=== PATIENT | male | born 1945 | race Caucasian/White ===

== ENCOUNTER 2017-09-30 07:25 | Day surgery (SDC) | payer MEDICARE, BC ==
[2017-09-29 08:18] VITALS: BMI 32.5
[~2017-09-30 07:25] MED LIST: LACTATED RINGERS 1,000 ML IV SCH
[2017-09-30] MEDS ORDERED: LIDOCAINE 1% 20 ML VIAL (10MG/ML) FOR IV START INTRADERMA ONE (07:55)
[2017-09-30 07:56] VITALS: RESP 16; TEMP 97
[2017-09-30 08:11] LABS: Glucose,Whole Blood 140 mg/dL (75-99)
[2017-09-30] MEDS ORDERED: fentaNYL (PF) 50 MCG/ML 2 ML AMP ONE (08:55)
[2017-09-30] MEDS ORDERED: GLYCOPYRROLATE 0.2 MG/ML 2 ML VIAL ONE (08:55)
[2017-09-30] MEDS ORDERED: PROPOFOL 10 MG/ML 20 ML VIAL IV ONE (08:55)
--- NOTE | 2017-09-30 09:14 | P.PCN ---
Date of Procedure: 09/30/17 Procedure(s) Performed: Procedure: Esophagogastroduodenoscopy and biopsy. Preoperative diagnosis: Gastroesophageal reflux disease. Postoperative diagnosis: 1. Small sliding hiatal hernia with no obvious esophagitis or complicated reflux disease. 2. Mild antral gastritis. 3. Multiple biopsies obtained from the duodenum, antrum and esophagus. Preparation and sedation: Was provided by anesthesia. Brief clinical history: The patient is a 72-year-old male who is scheduled for this evaluation for further evaluation of gastroesophageal reflux disease. He has been on treatment with omeprazole for several years and over the last year he has required to take it twice a day because of breakthrough symptoms and chest pains. The patient has been recently evaluated by cardiology and pulmonary for his chest pains and it is felt that his symptoms may be related to reflux. He has no other alarm symptoms such as dysphagia, weight loss or bleeding. Procedure: With the patient on his left lateral decubitus position and after informed consent and adequate sedation, I passed the Olympus-GIF 160 video upper endoscope through the cricopharyngeus down the esophagus. GE junction was around 40-41 cm from the incisors and there was a small sliding hiatal hernia. There was no evidence of esophagitis or complicated reflux disease. The endoscope was then passed into the stomach which was insufflated with air and inspected in detail including the retroflex view in the cardia. There was some mottling and erythema in the antrum but no ulcers or erosions. Pyloric channel, duodenal bulb, post bulbar area and descending duodenum appeared within normal limits. Because of his symptoms, I obtained biopsies from the duodenum, antrum and esophagus before the endoscope was withdrawn. The patient tolerated the procedure well. Plan: The patient was reassured. Will await pathology results. He will follow up in the office as planned and would keep you updated on his progress.
[2017-09-30 09:26] VITALS: BP 132/84; PULSE 61
== END 2017-09-30 09:58 | disposition home or self-care (01) ==
LOC: ORWHC2ENDO 07:25
DX: K21.0 Gastro-esophageal reflux disease with esophagitis (principal); K44.9 Diaphragmatic hernia without obstruction or gangrene; E11.9 Type 2 diabetes mellitus without complications; Z79.84 Long term (current) use of oral hypoglycemic drugs; I10 Essential (primary) hypertension; E78.5 Hyperlipidemia, unspecified; Z86.711 Personal history of pulmonary embolism; F41.9 Anxiety disorder, unspecified; F32.9 Major depressive disorder, single episode, unspecified; Z79.51 Long term (current) use of inhaled steroids; Z79.899 Other long term (current) drug therapy
CPT/HCPCS: 88305; 43239; J3010; J2704

== ENCOUNTER 2017-10-20 13:05 | Inpatient (IN) | payer MEDICARE, BC ==
[2017-10-20] MEDS ORDERED: ASPIRIN 81 MG PO STA (13:34)
[2017-10-20] MEDS ORDERED: NITROGLYCERIN SL TABS 0.4 MG TAB SUBLINGUAL STA (13:34)
--- NOTE | 2017-10-20 13:40 | ED ---
General Adult HPI - General Chief complaint: Chest Pain Stated complaint: Chest pain Time Seen by Provider: 10/20/17 13:26 Source: patient, RN notes reviewed, old records reviewed Mode of arrival: wheelchair Limitations: no limitations - History of Present Illness Initial comments: 72-year-old male presenting with chief complaint of chest pain. Patient has had intermittent chest pain over the past 3 weeks. Pain is worse with exertion , relieved by rest. Describes it as substernal and left-sided chest pressure, dull sensation, he does admit that there is some intermittent episodes of sharp pain. This is associated with dyspnea. Denies any shoulder or arm or jaw pain. States he has had nausea with these episodes. No diaphoresis. Patient has known history of CAD, he follows with cardiology as an outpatient. According to his he had a heart cath approximately 10 years ago, he did have some coronary artery disease but no intervention performed. Patient denies abdominal pain. Denies lower extremity pain or swelling. Denies cough or fever. Denies melena or rectal bleeding - Related Data Home Medications Medication Instructions Recorded Confirmed Atorvastatin [Lipitor] 10 mg PO DAILY 06/15/14 10/20/17 Ascorbic Acid [Vitamin C] 500 mg PO DAILY 06/25/16 10/20/17 DULoxetine HCL [Cymbalta] 60 mg PO DAILY 06/25/16 10/20/17 LORazepam [Lorazepam] 0.5 mg PO HS 06/25/16 10/20/17 Lisinopril [Zestril] 5 mg PO HS 06/25/16 10/20/17 Multivitamins, Thera [Multivitamin 1 tab PO DAILY 06/25/16 10/20/17 (formulary)] Omeprazole 40 mg PO BID 06/25/16 10/20/17 Zinc 50 mg PO DAILY 06/25/16 10/20/17 Fluticasone/Salmeterol [Advair Hfa 2 puff INHALATION RT-BID PRN 09/29/17 230-21 Mcg Inhaler] glipiZIDE [Glucotrol] 5 mg PO DAILY 09/29/17 10/20/17 Aspirin EC [Ecotrin] 325 mg PO DAILY 10/20/17 10/20/17 Allergies Allergy/AdvReac Type Severity Reaction Status Date / Time No Known Allergies Allergy Verified 10/20/17 13:46 Review of Systems ROS Statement: Those systems with pertinent positive or pertinent negative responses have been documented in the HPI. ROS Other: All systems not noted in ROS Statement are negative. Past Medical History Past Medical History: Asthma, Diabetes Mellitus, GERD/Reflux, Hyperlipidemia, Hypertension, Pulmonary Embolus (PE) Additional Past Medical History / Comment(s): PE 1972, diff and pain with swallowing, History of Any Multi-Drug Resistant Organisms: None Reported Past Surgical History: Appendectomy, Cholecystectomy, Heart Catheterization, Tonsillectomy Past Anesthesia/Blood Transfusion Reactions: Motion Sickness Past Psychological History: Anxiety, Depression Smoking Status: Former smoker - Past Family History Mother Family Medical History: No Reported History General Exam Limitations: no limitations General appearance: alert, in no apparent distress Head exam: Present: atraumatic, normocephalic Eye exam: Present: normal appearance, PERRL ENT exam: Present: normal exam Neck exam: Present: normal inspection. Absent: tenderness, meningismus Respiratory exam: Present: normal lung sounds bilaterally. Absent: respiratory distress, wheezes Cardiovascular Exam: Present: regular rate, normal rhythm GI/Abdominal exam: Present: soft, distended. Absent: tenderness, guarding, rebound Extremities exam: Present: normal inspection, normal capillary refill, other ( Bilateral radial pulses are symmetric.). Absent: pedal edema Neurological exam: Present: alert, oriented X3, CN II-XII intact. Absent: motor sensory deficit Psychiatric exam: Present: normal affect, normal mood Skin exam: Present: warm, dry, intact. Absent: cyanosis, diaphoretic Course Vital Signs 10/20/17 10/20/17 10/20/17 13:07 13:41 13:48 Temperature 97.2 F L Pulse Rate 62 57 L Pulse Rate [ 56 L Miniature Model Maker ] Respiratory 18 18 Rate Blood Pressure 173/80 160/90 O2 Sat by Pulse 97 100 Oximetry 10/20/17 10/20/17 13:54 14:52 Temperature 97.8 F Pulse Rate 64 56 L Pulse Rate [ Miniature Model Maker ] Respiratory 18 18 Rate Blood Pressure 111/54 148/74 O2 Sat by Pulse 97 97 Oximetry - Reevaluation(s) Reevaluation #1: 10/20/17 13:39 Patient is comfortable, describes only minimal pain at the time of my initial evaluation. EKG Findings - EKG Comments: EKG Findings:: EKG shows sinus bradycardia, ventricular rate of 56, left anterior fascicular block, T-wave abnormality in lead V3 and biphasic T wave in lead 3. No ST segment elevation. Medical Decision Making - Medical Decision Making 72-year-old male presenting with typical chest pain worse with exertion. Patient does have history of CAD. He has developed 1 on a 10 rest pain. This is relieved with nitroglycerin. Laboratory studies reveal normal white blood cell count, stable hemoglobin, normal kidney function and electrolytes. Troponin is negative. Chest x-ray shows no acute process, no focal pneumonia. Patient is given an aspirin, nitroglycerin and started on heparin the emergency partner. He will be admitted for cardiology evaluation and serial cardiac enzymes. - Lab Data Result diagrams: 10/20/17 13:14 10/20/17 13:14 Lab Results 10/20/17 10/20/17 10/20/17 Range/Units 13:14 13:14 13:14 WBC 5.8 (3.8-10.6) k/uL RBC 4.34 (4.30-5.90) m/uL Hgb 13.3 (13.0-17.5) gm/dL Hct 40.0 (39.0-53.0) % MCV 92.0 (80.0-100.0) fL MCH 30.6 (25.0-35.0) pg MCHC 33.2 (31.0-37.0) g/dL RDW 13.2 (11.5-15.5) % Plt Count 180 (150-450) k/uL Neutrophils % 55 % Lymphocytes % 31 % Monocytes % 8 % Eosinophils % 4 % Basophils % 1 % Neutrophils # 3.2 (1.3-7.7) k/uL Lymphocytes # 1.8 (1.0-4.8) k/uL Monocytes # 0.5 (0-1.0) k/uL Eosinophils # 0.2 (0-0.7) k/uL Basophils # 0.0 (0-0.2) k/uL PT (9.0-12.0) sec INR (<1.2) APTT (22.0-30.0) sec Sodium 141 (137-145) mmol/L Potassium 4.5 (3.5-5.1) mmol/L Chloride 104 (98-107) mmol/L Carbon Dioxide 27 (22-30) mmol/L Anion Gap 10 mmol/L BUN 25 H (9-20) mg/dL Creatinine 1.00 (0.66-1.25) mg/dL Est GFR (MDRD) Af Amer >60 (>60 ml/min/1.73 sqM) Est GFR (MDRD) Non-Af >60 (>60 ml/min/1.73 sqM) Glucose 107 H (74-99) mg/dL Calcium 9.6 (8.4-10.2) mg/dL Magnesium 2.0 (1.6-2.3) mg/dL Total Bilirubin 0.7 (0.2-1.3) mg/dL AST 29 (17-59) U/L ALT 30 (21-72) U/L Alkaline Phosphatase 44 (38-126) U/L Total Creatine Kinase 83 (55-170) U/L CK-MB (CK-2) 1.2 (0.0-2.4) ng/mL CK-MB (CK-2) Rel Index 1.4 Troponin I <0.012 (0.000-0.034) ng/mL NT-Pro-B Natriuret Pep pg/mL Total Protein 6.8 (6.3-8.2) g/dL Albumin 3.9 (3.5-5.0) g/dL 10/20/17 10/20/17 Range/Units 13:14 13:14 WBC (3.8-10.6) k/uL RBC (4.30-5.90) m/uL Hgb (13.0-17.5) gm/dL Hct (39.0-53.0) % MCV (80.0-100.0) fL MCH (25.0-35.0) pg MCHC (31.0-37.0) g/dL RDW (11.5-15.5) % Plt Count (150-450) k/uL Neutrophils % % Lymphocytes % % Monocytes % % Eosinophils % % Basophils % % Neutrophils # (1.3-7.7) k/uL Lymphocytes # (1.0-4.8) k/uL Monocytes # (0-1.0) k/uL Eosinophils # (0-0.7) k/uL Basophils # (0-0.2) k/uL PT 9.8 (9.0-12.0) sec INR 1.0 (<1.2) APTT 22.1 (22.0-30.0) sec Sodium (137-145) mmol/L Potassium (3.5-5.1) mmol/L Chloride (98-107) mmol/L Carbon Dioxide (22-30) mmol/L Anion Gap mmol/L BUN (9-20) mg/dL Creatinine (0.66-1.25) mg/dL Est GFR (MDRD) Af Amer (>60 ml/min/1.73 sqM) Est GFR (MDRD) Non-Af (>60 ml/min/1.73 sqM) Glucose (74-99) mg/dL Calcium (8.4-10.2) mg/dL Magnesium (1.6-2.3) mg/dL Total Bilirubin (0.2-1.3) mg/dL AST (17-59) U/L ALT (21-72) U/L Alkaline Phosphatase (38-126) U/L Total Creatine Kinase (55-170) U/L CK-MB (CK-2) (0.0-2.4) ng/mL CK-MB (CK-2) Rel Index Troponin I (0.000-0.034) ng/mL NT-Pro-B Natriuret Pep 87 pg/mL Total Protein (6.3-8.2) g/dL Albumin (3.5-5.0) g/dL Critical Care Time Critical Care Time: Yes Total Critical Care Time: 35 Disposition Clinical Impression: Unstable angina pectoris Disposition: ADMITTED IP TO THIS [facility] Condition: Stable Referrals: Misha Mayfield MD [Primary Care Provider] - 1-2 days Decision to Admit Reason: Admit from EC Decision Date: 10/20/17 Decision Time: 14:57
[2017-10-20 14:00] LABS: Basophils % (A) 1 %; Eosinophils # (A) 0.2 k/uL (0-0.7); Eosinophils % (A) 4 %; HGB 13.3 gm/dL (13.0-17.5); Lymphocytes # (A) 1.8 k/uL (1.0-4.8); Lymphocytes % (A) 31 %; MCH 30.6 pg (25.0-35.0); MCHC 33.2 g/dL (31.0-37.0); Mean Platelet Volume 7.9; Monocytes # (A) 0.5 k/uL (0-1.0); Monocytes % (A) 8 %; Neutrophils # (A) 3.2 k/uL (1.3-7.7); Neutrophils % (A) 55 %; Platelet Count 180 k/uL (150-450); RBC 4.34 m/uL (4.30-5.90); RDW 13.2 % (11.5-15.5); WBC 5.8 k/uL (3.8-10.6)
[2017-10-20 14:04] LABS: Prothrombin Time 9.8 sec (9.0-12.0)
[2017-10-20 14:05] LABS: Partial Thromboplastin Time 22.1 sec (22.0-30.0)
[2017-10-20 14:10] LABS: ALT 30 U/L (21-72); AST 29 U/L (17-59); Albumin 3.9 g/dL (3.5-5.0); Alkaline Phosphatase 44 U/L (38-126); Anion Gap 10 mmol/L; Blood Urea Nitrogen 25 mg/dL (9-20); Calcium 9.6 mg/dL (8.4-10.2); Carbon Dioxide 27 mmol/L (22-30); Chloride 104 mmol/L (98-107); Glucose 107 mg/dL (74-99); Potassium 4.5 mmol/L (3.5-5.1); Sodium 141 mmol/L (137-145); Total Bilirubin 0.7 mg/dL (0.2-1.3); Total Protein 6.8 g/dL (6.3-8.2)
--- NOTE | 2017-10-20 14:15 | XR ---
EXAMINATION TYPE: XR chest 2V DATE OF EXAM: 10/20/2017 COMPARISON: CT chest July 29, 2016. HISTORY: Chest pain today. TECHNIQUE: Frontal and lateral views of the chest are obtained. FINDINGS: There is chronic emphysematous change with scattered areas of scarring and/or atelectasis. There is no new suspicious focal airspace opacity, pleural effusion, or pneumothorax seen bilateral ly The cardiac silhouette size is upper limits of normal currently. The osseous structures are inta ct. Cholecystectomy clips are noted on lateral view IMPRESSION: Chronic changes without acute pulmonary process.
[2017-10-20 14:29] LABS: Creatine Kinase 83 U/L (55-170)
[2017-10-20 14:40] LABS: Creatine Kinase MB 1.2 ng/mL (0.0-2.4); Troponin I <0.012 ng/mL (0.000-0.034)
[2017-10-20] MEDS ORDERED: HEPARIN SODIUM,PORCINE 5,000 UNIT/ML 1 ML VIAL IV ONE (14:47)
[2017-10-20] MEDS ORDERED: HEPARIN SODIUM,PORCINE 5,000 UNIT/ML 1 ML VIAL IV PRN (14:47)
[2017-10-20] MEDS ORDERED: ONDANSETRON 4 MG/2 ML VIAL IVP PRN (14:48)
[2017-10-20] MEDS ORDERED: NALOXONE 0.4 MG/ML 1 ML VIAL IV PRN (14:48)
[2017-10-20] MEDS ORDERED: SYMBICORT 160-4.5 MCG INHALER INHALATION PRN (14:56)
[2017-10-20] MEDS ORDERED: HEPARIN SOD,PORK IN 0.45% NACL 25,000 UNIT in 0.45% NACL 1 500ML.BAG IV SCH (15:00)
[2017-10-20] MEDS: SODIUM CHLORIDE 0.9% 1,000 ML IV SCH (15:14)
--- NOTE | 2017-10-20 15:43 | P.HPIM ---
History of Present Illness H&P Date: 10/20/17 Chief Complaint: Chest pain The patient is a 72-year-old male with a past medical history of type 2 diabetes essential hypertension and dyslipidemia presented to the ER with chief complaint of chest pain. The patient complains of 3 weeks of exertional chest pain relieved by rest and increasing exercising intolerance. His most recent episode occurred while walking upstairs returning from the mailbox where he had midsternal tender to 10 nonradiating chest pain associated with shortness of breath and relieved by rest, the patient reports this episode lasted approximately 90 minutes, without any associated diaphoresis nausea or vomiting. The patient reports increasingly poor intolerance to exercise beginning 3 weeks ago. The patient reports not being able to go as long on his treadmill where he used to be able to go for 60 minutes and now only being able to go for an hour and has some fear associated with going back on the treadmill. The patient reports pretty good blood sugar control and his A1c is approximately 6. He denies any recent history of smoking and states that he has not smoked for over 40 years. In the ER he had a EKG CBC chest x-ray, cardiac enzymes that were negative for suggestion of acute ischemia, his EKG showed sinus bradycardia. He received aspirin and nitroglycerin and was started on a heparin drip in the ED Review of Systems Other 14 point review of systems are negative except for HPI Past Medical History Past Medical History: Asthma, Diabetes Mellitus, GERD/Reflux, Hyperlipidemia, Hypertension, Pulmonary Embolus (PE) Additional Past Medical History / Comment(s): PE 1972, diff and pain with swallowing, History of Any Multi-Drug Resistant Organisms: None Reported Past Surgical History: Appendectomy, Cholecystectomy, Heart Catheterization, Tonsillectomy Past Anesthesia/Blood Transfusion Reactions: Motion Sickness Past Psychological History: Anxiety, Depression Smoking Status: Former smoker - Past Family History Mother Family Medical History: No Reported History Medications and Allergies Home Medications Medication Instructions Recorded Confirmed Type Atorvastatin [Lipitor] 10 mg PO DAILY 06/15/14 10/20/17 History Ascorbic Acid [Vitamin C] 500 mg PO DAILY 06/25/16 10/20/17 History DULoxetine HCL [Cymbalta] 60 mg PO DAILY 06/25/16 10/20/17 History LORazepam [Lorazepam] 0.5 mg PO HS 06/25/16 10/20/17 History Lisinopril [Zestril] 5 mg PO HS 06/25/16 10/20/17 History Multivitamins, Thera [Multivitamin 1 tab PO DAILY 06/25/16 10/20/17 History (formulary)] Omeprazole 40 mg PO BID 06/25/16 10/20/17 History Zinc 50 mg PO DAILY 06/25/16 10/20/17 History Fluticasone/Salmeterol [Advair Hfa 2 puff INHALATION RT-BID PRN 09/29/17 History 230-21 Mcg Inhaler] glipiZIDE [Glucotrol] 5 mg PO DAILY 09/29/17 10/20/17 History Aspirin EC [Ecotrin] 325 mg PO DAILY 10/20/17 10/20/17 History Allergies Allergy/AdvReac Type Severity Reaction Status Date / Time No Known Allergies Allergy Verified 10/20/17 13:46 Physical Exam Vitals: Vital Signs Temp Pulse Pulse Resp BP Pulse Ox 10/20/17 15:18 55 L 18 154/88 97 10/20/17 14:52 97.8 F 56 L 18 148/74 97 10/20/17 13:54 64 18 111/54 97 10/20/17 13:48 57 L 18 160/90 100 10/20/17 13:41 56 L 10/20/17 13:07 97.2 F L 62 18 173/80 97 Intake and Output 10/20/17 10/20/17 10/20/17 06:59 14:59 22:59 Other: Weight 108.862 kg Patient Weight 10/21/17 06:59 Weight 108.862 kg Constitutional: No acute distress, conversant, pleasant Eyes: Anicteric sclerae, moist conjunctiva, no lid-lag, PERRLA ENMT: NC/AT,Oropharynx clear, no erythema, exudates Neck:Supple, FROM, no masses, or JVD, No carotid bruits; No thyromegaly Lungs: Clear to auscultation, Clear to percussion, Normal respiratory effort, no accessory muscle use Cardiovascular: Heart regular in rate and rhythm, No murmurs, gallops, or rubs no peripheral edema Abdominal: Soft Nontender, nom distended, no guarding, no rebound or rigidity, Normoactive bowel sounds No hepatomegaly, No splenomegaly, No palpable mass No abdominal wall hernia noted Skin: Normal temperature, tone, texture, turgor, No induration No subcutaneous nodules, No rash, lesions, No ulcers Extremities:No digital cyanosis No clubbing, Pedal pulses intact and symmetrical Radial pulses intact and symmetrical Normal gait and station, No calf tenderness Psychiatric: Alert and oriented to person, place and time, Appropriate affect Intact judgement Neuro: Muscles Strength 5/5 in all 4 extremities, Sensation to light touch grossly present throughout, Cranial nerves II-XII grossly intact. No focal sensory deficits Results CBC & Chem 7: 10/20/17 13:14 10/20/17 13:14 Labs: Abnormal Lab Results - Last 24 Hours (Table) 10/20/17 Range/Units 13:14 BUN 25 H (9-20) mg/dL Glucose 107 H (74-99) mg/dL Assessment and Plan (1) Unstable angina pectoris Current Visit: Yes Status: Acute Code(s): I20.0 - UNSTABLE ANGINA SNOMED Code(s): 4035527 (2) Type 2 diabetes mellitus Current Visit: Yes Status: Acute Code(s): E11.9 - TYPE 2 DIABETES MELLITUS WITHOUT COMPLICATIONS SNOMED Code(s): 46463535 (3) Hyperlipidemia Current Visit: Yes Status: Acute Code(s): E78.5 - HYPERLIPIDEMIA, UNSPECIFIED SNOMED Code(s): 96507088 (4) GERD (gastroesophageal reflux disease) Current Visit: No Status: Acute Code(s): K21.9 - GASTRO-ESOPHAGEAL REFLUX DISEASE WITHOUT ESOPHAGITIS SNOMED Code(s): 458325235 Plan: The patient is placed on observation after presenting with chest pain concerning for unstable angina, his initial EKG and cardiac enzymes are negative for any acute ischemia, we'll continue to cycle troponins, he was given aspirin nitroglycerin and started on heparin drip in the ER, resume his statin therapy and check a lipid panel will also check a 2-D echocardiogram and nuclear stress test tomorrow consult cardiology, start Accucheks and start correctional scale insulin coverage and continue to follow his clinical course.
[2017-10-20] MEDS ORDERED: INSULIN ASPART 100 UNIT/ML 1 ML 10 ML VIAL SQ PRN (15:57)
[2017-10-20 17:05] LABS: Glucose,Whole Blood 86 mg/dL (75-99)
[2017-10-20] MEDS: PANTOPRAZOLE 40 MG TABLET PO SCH (18:40)
--- NOTE | 2017-10-20 19:11 | ECHOF ---
Referral Reason:Chest pain MEASUREMENTS -------- HEIGHT: 182.9 cm WEIGHT: 108.9 kg BP: RVIDd: 2.2 cm (< 3.3) IVSd: 1.2 cm (0.6 - 1.1) LVIDd: 5.3 cm (3.9 - 5.3) LVPWd: 1.2 cm (0.6 - 1.1) IVSs: 1.5 cm LVIDs: 3.2 cm LVPWs: 1.4 cm LAESV Index (A-L): 24.31 ml/m Ao Diam: 4.3 cm (2.0 - 3.7) AV Cusp: 2.3 cm (1.5 - 2.6) LA Diam: 3.9 cm (2.7 - 3.8) EPSS: 0.5 cm MV E Lazaro: 0.68 m/s MV DecT: 266 ms MV A Lazaro: 0.88 m/s MV E/A Ratio: 0.77 RAP: 5.00 mmHg RVSP: 29.35 mmHg MV EF SLOPE: 116.53 mm/s (70 - 150) MV EXCURSION: 2.26 cm (> 18.000) FINDINGS -------- Sinus rhythm. This was a technically adequate study. The left ventricular size is normal. There is mild concentric left ventricular hypertrophy. Overa ll left ventricular systolic function is normal with, an EF between 55 - 60 %. The right ventricle is normal in size and function. Normal LA size by volume 22+/-6 ml/m2. The right atrium is normal in size. Aortic valve is trileaflet and is mildly thickened. There is mild aortic regurgitation. There is no evidence of aortic stenosis. The mitral valve leaflets are mildly thickened. There is trace to mild mitral regurgitation. Trace tricuspid regurgitation present. Right ventricular systolic pressure is normal at < 35 mmHg. There is no evidence of pulmonary hypertension. Trace/mild (physiologic) pulmonic regurgitation. The aortic root is borderline dilated up to 3.8 cm. Normal inferior vena cava with normal inspiratory collapse consistent with estimated right atrial pre ssure of 5 mmHg. Echo free space indicative of a pericardial fat pad. CONCLUSIONS -------- 1. Sinus rhythm. 2. This was a technically adequate study. 3. The left ventricular size is normal. 4. There is mild concentric left ventricular hypertrophy. 5. Overall left ventricular systolic function is normal with, an EF between 55 - 60 %. 6. Normal LA size by volume 22+/-6 ml/m2. 7. Aortic valve is trileaflet and is mildly thickened. 8. There is mild aortic regurgitation. 9. The mitral valve leaflets are mildly thickened. 10. There is trace to mild mitral regurgitation. 11. Trace tricuspid regurgitation present. 12. Right ventricular systolic pressure is normal at < 35 mmHg. 13. There is no evidence of pulmonary hypertension. 14. Trace/mild (physiologic) pulmonic regurgitation. 15. The aortic root is borderline dilated up to 3.8 cm. 16. Echo free space indicative of a pericardial fat pad. WELFARE WORKER: Ayush Newell RDCS
[2017-10-20 20:52] LABS: Creatine Kinase 70 U/L (55-170)
[2017-10-20 20:58] LABS: Glucose,Whole Blood 120 mg/dL (75-99)
[2017-10-20 21:03] LABS: Creatine Kinase MB 1.2 ng/mL (0.0-2.4); Troponin I <0.012 ng/mL (0.000-0.034)
[2017-10-20] MEDS: LISINOPRIL 5 MG TAB PO SCH (21:16)
[2017-10-20] MEDS: LORazepam 0.5 MG TAB PO SCH (21:16)
[2017-10-21 02:59] LABS: Basophils % (A) 1 %; Eosinophils # (A) 0.2 k/uL (0-0.7); Eosinophils % (A) 4 %; HCT 38.8 % (39.0-53.0); HGB 13.2 gm/dL (13.0-17.5); Lymphocytes # (A) 1.9 k/uL (1.0-4.8); Lymphocytes % (A) 32 %; MCH 31.4 pg (25.0-35.0); MCV 92.2 fL (80.0-100.0); Mean Platelet Volume 7.7; Monocytes # (A) 0.4 k/uL (0-1.0); Monocytes % (A) 7 %; Neutrophils # (A) 3.2 k/uL (1.3-7.7); Neutrophils % (A) 55 %; Platelet Count 172 k/uL (150-450); RBC 4.21 m/uL (4.30-5.90); RDW 13.3 % (11.5-15.5); WBC 5.8 k/uL (3.8-10.6)
[2017-10-21 03:07] LABS: Cholesterol 129 mg/dL (<200); HDL Cholesterol 54 mg/dL (40-60); LDL Cholesterol,Calculated 65 mg/dL (0-99); Triglycerides 50 mg/dL (<150)
[2017-10-21 03:27] LABS: Creatine Kinase 62 U/L (55-170)
[2017-10-21 03:40] LABS: Creatine Kinase MB 0.8 ng/mL (0.0-2.4); Troponin I <0.012 ng/mL (0.000-0.034)
[2017-10-21] MEDS ORDERED: AMINOPHYLLINE 500 MG/20 ML VIAL IV PRN (05:00)
[2017-10-21] MEDS ORDERED: REGADENOSON 0.4 MG/5 ML SYRINGE IV ONE (06:00)
[2017-10-21 06:59] LABS: Glucose,Whole Blood 127 mg/dL (75-99)
[2017-10-21] MEDS ORDERED: ATORVASTATIN 10 MG TAB PO SCH (09:00)
[2017-10-21] MEDS ORDERED: ASPIRIN 325 MG TAB PO SCH (09:00)
[2017-10-21] MEDS ORDERED: SODIUM CHLORIDE 0.9% 1,000 ML in EMPTY BAG 1 BAG IV ONE (09:58)
[2017-10-21] MEDS: ATORVASTATIN 80 MG TAB PO STA ×2 (10:07→18:00)
[2017-10-21] MEDS: PANTOPRAZOLE 40 MG TABLET PO SCH ×2 (10:07→18:12)
[2017-10-21] MEDS: DULoxetine HCL 60 MG CAPSULE.DR PO SCH (10:07)
[2017-10-21] MEDS ORDERED: RX INFO: IV CONTRAST WAS GIVEN 1 EACH MISC MISCELLANE PRN (11:03)
[2017-10-21 12:16] LABS: Glucose,Whole Blood 132 mg/dL (75-99)
--- NOTE | 2017-10-21 13:23 | CT ---
EXAMINATION TYPE: CT angio chest DATE OF EXAM: 10/21/2017 COMPARISON: CT chest 07/29/2016, chest x-ray 10/20/2017 HISTORY: Patient complains of chest pain. CT DLP: 481.6 mGycm Automated exposure control for dose reduction was used. CONTRAST: CTA scan of the thorax is performed with IV Contrast, patient injected with 100 mL of Omnipaque 350, pulmonary embolism protocol. MIP images are created and reviewed. 3D reconstructed images are creat ed on an independent workstation and reviewed. FINDINGS: LUNGS: The lungs are remarkable for some interstitial changes at the lung bases, no evident mass, the re is some minimal probable inflammatory change at the posterior costophrenic angle on the right Ther e is no pleural effusion or pneumothorax seen. The tracheobronchial tree is patent. AORTA: The heart is enlarged. Aortic root is dilated at 4.5 cm, ascending aorta measures 0.2 cm. Pul monary artery is prominent 3.7 cm. MEDIASTINUM: There is abnormal increased density, filling defects within the right pulmonary artery, segmental branches to both lower lobes, right middle lobe as well as segmental upper lobe branches on the right and left. OTHER: Suspect a hiatal hernia. IMPRESSION: POSITIVE EXAM FOR PULMONARY EMBOLISM. AORTIC ANEURYSM, CARDIOMEGALY. Results relayed to elizabeth Mckeon's nurse, telephonically at the time of interpretation of the exam. Additional findings above.
[2017-10-21] MEDS ORDERED: APIXABAN 5 MG TAB PO SCH (13:30)
--- NOTE | 2017-10-21 14:00 | P.CRDCN ---
History of Present Illness Consult date: 10/21/17 Consult reason: chest pain History of present illness: Mr. Sanders is a pleasant 72-year-old male past medical history significant for asthma, diabetes mellitus, gastroesophageal reflux disease, dyslipidemia, hypertension and PE in 1971. He also admits to history of smoking , quit 20 years ago. He follows with Dr. DAV Kelly in the office. We have been asked to see him in consultation for complaints of chest pain. He states over the previous 3 weeks he has noticed increasing dyspnea on exertion and chest tightness. It first started while he was at the gym working out. He was on the treadmill and had been on for approximately 20 minutes when he started feeling chest tightness and shortness of breath. He immediately stopped and the pain went away. Since then he has noticed progressive dyspnea on exertion with chest pain as well. The other day he was walking to his mailbox which is a long hike down his driveway and he started experiencing again this chest tightness with shortness of breath. He describes his chest pain as a heavy sensation in the midsternal region associated with nausea, dizziness, palpitations and shortness of breath. He states the nausea has been pretty consistent over the previous 3 weeks but no vomiting. His symptoms are worse with exertion and resolved with rest. He also describes a dizzy sensation with any change in position such as getting out of the car or up out of a chair. EKG on arrival reveals sinus bradycardia with T-wave inversion in lead III and V3. No acute ST abnormalities. There is no old EKG for comparison. Chest xray is negative for an acute cardiopulmonary process. Laboratory data reviewed, hemoglobin 13.2, platelets 172, potassium 4.5, magnesium 2.0, cardiac enzymes negative 3, creatinine 1.0. Current cardiac medications include lisinopril 5 mg daily, atorvastatin 10 mg daily and aspirin 325 mg daily. Most recent cardiac catheterization performed 2012 reveals normal coronary arteries with no evidence of stenosis or obstruction. 09/2016 he had a normal low-level exercise stress test with no stress induced evidence of ischemia. Review of Systems At the time my exam: CONSTITUTIONAL: Denies fever. Denies chills. EYES: Denies blurred vision. Denies vision changes. Denies eye pain. EARS, NOSE, MOUTH & THROAT: Denies headache. Denies sore throat. Denies ear pain. CARDIOVASCULAR: Denies chest pain. Denies shortness of breath. Denies orthopnea. Denies PND. Denies palpitations. RESPIRATORY: Denies cough. GASTROINTESTINAL: Denies abdominal pain. Denies diarrhea. Denies constipation. Complains of nausea. Denies vomiting. MUSCULOSKELETAL: Denies myalgias. INTEGUMENTARY: Denies pruitis. Denies rash. NEUROLOGIC: Denies numbness. Denies tingling. Denies weakness. PSYCHIATRIC: Denies anxiety. Denies depression. ENDOCRINE: Denies fatigue. Denies weight change. Denies polydipsia. Denies polyurina. GENITOURINARY: Denies burning, hematuria or urgency with micturation. HEMATOLOGIC: Denies history of anemia. Denies bleeding. Past Medical History Past Medical History: Asthma, Diabetes Mellitus, GERD/Reflux, Hyperlipidemia, Hypertension, Pulmonary Embolus (PE) Additional Past Medical History / Comment(s): PE 1971, diff and pain with swallowing, History of Any Multi-Drug Resistant Organisms: None Reported Past Surgical History: Appendectomy, Cholecystectomy, Heart Catheterization, Tonsillectomy Past Anesthesia/Blood Transfusion Reactions: Motion Sickness Past Psychological History: Anxiety, Depression Smoking Status: Former smoker - Past Family History Mother Family Medical History: No Reported History Medications and Allergies Home Medications Medication Instructions Recorded Confirmed Type Atorvastatin [Lipitor] 10 mg PO DAILY 06/15/14 10/20/17 History Ascorbic Acid [Vitamin C] 500 mg PO DAILY 06/25/16 10/20/17 History DULoxetine HCL [Cymbalta] 60 mg PO DAILY 06/25/16 10/20/17 History LORazepam [Lorazepam] 0.5 mg PO HS 06/25/16 10/20/17 History Lisinopril [Zestril] 5 mg PO HS 06/25/16 10/20/17 History Multivitamins, Thera [Multivitamin 1 tab PO DAILY 06/25/16 10/20/17 History (formulary)] Omeprazole 40 mg PO BID 06/25/16 10/20/17 History Zinc 50 mg PO DAILY 06/25/16 10/20/17 History Fluticasone/Salmeterol [Advair Hfa 2 puff INHALATION RT-BID PRN 09/29/17 History 230-21 Mcg Inhaler] glipiZIDE [Glucotrol] 5 mg PO DAILY 09/29/17 10/20/17 History Aspirin EC [Ecotrin] 325 mg PO DAILY 10/20/17 10/20/17 History Allergies Allergy/AdvReac Type Severity Reaction Status Date / Time No Known Allergies Allergy Verified 10/20/17 13:46 Physical Exam Vitals: Vital Signs Temp Pulse Pulse Pulse Resp BP BP 10/21/17 07:45 97.3 F L 56 L 18 140/77 10/21/17 04:00 18 10/21/17 03:54 97.6 F 61 18 138/69 10/21/17 00:00 18 10/20/17 23:42 62 18 136/65 10/20/17 20:00 18 10/20/17 19:42 98.2 F 56 L 18 154/80 10/20/17 15:58 97.4 F L 52 L 18 177/81 10/20/17 15:18 55 L 18 154/88 10/20/17 14:52 97.8 F 56 L 18 148/74 10/20/17 13:54 64 18 111/54 10/20/17 13:48 57 L 18 160/90 10/20/17 13:41 56 L 10/20/17 13:07 97.2 F L 62 18 173/80 Pulse Ox 10/21/17 07:45 95 10/21/17 04:00 10/21/17 03:54 100 10/21/17 00:00 10/20/17 23:42 94 L 10/20/17 20:00 10/20/17 19:42 94 L 10/20/17 15:58 99 10/20/17 15:18 97 10/20/17 14:52 97 10/20/17 13:54 97 10/20/17 13:48 100 10/20/17 13:41 10/20/17 13:07 97 Intake and Output 10/20/17 10/21/17 10/21/17 22:59 06:59 14:59 Intake Total 361.182 186.41 Balance 361.182 186.41 Intake: Intake, IV Titration 121.182 186.41 Amount Heparin Sod,Pork in 0.45% 121.182 186.41 NaCl 25,000 unit In 0.45 % NaCl 1 500ml.bag @ 9.2 UNITS/KG/HR 20.03 mls/hr IV .Q24H [facility] Rx#: [id number] Oral 240 Other: # Voids 1 Weight 111.7 kg Results 10/21/17 02:42 10/20/17 13:14 Cardiac Enzymes 10/20/17 10/20/17 10/20/17 Range/Units 13:14 13:14 20:18 AST 29 (17-59) U/L CK-MB (CK-2) 1.2 1.2 (0.0-2.4) ng/mL Troponin I <0.012 <0.012 (0.000-0.034) ng/mL 10/21/17 Range/Units 02:42 AST (17-59) U/L CK-MB (CK-2) 0.8 (0.0-2.4) ng/mL Troponin I <0.012 (0.000-0.034) ng/mL Coagulation 10/20/17 10/20/17 10/21/17 Range/Units 13:14 20:18 02:42 PT 9.8 (9.0-12.0) sec APTT 22.1 37.9 H 82.2 H (22.0-30.0) sec Lipids 10/21/17 Range/Units 02:42 Triglycerides 50 (<150) mg/dL Cholesterol 129 (<200) mg/dL HDL Cholesterol 54 (40-60) mg/dL CBC 10/20/17 10/21/17 Range/Units 13:14 02:42 WBC 5.8 5.8 (3.8-10.6) k/uL RBC 4.34 4.21 L (4.30-5.90) m/uL Hgb 13.3 13.2 (13.0-17.5) gm/dL Hct 40.0 38.8 L (39.0-53.0) % Plt Count 180 172 (150-450) k/uL Comprehensive Metabolic Panel 10/20/17 Range/Units 13:14 Sodium 141 (137-145) mmol/L Potassium 4.5 (3.5-5.1) mmol/L Chloride 104 (98-107) mmol/L Carbon Dioxide 27 (22-30) mmol/L BUN 25 H (9-20) mg/dL Creatinine 1.00 (0.66-1.25) mg/dL Glucose 107 H (74-99) mg/dL Calcium 9.6 (8.4-10.2) mg/dL AST 29 (17-59) U/L ALT 30 (21-72) U/L Alkaline Phosphatase 44 (38-126) U/L Total Protein 6.8 (6.3-8.2) g/dL Albumin 3.9 (3.5-5.0) g/dL Current Medications Generic Name Dose Route Start Last Admin Trade Name Freq PRN Reason Stop Dose Admin Aminophylline 100 mg 10/21/17 05:00 Aminophylline IV 10/21/17 23:59 ONCE PRN Patient Response Aspirin 325 mg 10/21/17 09:00 Aspirin PO DAILY [facility] Atorvastatin Calcium 10 mg 10/21/17 09:00 Lipitor PO DAILY [facility] Budesonide/Formoterol Fumarate 2 puff 10/20/17 14:56 Symbicort 160-4.5 Mcg Inhaler INHALATION RT-BID PRN Shortness Of Breath Duloxetine HCl 60 mg 10/21/17 09:00 Cymbalta PO DAILY [facility] Heparin Sodium (Porcine) 0 unit 10/20/17 14:47 10/20/17 21:16 Heparin IV 4,000 unit PER PROTOCOL PRN Administration Low PTT Protocol Heparin Sodium/Sodium Chloride 500 mls @ 20.03 mls/hr 10/20/17 15:00 04:19 25,000 unit/ Sodium Chloride IV 11.31 units/kg/hr .Q24H [facility] 24.63 mls/hr Protocol Titration 9.2 UNITS/KG/HR Sodium Chloride 1,000 mls @ 20 mls/hr 10/20/17 15:00 10/20/17 15:14 Saline 0.9% IV 20 mls/hr .Q24H [facility] Administration Insulin Aspart 0 unit 10/20/17 15:57 Novolog SQ ONCE PRN Blood Sugar - High Protocol Lisinopril 5 mg 10/20/17 21:00 10/20/17 21:16 Zestril PO 5 mg HS [facility] Administration Lorazepam 0.5 mg 10/20/17 21:00 10/20/17 21:16 Ativan PO 0.5 mg HS [facility] Administration Naloxone HCl 0.2 mg 10/20/17 14:48 Narcan IV Q2M PRN Opioid Reversal Ondansetron HCl 4 mg 10/20/17 14:48 Zofran IVP Q8HR PRN Nausea And Vomiting Pantoprazole Sodium 40 mg 10/20/17 17:30 10/20/17 18:40 Protonix PO 40 mg AC-BID [facility] Administration Intake and Output 10/20/17 10/21/17 10/21/17 22:59 06:59 14:59 Intake Total 361.182 186.41 Balance 361.182 186.41 Intake: Intake, IV Titration 121.182 186.41 Amount Heparin Sod,Pork in 0.45% 121.182 186.41 NaCl 25,000 unit In 0.45 % NaCl 1 500ml.bag @ 9.2 UNITS/KG/HR 20.03 mls/hr IV .Q24H [facility] Rx#: [id number] Oral 240 Other: # Voids 1 Weight 111.7 kg 10/21/17 02:42 10/20/17 13:14 Assessment and Plan Assessment: ASSESSMENT 1. Unstable angina, acute coronary event has been ruled out with negative cardiac enzymes. 2. Hypertension 3. Diabetes mellitus 4. Dyslipidemia 5. Remote history of PE PLAN Obtain 2D echocardiogram and doppler study to assess cardiac structure and function. Check d-dimer. If d-dimer is normal we will recommend he proceed with cardiac catheterization to assess for progression or coronary artery disease. I have discussed the risks , benefits and alternative therapies for the above-mentioned procedure and for both sedation/analgesia as well as necessary blood product administration, if indicated, as they pertain to this patient. The patient has indicated understanding and acceptance of the risks and procedures. Questions have been answered appropriately and he is agreeable to move forward with above stated procedure. This will be boarded with Dr. Kelly tomorrow morning. Thank you kindly for this consultation. Nurse Practitioner note has been reviewed, I agree with a documented findings and plan of care. Patient was seen and examined.
[2017-10-21] MEDS: APIXABAN 5 MG TAB PO SCH ×2 (14:40→20:22)
--- NOTE | 2017-10-21 14:53 | P.PN ---
Subjective Progress Note Date: 10/21/17 Patient complaining of just mild chest discomfort today, denies any headache or blurry vision, does report some shortness of air. Vitals are stable. Recent CTA confirming acute pulmonary embolism, Otherwise no acute events overnight Objective - Vital Signs Vital signs: Vital Signs Temp 98.1 F 10/21/17 11:41 Pulse 56 L 10/21/17 12:00 Resp 18 10/21/17 12:00 BP 137/70 10/21/17 11:41 Pulse Ox 94 L 10/21/17 11:41 Intake & Output 10/20/17 10/21/17 10/21/17 18:59 06:59 18:59 Intake Total 240 307.592 240 Balance 240 307.592 240 Weight 111.7 kg Intake: Intake, IV Titration 307.592 Amount Heparin Sod,Pork in 0.45% 307.592 NaCl 25,000 unit In 0.45 % NaCl 1 500ml.bag @ 9.2 UNITS/KG/HR 20.03 mls/hr IV .Q24H [facility] Rx#: [id number] Oral 240 240 Other: Voiding Method Toilet # Voids 1 - Exam Constitutional: No acute distress, conversant, pleasant Eyes: Anicteric sclerae, moist conjunctiva, no lid-lag, PERRLA ENMT: NC/AT,Oropharynx clear, no erythema, exudates Neck:Supple, FROM, no masses, or JVD, No carotid bruits; No thyromegaly Lungs: Clear to auscultation, Clear to percussion, Normal respiratory effort, no accessory muscle use Cardiovascular: Heart regular in rate and rhythm, No murmurs, gallops, or rubs no peripheral edema Abdominal: Soft Nontender, nom distended, no guarding, no rebound or rigidity, Normoactive bowel sounds No hepatomegaly, No splenomegaly, No palpable mass No abdominal wall hernia noted Skin: Normal temperature, tone, texture, turgor, No induration No subcutaneous nodules, No rash, lesions, No ulcers Extremities:No digital cyanosis No clubbing, Pedal pulses intact and symmetrical Radial pulses intact and symmetrical Normal gait and station, No calf tenderness Psychiatric: Alert and oriented to person, place and time, Appropriate affect Intact judgement Neuro: Muscles Strength 5/5 in all 4 extremities, Sensation to light touch grossly present throughout, Cranial nerves II-XII grossly intact. No focal sensory deficits - Labs CBC & Chem 7: 10/21/17 02:42 10/20/17 13:14 Labs: Abnormal Lab Results - Last 24 Hours (Table) 10/20/17 10/20/17 10/21/17 Range/Units 20:18 20:50 02:42 RBC 4.21 L (4.30-5.90) m/uL Hct 38.8 L (39.0-53.0) % APTT 37.9 H (22.0-30.0) sec D-Dimer (<0.60) mg/L FEU POC Glucose (mg/dL) 120 H (75-99) mg/dL 10/21/17 10/21/17 10/21/17 Range/Units 02:42 06:56 09:59 RBC (4.30-5.90) m/uL Hct (39.0-53.0) % APTT 82.2 H (22.0-30.0) sec D-Dimer 3.66 H (<0.60) mg/L FEU POC Glucose (mg/dL) 127 H (75-99) mg/dL 10/21/17 Range/Units 12:13 RBC (4.30-5.90) m/uL Hct (39.0-53.0) % APTT (22.0-30.0) sec D-Dimer (<0.60) mg/L FEU POC Glucose (mg/dL) 132 H (75-99) mg/dL - Imaging and Cardiology CT scan - chest: other (CT of the chest positive for pulmonary embolism aortic aneurysm and cardiomegaly) Assessment and Plan (1) Pulmonary embolism Narrative/Plan: * CT of the chest showing acute pulmonary embolism after the patient was noted to have an elevated d-dimer at 3.6 * Patient started on Eliquis 10mg PO BID * Pulmonary is apparently been consulted and will be following the patient * 2-D echocardiogram showing an ejection fraction of 55-60% with no evidence of right ventricular strain or any signs of pulmonary hypertension Current Visit: Yes Status: Acute Code(s): I26.99 - OTHER PULMONARY EMBOLISM WITHOUT ACUTE COR PULMONALE SNOMED Code(s): 82450308 (2) Type 2 diabetes mellitus Narrative/Plan: * Blood sugars currently are stable A1c is pending continue Accu-Cheks with correctional scale insulin * Current Visit: Yes Status: Acute Code(s): E11.9 - TYPE 2 DIABETES MELLITUS WITHOUT COMPLICATIONS SNOMED Code(s): 07156112 (3) Hyperlipidemia Current Visit: Yes Status: Acute Code(s): E78.5 - HYPERLIPIDEMIA, UNSPECIFIED SNOMED Code(s): 87565532 (4) GERD (gastroesophageal reflux disease) Narrative/Plan: * Continue PPI therapy Current Visit: No Status: Acute Code(s): K21.9 - GASTRO-ESOPHAGEAL REFLUX DISEASE WITHOUT ESOPHAGITIS SNOMED Code(s): 475947178 (5) Chest pain Narrative/Plan: * Likely secondary to acute PE * Cardiac enzymes have been negative, and EKG nonspecific any acute ischemia * Appreciate cardiology recommendations Current Visit: Yes Status: Acute Code(s): R07.9 - CHEST PAIN, UNSPECIFIED SNOMED Code(s): 64901859
[2017-10-21 16:14] LABS: Hemoglobin A1C 6.6 % (4.0-6.0)
--- NOTE | 2017-10-21 16:45 | P.CNPUL ---
<Genesis Moya M - Last Filed: 10/21/17 16:11> History of Present Illness Consult date: 10/21/17 Requesting physician: Reza Lubin Reason for consult: dyspnea, chest pain, pulmonary embolism Chief complaint: Shortness of breath, chest pain, acute pulmonary embolism History of present illness: Mr. Sanders is a 72-year-old white male patient of Dr. Boggs, who presented to the emergency department on October at 1305 with complaints of 2 week history of increasing shortness of breath on exertion, chest pain, the patient describes as dull substernal left-sided pressure, at times becomes sharp. Denied any radiation to the shoulder, back or jaw. Denied any nausea or vomiting. Denied any diaphoresis. Patient does have underlying history of CAD, asthma, diabetes mellitus, GERD, dyslipidemia, hypertension and a history of pulmonary embolism in 1971. Patient has a remote history of smoking, quit 40 years ago, smoked for approximately 18 years. Patient is generally very active on a regular basis, he works out 3 times a week at the gym, on the treadmill for about an hour. But lately he has not been able to exercise for more than 20 minutes as of increasing chest tightness and shortness of breath. The pain would subside cessation of physical activity. At rest he appears to be comfortable, but with ambulation his symptoms return, and he becomes lightheaded and starts having palpitations and nausea. Twelve-lead EKG revealed sinus bradycardia with a rate of [address] abnormalities. Chest x-ray was negative for any acute cardiopulmonary process. Echocardiogram was obtained and showed ventricular systolic function with EF between 55 and 60%, trace mitral, aortic, tricuspid regurgitation, no evidence of aortic stenosis. No evidence of pulmonary hypertension, right ventricular systolic pressure is normal at less than 35 mmHg. Serial cardiac enzymes and troponins were negative 3, proBNP was within normal limits at 87. There was no evidence of leukocytosis, hemoglobin stable at 13.3. D-dimer was found to be elevated at 3.66. Patient denies having any recent surgery, other than the EGD on 09/30/2017 which showed small sliding hiatal hernia and mild antral gastritis. Biopsies obtained from the duodenum, antrum and esophagitis were negative for histopathologic changes Denied calf tenderness or increase in circumference. Denied history of immobility, or known history of clotting disorders or malignancy. CTA chest from 10/21/2017 showed abnormal increased density, filling defects within the right pulmonary artery, segmental branches to both lower lobes, right middle lobe as well as segmental upper lobe, consistent with acute pulmonary embolism. Patient was started on heparin drip, which was later discontinued, and patient is being initiated on oral Eliquis. Patient is afebrile, on 2 L per nasal cannula his O2 sat at 97%, dynamically stable, although still complains of exertional chest pain, dizziness and lightheadedness. Review of Systems All systems: negative Constitutional: Denies chills, Denies fever Eyes: denies blurred vision, denies pain Ears, nose, mouth and throat: Denies headache, Denies sore throat Cardiovascular: Reports decreased exercise tolerance, Reports dyspnea on exertion, Reports lightheadedness, Reports palpitations, Denies chest pain, Denies shortness of breath Respiratory: Reports dyspnea, Denies cough Gastrointestinal: Denies abdominal pain, Denies diarrhea, Denies nausea, Denies vomiting Musculoskeletal: Denies myalgias Integumentary: Denies pruritus, Denies rash Neurological: Denies numbness, Denies weakness Psychiatric: Denies anxiety, Denies depression Endocrine: Denies fatigue, Denies weight change Past Medical History Past Medical History: Asthma, Diabetes Mellitus, GERD/Reflux, Hyperlipidemia, Hypertension, Pulmonary Embolus (PE) Additional Past Medical History / Comment(s): PE 1972, diff and pain with swallowing, History of Any Multi-Drug Resistant Organisms: None Reported Past Surgical History: Appendectomy, Cholecystectomy, Heart Catheterization, Tonsillectomy Past Anesthesia/Blood Transfusion Reactions: Motion Sickness Past Psychological History: Anxiety, Depression Smoking Status: Former smoker - Past Family History Mother Family Medical History: No Reported History Medications and Allergies Home Medications Medication Instructions Recorded Confirmed Type Atorvastatin [Lipitor] 10 mg PO DAILY 06/15/14 10/20/17 History Ascorbic Acid [Vitamin C] 500 mg PO DAILY 06/25/16 10/20/17 History DULoxetine HCL [Cymbalta] 60 mg PO DAILY 06/25/16 10/20/17 History LORazepam [Lorazepam] 0.5 mg PO HS 06/25/16 10/20/17 History Lisinopril [Zestril] 5 mg PO HS 06/25/16 10/20/17 History Multivitamins, Thera [Multivitamin 1 tab PO DAILY 06/25/16 10/20/17 History (formulary)] Omeprazole 40 mg PO BID 06/25/16 10/20/17 History Zinc 50 mg PO DAILY 06/25/16 10/20/17 History Fluticasone/Salmeterol [Advair Hfa 2 puff INHALATION RT-BID PRN 09/29/17 History 230-21 Mcg Inhaler] glipiZIDE [Glucotrol] 5 mg PO DAILY 09/29/17 10/20/17 History Apixaban [Eliquis] 10 mg PO BID 30 Days #60 tab 10/22/17 Rx Aspirin EC [Ecotrin Low Dose] 81 mg PO DAILY #30 tablet. 10/22/17 Rx Allergies Allergy/AdvReac Type Severity Reaction Status Date / Time No Known Allergies Allergy Verified 10/20/17 13:46 Physical Exam Vitals: Vital Signs Temp Pulse Pulse Resp BP Pulse Ox 10/21/17 15:54 56 L 59 L 17 10/21/17 15:33 98.4 F 59 L 17 125/67 97 10/21/17 12:00 56 L 61 18 10/21/17 11:41 98.1 F 61 18 137/70 94 L 10/21/17 08:00 56 L 56 L 18 10/21/17 07:45 97.3 F L 56 L 18 140/77 95 10/21/17 04:00 18 10/21/17 03:54 97.6 F 61 18 138/69 100 10/21/17 00:00 18 10/20/17 23:42 62 18 136/65 94 L 10/20/17 20:00 18 10/20/17 19:42 98.2 F 56 L 18 154/80 94 L Intake and Output 10/21/17 10/21/17 10/21/17 06:59 14:59 22:59 Intake Total 186.41 240 Balance 186.41 240 Intake: Intake, IV Titration 186.41 Amount Heparin Sod,Pork in 0.45% 186.41 NaCl 25,000 unit In 0.45 % NaCl 1 500ml.bag @ 9.2 UNITS/KG/HR 20.03 mls/hr IV .Q24H [facility] Rx#: [id number] Oral 240 Other: Voiding Method Toilet Toilet # Voids 1 3 GENERAL EXAM: Alert, pleasant, 72-year-old white male comfortable in no apparent distress. HEAD: Normocephalic/atraumatic. EYES: Normal reaction of pupils, equal size. Conjunctiva pink, sclera white. NOSE: Clear with pink turbinates. THROAT: No erythema or exudates. NECK: No masses, no JVD, no thyroid enlargement, no adenopathy. CHEST: No chest wall deformity. Symmetrical expansion. LUNGS: Equal air entry with no crackles, wheeze, rhonchi or dullness. CVS: Regular rate and rhythm, distant S1 and S2, no gallops, no murmurs, no rubs ABDOMEN: Soft, nontender. No hepatosplenomegaly, normal bowel sounds, no guarding or rigidity. EXTREMITIES: No clubbing, no edema, no cyanosis, 2+ pulses and upper and lower extremities. MUSCULOSKELETAL: Muscle strength and tone normal. SPINE: No scoliosis or deformity SKIN: No rashes CENTRAL NERVOUS SYSTEM: Alert and oriented -3. No focal deficits, tone is normal in all 4 extremities. PSYCHIATRIC: Alert and oriented -3. Appropriate affect. Intact judgment and insight. Results - Laboratory Findings CBC and BMP: 10/21/17 02:42 10/20/17 13:14 PT/INR, D-dimer PT 9.8 sec (9.0-12.0) 10/20/17 13:14 INR 1.0 (<1.2) 10/20/17 13:14 D-Dimer 3.66 mg/L FEU (<0.60) H 10/21/17 09:59 Abnormal lab findings: Abnormal Labs 10/20/17 10/20/17 10/20/17 13:14 20:18 20:50 RBC Hct APTT 37.9 H D-Dimer BUN 25 H Glucose 107 H POC Glucose (mg/dL) 120 H 10/21/17 10/21/17 10/21/17 02:42 02:42 06:56 RBC 4.21 L Hct 38.8 L APTT 82.2 H D-Dimer BUN Glucose POC Glucose (mg/dL) 127 H 10/21/17 10/21/17 09:59 12:13 RBC Hct APTT D-Dimer 3.66 H BUN Glucose POC Glucose (mg/dL) 132 H - Diagnostic Findings Chest x-ray: report reviewed CT scan - chest: report reviewed Additional studies: Twelve-lead EKG was reviewed Assessment and Plan Plan: Assessment: #1. Acute pulmonary embolism, unprovoked. CTA chest from 10/21/2017 shows filling defects within the right pulmonary artery, and segmental branches to both right middle lobe and segmental upper lobe branches on the right and left #2. Acute exertional shortness of breath, chest pain, and lightheadedness related to the above #3. Elevated d-dimer related to the acute PE #4. Remote history of pulmonary embolism in 1971 #5. History of bronchial asthma, stable #6. History of obstructive sleep apnea, patient is on BiPAP therapy with pressures of 21/16 cm of water #7. GERD, status post EGD in September 2017, findings positive for small hiatal hernia, and antral gastritis, duodenum, esophagus, and antral biopsies were negative for histopathologic changes #8. Remote history of smoking, quit 40 years ago, smoked for 18 years #9. History of concussion injury of brain #10. Benign prostatic hyperplasia #11. Diabetes mellitus #12. Hyperlipidemia Plan: We will obtain Doppler of bilateral lower extremities to rule out DVTs. Continue Eliquis. Continue nebulized treatments, Symbicort, patient's asthma is stable. Patient is having ongoing exertional dyspnea, chest pain and lightheadedness. Monitor vital signs, oxygenation. His vital signs remain stable, recommend to continue observing him overnight. 2-D echocardiogram was reviewed, no evidence of right ventricular strain at this time. I performed a history & physical examination of the patient and discussed their management with my nurse practitioner, Genesis Moya. I reviewed the nurse practitioner's note and agree with the documented findings and plan of care. Lung sounds are clear. The findings and the impression was discussed with the patient. I attest to the documentation by the nurse practitioner. Time with Patient: Greater than 30 <Nathalia Pinedo - Last Filed: 10/22/17 16:52> Physical Exam Vitals: Vital Signs Temp Pulse Resp BP Pulse Ox 10/22/17 11:41 97.9 F 58 L 18 131/75 95 10/22/17 07:48 59 L 18 10/22/17 07:45 97.7 F 59 L 18 133/72 98 10/22/17 04:00 97.0 F L 56 L 18 156/73 98 10/22/17 00:00 97.3 F L 61 18 119/75 97 10/21/17 20:00 96.2 F L 55 L 18 137/68 94 L 10/21/17 18:05 67 18 146/75 97 Intake and Output 10/22/17 10/22/17 10/22/17 06:59 14:59 22:59 Intake Total 400 Output Total 1350 Balance -1350 400 Intake: Oral 400 Output: Urine 1350 Other: Voiding Method Toilet # Voids 2 Weight 107.8 kg Results - Laboratory Findings CBC and BMP: 10/22/17 05:52 10/22/17 05:52 PT/INR, D-dimer PT 9.8 sec (9.0-12.0) 10/20/17 13:14 INR 1.0 (<1.2) 10/20/17 13:14 D-Dimer 3.66 mg/L FEU (<0.60) H 10/21/17 09:59 Abnormal lab findings: Abnormal Labs 10/20/17 10/20/17 10/20/17 13:14 20:18 20:50 RBC Hct APTT 37.9 H D-Dimer Carbon Dioxide BUN 25 H Glucose 107 H POC Glucose (mg/dL) 120 H Hemoglobin A1c 10/21/17 10/21/17 10/21/17 02:32 02:42 02:42 RBC 4.21 L Hct 38.8 L APTT 82.2 H D-Dimer Carbon Dioxide BUN Glucose POC Glucose (mg/dL) Hemoglobin A1c 6.6 H 10/21/17 10/21/17 10/21/17 06:56 09:59 12:13 RBC Hct APTT D-Dimer 3.66 H Carbon Dioxide BUN Glucose POC Glucose (mg/dL) 127 H 132 H Hemoglobin A1c 10/21/17 10/21/17 10/22/17 18:12 21:07 05:52 RBC Hct APTT D-Dimer Carbon Dioxide 31 H BUN Glucose 128 H POC Glucose (mg/dL) 175 H 160 H Hemoglobin A1c 10/22/17 06:01 RBC Hct APTT D-Dimer Carbon Dioxide BUN Glucose POC Glucose (mg/dL) 126 H Hemoglobin A1c Assessment and Plan Plan: This is a joint evaluation that was done along with the nurse practitioner. The patient was interviewed. CAT scan of the chest was noted. A large pulmonary embolism within the right pulmonary artery and addition to a smaller clots on the left. The patient is symptomatic despite the clot burden. He is not having any significant hypoxemia or respiratory distress. Pulse ox is above 90% on room air. No hypotension. He is currently on oral anticoagulation with Eliquis. The patient also has a remote history of a pulmonary embolism back in 1971 and as such he may need long-term anticoagulation based on the recurrent nature and the unprovoked nature of these events. He is already taken anticoagulants. No complaints for now. Doppler of the lower extremities been negative. Echocardiogram shows no RV dysfunction. We'll seen in the office in follow-up. He has obstructive sleep apnea and is currently on BiPAP treatment. He is an ex-smoker.
[2017-10-21] MEDS: SODIUM CHLORIDE 0.9% 1,000 ML IV SCH (17:41)
[2017-10-21 18:09] VITALS: RESP 18
[2017-10-21] MEDS ORDERED: INSULIN ASPART 100 UNIT/ML 1 ML 10 ML VIAL SQ ONE (18:21)
--- NOTE | 2017-10-21 18:26 | US ---
EXAMINATION TYPE: US venous doppler duplex LE DATE OF EXAM: 10/21/2017 4:40 PM COMPARISON: NONE CLINICAL HISTORY: pulmonary embolism. SIDE PERFORMED: TECHNIQUE: The lower extremity deep venous system is examined utilizing real time linear array sonog trevin with graded compression, doppler sonography and color-flow sonography. VESSELS IMAGED: External Iliac Vein (EIV) Common Femoral Vein Deep Femoral Vein Greater Saphenous Vein * Femoral Vein Popliteal Vein Small Saphenous Vein * Proximal Calf Veins (* superficial vessels) FINDINGS: Grayscale, color doppler, spectral doppler imaging performed of the deep veins of the lowe r extremities. There is normal flow, compressibility, vascular waveforms. IMPRESSION: 1. NEGATIVE FOR DVT, RIGHT LOWER EXTREMITY. 2. NEGATIVE FOR DVT, LEFT LOWER EXTREMITY.
[2017-10-21 18:33] LABS: Glucose,Whole Blood 175 mg/dL (75-99)
[2017-10-21] MEDS: LORazepam 0.5 MG TAB PO SCH (20:22)
[2017-10-21] MEDS: LISINOPRIL 5 MG TAB PO SCH (20:22)
[2017-10-21 21:09] LABS: Glucose,Whole Blood 160 mg/dL (75-99)
[2017-10-21] MEDS: INSULIN ASPART 100 UNIT/ML 1 ML 10 ML VIAL SQ SCH (22:18)
[2017-10-22 06:06] LABS: Glucose,Whole Blood 126 mg/dL (75-99)
[2017-10-22] MEDS: INSULIN ASPART 100 UNIT/ML 1 ML 10 ML VIAL SQ SCH ×2 (06:12→11:46)
[2017-10-22] MEDS: PANTOPRAZOLE 40 MG TABLET PO SCH (06:13)
[2017-10-22 06:28] LABS: Basophils % (A) 0 %; Eosinophils # (A) 0.2 k/uL (0-0.7); Eosinophils % (A) 4 %; HCT 41.5 % (39.0-53.0); HGB 14.1 gm/dL (13.0-17.5); Lymphocytes # (A) 1.5 k/uL (1.0-4.8); Lymphocytes % (A) 26 %; MCH 30.9 pg (25.0-35.0); MCV 90.8 fL (80.0-100.0); Mean Platelet Volume 7.6; Monocytes # (A) 0.4 k/uL (0-1.0); Monocytes % (A) 7 %; Neutrophils # (A) 3.5 k/uL (1.3-7.7); Neutrophils % (A) 61 %; Platelet Count 202 k/uL (150-450); RBC 4.57 m/uL (4.30-5.90); RDW 13.2 % (11.5-15.5); WBC 5.7 k/uL (3.8-10.6)
[2017-10-22 07:00] LABS: Calcium 9.8 mg/dL (8.4-10.2); Potassium 4.7 mmol/L (3.5-5.1)
[2017-10-22] MEDS: APIXABAN 5 MG TAB PO SCH (07:39)
[2017-10-22] MEDS: DULoxetine HCL 60 MG CAPSULE.DR PO SCH (07:39)
[2017-10-22] MEDS ORDERED: ATORVASTATIN 10 MG TAB PO SCH (09:00)
[2017-10-22] MEDS ORDERED: ASPIRIN 81 MG PO SCH (09:00)
[2017-10-22] MEDS ORDERED: LISINOPRIL 5 MG TAB PO ONE (10:00)
--- NOTE | 2017-10-22 11:05 | P.PN ---
Progress Note - Text Patient has been diagnosed with RVR and was him. Dilated aortic root noted. From a cardiac standpoint hypertension management and statin therapy and follow- up with Dr. Subramanian Pulmonary and was and management per primary team and pulmonology Please call as needed See full dictation by nurse practitioner
[2017-10-22 11:41] VITALS: BP 131/75; PULSE 58; TEMP 97.9
[2017-10-22] MEDS: SODIUM CHLORIDE 0.9% 1,000 ML IV SCH (11:46)
[2017-10-22 11:47] LABS: Glucose,Whole Blood 99 mg/dL (75-99)
--- NOTE | 2017-10-22 12:18 | P.PN ---
Subjective Progress Note Date: 10/22/17 This is a pleasant 72-year-old gentleman with history of diabetes, hyperlipidemia, hypertension, prior PE in 1971, asthma, GERD, who presented to the hospital with symptoms of shortness of breath and chest discomfort. He was seen in consultation by Dr. Subramanian yesterday. A d-dimer was requested which came back to be abnormal, therefore a CT of the chest was performed which was positive for pulmonary embolism. Patient was initiated on Eliquis per PE protocol. He was seen and examined this morning, denies any current chest pain or difficulty in breathing. Blood pressure 130/70 with a heart rate in the 50s. Echocardiogram with Doppler study was performed which revealed an ejection fraction of 55-60%. RVSP normal. Objective - Vital Signs Vital signs: Vital Signs Temp 97.9 F 10/22/17 11:41 Pulse 58 L 10/22/17 11:41 Resp 18 10/22/17 11:41 BP 131/75 10/22/17 11:41 Pulse Ox 95 10/22/17 11:41 Intake & Output 10/21/17 10/22/17 10/22/17 18:59 06:59 18:59 Intake Total 240 180 Output Total 1350 Balance 240 -1350 180 Weight 107.8 kg Intake: Oral 240 180 Output: Urine 1350 Other: Voiding Method Toilet Toilet # Voids 3 - Exam GENERAL EXAM: Alert, pleasant, 72-year-old white male comfortable in no apparent distress. HEAD: Normocephalic/atraumatic. EYES: Normal reaction of pupils, equal size. Conjunctiva pink, sclera white. NOSE: Clear with pink turbinates. THROAT: No erythema or exudates. NECK: No masses, no JVD, no thyroid enlargement, no adenopathy. CHEST: No chest wall deformity. Symmetrical expansion. LUNGS: Equal air entry with no crackles, wheeze, rhonchi or dullness. CVS: Regular rate and rhythm, distant S1 and S2, no gallops, no murmurs, no rubs ABDOMEN: Soft, nontender. No hepatosplenomegaly, normal bowel sounds, no guarding or rigidity. EXTREMITIES: No clubbing, no edema, no cyanosis, 2+ pulses and upper and lower extremities. MUSCULOSKELETAL: Muscle strength and tone normal. SPINE: No scoliosis or deformity SKIN: No rashes CENTRAL NERVOUS SYSTEM: Alert and oriented -3. No focal deficits, tone is normal in all 4 extremities. PSYCHIATRIC: Alert and oriented -3. Appropriate affect. Intact judgment and insight. - Labs CBC & Chem 7: 10/22/17 05:52 10/22/17 05:52 Labs: Abnormal Lab Results - Last 24 Hours (Table) 10/21/17 10/21/17 10/21/17 Range/Units 02:32 12:13 18:12 Carbon Dioxide (22-30) mmol/L Glucose (74-99) mg/dL POC Glucose (mg/dL) 132 H 175 H (75-99) mg/dL Hemoglobin A1c 6.6 H (4.0-6.0) % 10/21/17 10/22/17 10/22/17 Range/Units 21:07 05:52 06:01 Carbon Dioxide 31 H (22-30) mmol/L Glucose 128 H (74-99) mg/dL POC Glucose (mg/dL) 160 H 126 H (75-99) mg/dL Hemoglobin A1c (4.0-6.0) % Assessment and Plan Plan: Assessment: #1. Acute pulmonary embolism. CTA chest from 10/21/2017 shows filling defects within the right pulmonary artery, and segmental branches to both right middle lobe and segmental upper lobe branches on the right and left. Consult with Dr. Joe requested #2. Acute exertional shortness of breath, chest pain, and lightheadedness related to the above #3. Elevated d-dimer related to the acute PE #4. Remote history of pulmonary embolism in 1971 #5. History of bronchial asthma, stable #6. History of obstructive sleep apnea, patient is on BiPAP therapy #7. GERD, status post EGD in September 2017, findings positive for small hiatal hernia, and antral gastritis, duodenum, esophagus, and antral biopsies were negative for histopathologic changes #8. Remote history of smoking, quit 40 years ago, smoked for 18 years #9. History of concussion injury of brain #10. Benign prostatic hyperplasia #11. Diabetes mellitus #12. Hyperlipidemia #13 hypertension Plan From cardiology's perspective, echocardiogram with Doppler study has been reviewed. We will follow this patient along with you now on an as-needed basis only, please don't hesitate to call with any questions. DNP note has been reviewed, I agree with a documented findings and plan of care. Patient was seen and examined.
--- NOTE | 2017-10-22 14:40 | P.DS ---
Providers Date of admission: 10/21/17 15:13 Expected date of discharge: 10/22/17 Attending physician: Reza Lubin MD Consults: 10/20/17 14:49 Consult Physician Urgent Consulting Provider: Trey Saul Consult Reason/Comments: UA Do you want consulting provider notified?: Yes 10/21/17 13:42 Consult Physician Urgent Consulting Provider: Nathalia Pinedo Consult Reason/Comments: PE Do you want consulting provider notified?: Yes 10/22/17 07:36 Consult Physician Urgent Consulting Provider: Alberto Joe Consult Reason/Comments: ? Unprovoked PE; Duration of anticoagulation & workup as outpatient Do you want consulting provider notified?: Yes Primary care physician: [facility] Course: 72-year-old male with a past medical history of type 2 diabetes essential hypertension and dyslipidemia presented to the ER with chief complaint of chest pain. He was having exertional chest pain relieved by rest and increasing exercise intolerance for 3 weeks. His most recent episode occurred while walking upstairs returning from the mailbox where he had midsternal chest pain associated with shortness of breath and relieved by rest, the episode lasted approximately 90 minutes, without any associated diaphoresis , nausea or vomiting. The patient reported poor tolerance to exercise for 3 weeks. He has a treadmill at home and he noticed that he is tolerating less time on the treadmill and was having some fear associated with going back on it. In the ER he had a EKG CBC chest x-ray, cardiac enzymes that were negative for suggestion of acute coronary ischemia, his EKG showed sinus bradycardia. He had a CT angiogram of the chest and that showed multiple pulmonary emboli, was started on a heparin drip and then later he was switched to apixiban by mouth. He had bilateral lower extremity Doppler ultrasound that was negative for DVT. He also had an echocardiogram that did not show any evidence of RV strain or significant valvular abnormalities. He was evaluated by cardiology and pulmonary service who agreed with the above management. On the day of discharge patient was evaluated with walking saturations test and he did not drop O2 sats with walking. Patient was instructed to follow-up with his primary care physician upon discharge. Patient will be discharged home in a stable condition. Time for discharge 35 minutes Patient Condition at Discharge: Stable Plan - Discharge Summary Discharge Rx Participant: Yes New Discharge Prescriptions: New Apixaban [Eliquis] 10 mg PO BID 30 Days #60 tab Continue Atorvastatin [Lipitor] 10 mg PO DAILY Zinc 50 mg PO DAILY Multivitamins, Thera [Multivitamin (formulary)] 1 tab PO DAILY Ascorbic Acid [Vitamin C] 500 mg PO DAILY Omeprazole 40 mg PO BID Lisinopril [Zestril] 5 mg PO HS DULoxetine HCL [Cymbalta] 60 mg PO DAILY LORazepam [Lorazepam] 0.5 mg PO HS glipiZIDE [Glucotrol] 5 mg PO DAILY Fluticasone/Salmeterol [Advair Hfa 230-21 Mcg Inhaler] 2 puff INHALATION RT- BID PRN PRN Reason: Shortness Of Breath Aspirin EC [Ecotrin] 325 mg PO DAILY Discharge Medication List Atorvastatin [Lipitor] 10 mg PO DAILY 06/15/14 [History] Ascorbic Acid [Vitamin C] 500 mg PO DAILY 06/25/16 [History] DULoxetine HCL [Cymbalta] 60 mg PO DAILY 06/25/16 [History] LORazepam [Lorazepam] 0.5 mg PO HS 06/25/16 [History] Lisinopril [Zestril] 5 mg PO HS 06/25/16 [History] Multivitamins, Thera [Multivitamin (formulary)] 1 tab PO DAILY 06/25/16 [History ] Omeprazole 40 mg PO BID 06/25/16 [History] Zinc 50 mg PO DAILY 06/25/16 [History] Fluticasone/Salmeterol [Advair Hfa 230-21 Mcg Inhaler] 2 puff INHALATION RT-BID PRN 09/29/17 [History] glipiZIDE [Glucotrol] 5 mg PO DAILY 09/29/17 [History] Aspirin EC [Ecotrin] 325 mg PO DAILY 10/20/17 [History] Apixaban [Eliquis] 10 mg PO BID 30 Days #60 tab 10/22/17 [Rx] Follow up Appointment(s)/Referral(s): Misha Mayfield MD [Primary Care Provider] - 10/27/17 10:30 am Nathalia Pinedo MD [STAFF PHYSICIAN] - 11/07/17 2:00 pm Patient Instructions/Handouts: Pulmonary Embolism (DC), Safe Use of Anticoagulants (DC) Activity/Diet/Wound Care/Special Instructions: Pt susi copay is $45
[2017-10-22] MEDS ORDERED: LISINOPRIL 10 MG TAB PO SCH (21:00)
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
[2017-10-23] MEDS ORDERED: ATORVASTATIN 20 MG TAB PO SCH (09:00)
== END 2017-10-22 15:25 | disposition home or self-care (01) | DRG 176 ==
LOC: EC 13:05 → 3OBS 14:48 → OBSVTOIN 10-21 15:13 → 6SEL 10-21 17:25
PROVIDERS: ADMIT Family Medicine; ATTEND Family Medicine
DX: I26.99 Other pulmonary embolism without acute cor pulmonale (principal); I25.110 Atherosclerotic heart disease of native coronary artery with unstable angina pectoris; E11.9 Type 2 diabetes mellitus without complications; I44.4 Left anterior fascicular block; G47.33 Obstructive sleep apnea (adult) (pediatric); K44.9 Diaphragmatic hernia without obstruction or gangrene; N40.0 Benign prostatic hyperplasia without lower urinary tract symptoms; I77.819 Aortic ectasia, unspecified site; E78.5 Hyperlipidemia, unspecified; K21.9 Gastro-esophageal reflux disease without esophagitis; I10 Essential (primary) hypertension; J45.909 Unspecified asthma, uncomplicated; F32.9 Major depressive disorder, single episode, unspecified; F41.9 Anxiety disorder, unspecified; Z79.84 Long term (current) use of oral hypoglycemic drugs; Z79.82 Long term (current) use of aspirin; Z79.51 Long term (current) use of inhaled steroids; Z79.899 Other long term (current) drug therapy; Z87.820 Personal history of traumatic brain injury; Z90.49 Acquired absence of other specified parts of digestive tract; Z87.891 Personal history of nicotine dependence; K29.60 Other gastritis without bleeding
CPT/HCPCS: 36415; 71046; 71275; 80048; 80053; 80061; 82550; 82553; 83036; 83735; 83880; 84484; 85025; 85379; 85610; 85730; 93005; 93306; 93970; 96374; 99291

== ENCOUNTER → 2017-10-30 | Outpatient (CLI) | payer MEDICARE, BC ==
--- NOTE | 2017-10-30 19:18 | CT ---
EXAMINATION TYPE: CT abdomen pelvis w con DATE OF EXAM: 10/30/2017 COMPARISON: 06/27/2016 HISTORY: Nausea, Recent PE diagnosis CT DLP: 1952 mGycm Automated exposure control for dose reduction was used. TECHNIQUE: Helical acquisition of images was performed from the lung bases through the pelvis. CONTRAST: Performed with Oral Contrast and with IV Contrast, patient injected with 100 mL of Omnipaque 300. FINDINGS: There are filling defects in the right lower lobe pulmonary artery related to pulmonary embolism. The re is mild reticular interstitial density at the lung bases. There is no pleural effusion. There is n o pericardial effusion. Liver and spleen appear normal. Bile ducts are not dilated. There are clips from cholecystectomy. The re is no sign of pancreatic mass. There is no adrenal mass. Kidneys show satisfactory contrast opacification. There is no hydronephrosi s. There are right renal cortical cysts that measure up to 1.5 cm. There is no hydronephrosis. Ureter s are not dilated. There is no retroperitoneal adenopathy. I see no intestinal wall thickening. There are no dilated loops. Appendix is not seen. There is no sign of appendicitis. There is no sign of fr ee air. There is no ascites. There is 20% anterior wedging of L1 vertebra. Prostate is enlarged. IMPRESSION: MINIMAL SCARRING OR SUBSEGMENTAL ATELECTASIS AT THE POSTERIOR LUNG BASES. RIGHT LOWER LOBE PULMONARY EMBOLISM. OLD L1 COMPRESSION FRACTURE. SMALL RENAL CORTICAL CYSTS. NO SIGN OF ACUTE ABDOMEN AND PELVI S. NO ADVERSE CHANGE COMPARED TO OLD EXAM.
== END | disposition home or self-care (01) ==
LOC: RADCTMAIN 14:12
PROVIDERS: ATTEND Internal Medicine
DX: N28.1 Cyst of kidney, acquired (principal)
CPT/HCPCS: 82565; 84520; 74177; 36415; Q9967

== ENCOUNTER 2018-01-14 13:56 | Inpatient (IN) | payer MEDICARE, BC ==
[2018-01-14] MEDS ORDERED: DILTIAZEM 5 MG/1 ML (25ML VIAL) IV STA (14:50)
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
[2018-01-14 14:54] LABS: Basophils % (A) 0 %; Eosinophils # (A) 0.1 k/uL (0-0.7); Eosinophils % (A) 2 %; HCT 38.7 % (39.0-53.0); HGB 13.2 gm/dL (13.0-17.5); Lymphocytes # (A) 1.6 k/uL (1.0-4.8); Lymphocytes % (A) 25 %; MCH 31.3 pg (25.0-35.0); MCHC 34.2 g/dL (31.0-37.0); MCV 91.6 fL (80.0-100.0); Mean Platelet Volume 8.1; Monocytes # (A) 0.3 k/uL (0-1.0); Monocytes % (A) 5 %; Neutrophils # (A) 4.2 k/uL (1.3-7.7); Neutrophils % (A) 66 %; Platelet Count 199 k/uL (150-450); RBC 4.22 m/uL (4.30-5.90); RDW 12.9 % (11.5-15.5); WBC 6.4 k/uL (3.8-10.6)
[2018-01-14 15:02] LABS: Partial Thromboplastin Time 23.5 sec (22.0-30.0); Prothrombin Time 10.2 sec (9.0-12.0)
[2018-01-14 15:14] LABS: Creatine Kinase 75 U/L (55-170)
[2018-01-14] MEDS ORDERED: DILTIAZEM 50 MG in SODIUM CHLORIDE 0.9% 40 ML IV ONE (15:15)
[2018-01-14 15:16] LABS: Albumin 3.7 g/dL (3.5-5.0); Calcium 9.2 mg/dL (8.4-10.2); Magnesium 1.6 mg/dL (1.6-2.3); Potassium 4.2 mmol/L (3.5-5.1); Total Bilirubin 1.5 mg/dL (0.2-1.3); Total Protein 6.2 g/dL (6.3-8.2)
--- NOTE | 2018-01-14 15:18 | XR ---
EXAMINATION TYPE: XR chest 2V DATE OF EXAM: 01/14/2018 COMPARISON: 10/20/2017 INDICATION: Chest pain TECHNIQUE: Frontal and lateral views of the chest are obtained. FINDINGS: The heart size is normal. The pulmonary vasculature is normal. There is stable right apical thickening. No suspicious consolidations are evident. IMPRESSION: 1. No acute pulmonary process.
[2018-01-14 15:27] LABS: Creatine Kinase MB 1.1 ng/mL (0.0-2.4); Troponin I <0.012 ng/mL (0.000-0.034)
[2018-01-14] MEDS ORDERED: MORPHINE SULFATE 2 MG/ML SYRINGE IV PRN (16:37)
[2018-01-14] MEDS ORDERED: NALOXONE 0.4 MG/ML 1 ML VIAL IV PRN ×2 (16:37→17:13)
[2018-01-14] MEDS ORDERED: ACETAMINOPHEN TAB 325 MG TAB PO PRN (17:13)
[2018-01-14] MEDS ORDERED: MELATONIN 3 MG TABLET PO PRN (17:13)
[2018-01-14] MEDS ORDERED: HYDROcodone/APAP 5-325MG 1 EACH TAB PO PRN (17:13)
[2018-01-14] MEDS ORDERED: ONDANSETRON 4 MG/2 ML VIAL IVP PRN (17:13)
[2018-01-14] MEDS ORDERED: SYMBICORT 160-4.5 MCG INHALER INHALATION PRN (17:16)
--- NOTE | 2018-01-14 17:19 | P.HPIM ---
History of Present Illness H&P Date: 01/14/18 Chief Complaint: chest pain Patient is a 72-year-old male past medical history of hypertension, dyslipidemia, diabetes mellitus type 2, and recent pulmonary embolism in October 2017 who presented to the emergency department with complaints of chest pain. In the ER he underwent an extensive evaluation. On arrival he was found to be in A. fib with RVR. An EKG was done immediately which revealed a ventricular rate of 122 and T-wave depression. He was started on a diltiazem drip and by 2 hours later he converted to normal sinus rhythm. Initial laboratory analysis was essentially unremarkable. Chest x-ray showed no acute process. Initial troponin was negative. Patient had no history of atrial fibrillation and arrangements are made for admission. Patient seen and examined at bedside in the emergency department. He states that he walks up a flight of stairs in between noon and 1 today and had sudden onset chest pain. Chest pain was retrosternal without radiation. It was associated with a racing heart and feeling like his heart was in a come out of his chest. He had shortness of breath and felt like he was going to pass out. He also developed blurry vision, nausea, and diaphoresis. He did not have a headache or numbness and tingling. The feeling lasted until he came here and was put on the Cardizem. He has been in his normal state of health other than a recent cough and runny nose. He has not started or stopped any medications recently. He has not missed any doses of eliquis His baggageman is DAV Kelly and he sees Dr. Mayfield as his primary care physician. Review of Systems Positives: + Chest pain, + shortness of breath, + presyncope, + blurry vision, + nausea, + diaphoresis, + cough, + runny nose Pertinent positives and negatives as discussed in HPI, a complete review of systems was performed and all other systems are negative. Past Medical History Past Medical History: Asthma, Diabetes Mellitus, GERD/Reflux, Hyperlipidemia, Hypertension, Pulmonary Embolus (PE) Additional Past Medical History / Comment(s): PE 1971 and 2017, diff and pain with swallowing, BPH History of Any Multi-Drug Resistant Organisms: None Reported Past Surgical History: Appendectomy, Cholecystectomy, Heart Catheterization, Tonsillectomy Past Anesthesia/Blood Transfusion Reactions: Motion Sickness Past Psychological History: Anxiety, Depression Smoking Status: Former smoker Past Alcohol Use History: None Reported Past Drug Use History: None Reported Additional History: Lives with his Kendra, no assistive devices - Past Family History Mother Family Medical History: No Reported History, Coronary Artery Disease (CAD) Father Additional Family Medical History / Comment(s): Dementia Medications and Allergies Home Medications Medication Instructions Recorded Confirmed Type Atorvastatin [Lipitor] 10 mg PO DAILY 06/15/14 01/14/18 History Ascorbic Acid [Vitamin C] 500 mg PO DAILY 06/25/16 01/14/18 History DULoxetine HCL [Cymbalta] 60 mg PO DAILY 06/25/16 01/14/18 History LORazepam [Lorazepam] 0.5 mg PO HS 06/25/16 01/14/18 History Multivitamins, Thera [Multivitamin 1 tab PO DAILY 06/25/16 01/14/18 History (formulary)] Zinc 50 mg PO DAILY 06/25/16 01/14/18 History Fluticasone/Salmeterol [Advair Hfa 2 puff INHALATION RT-BID PRN 09/29/17 History 230-21 Mcg Inhaler] Aspirin EC [Ecotrin Low Dose] 81 mg PO DAILY #30 tablet. 10/22/17 01/14/18 Rx Apixaban [Eliquis] 5 mg PO BID 01/14/18 01/14/18 History Gabapentin [Neurontin] 300 mg PO HS 01/14/18 01/14/18 History Lansoprazole [Prevacid] 30 mg PO DAILY 01/14/18 01/14/18 History Lisinopril [Zestril] 10 mg PO HS 01/14/18 01/14/18 History Ranitidine HCl [Zantac] 150 mg PO BID 01/14/18 01/14/18 History Tamsulosin [Flomax] 0.4 mg PO HS 01/14/18 01/14/18 History glipiZIDE XL [Glucotrol Xl] 5 mg PO DAILY 01/14/18 01/14/18 History Allergies Allergy/AdvReac Type Severity Reaction Status Date / Time No Known Allergies Allergy Verified 01/14/18 14:37 Physical Exam Osteopathic Statement: *. No significant issues noted on an osteopathic structural exam other than those noted in the History and Physical/Consult. Vitals: Vital Signs Temp Pulse Resp BP Pulse Ox 01/14/18 16:36 55 L 18 126/75 99 01/14/18 15:45 65 18 108/60 98 01/14/18 15:26 66 18 115/68 99 01/14/18 15:05 109 H 18 130/60 99 01/14/18 14:42 18 01/14/18 14:04 97.8 F 78 18 128/67 97 Intake and Output 01/14/18 01/14/18 01/14/18 06:59 14:59 22:59 Other: Weight 106.594 kg General: non toxic, no distress, appears at stated age, normal weight, obese Derm: no unusual rashes/lesions no unusual ecchymoses, warm, dry Head: atraumatic, normocephalic, symmetric Eyes: EOMI, no lid lag, anicteric sclera, pupils equal round reactive to light ENT: Nose and ears atraumatic, no thrush, no pharyngeal erythema Neck: No thyromegaly, no cervical lymphadenopathy, trachea midline, supple Mouth: no lip lesion, mucus membranes moist Cardiovascular: S1S2 reg, no murmur, positive posterior tibial pulse bilateral, no edema, capillary refill less than 2 seconds Lungs: CTA bilateral, no rhonchi, no rales , no accessory muscle use Abdominal: soft, nontender to palpation, no guarding, no appreciable organomegaly, normal bowel sounds Ext: no gross muscle atrophy, muscle strength 5 out of 5 in all 4 extremities grossly, no contractures, Neuro: CN II-XI grossly intact, light touch intact all 4 extremities, finger to nose within normal limits, Psych: Alert, oriented, appropriate affect Results CBC & Chem 7: 01/14/18 14:30 01/14/18 14:30 Labs: Abnormal Lab Results - Last 24 Hours (Table) 01/14/18 01/14/18 Range/Units 14:30 14:30 RBC 4.22 L (4.30-5.90) m/uL Hct 38.7 L (39.0-53.0) % BUN 22 H (9-20) mg/dL Total Bilirubin 1.5 H (0.2-1.3) mg/dL Total Protein 6.2 L (6.3-8.2) g/dL Comments: Initial EKG is reviewed by myself revealed atrial fibrillation at a rate of 122 , QTC 418, normal axis Repeat EKG is reviewed by myself revealed normal sinus rhythm at a rate of 61. MS 162, QRS 18, QTC 434, normal axis Chest x-ray: report reviewed Thrombosis Risk Factor Assmnt - DVT/VTE Prophylaxis DVT/VTE Prophylaxis: Pharmacologic Prophylaxis ordered Assessment and Plan Assessment: Newly discovered A. fib with RVR, currently in sinus rhythm after initiation of Cardizem drip -Continue Cardizem drip as patient recently converted -Follow vital signs -If patient remains in sinus rhythm consider transitioning to oral Cardizem -Check echocardiogram if cardiology is in agreement -Aspirin, serial troponins, tele -Check TSH and magnesium level -Continue eliquis Chest pain -Likely secondary to above -Serial troponins, aspirin, evaluation of A. fib with RVR -Cardiology consultation Diabetes mellitus type 2 -Hold oral medications -Insulin sliding scale -Hemoglobin A1c in October was 6.6 Hypertension, controlled - resume home lisinopril Dyslipidemia -Cholesterol profile within normal limits October 2017 Recent pulmonary embolism -Continue with eliquis Surrogate decision-maker: CODE STATUS: Full DVT prophylaxis:Kaylin Discussed with: Patient, ED physician Anticipated discharge: 48-[address]: Home A total of 45 minutes was spent on the care of this complex patient more than 50 % of the time was spent in counseling and care coordination.
[2018-01-14] MEDS: INSULIN ASPART 100 UNIT/ML 1 ML 10 ML VIAL SQ SCH ×2 (17:56→21:27)
[2018-01-14] MEDS ORDERED: DILTIAZEM ORAL 30 MG TAB PO STA (18:01)
[2018-01-14] MEDS ORDERED: Magnesium Replacement Protocol 1 EACH MISC MISCELLANE PRN (18:03)
[2018-01-14 18:09] LABS: Glucose,Whole Blood 91 mg/dL (75-99)
[2018-01-14] MEDS: MAGNESIUM SULFATE-D5W PMX 1 GM in DEXTROSE/WATER 1 100ML.BAG IVPB SCH ×2 (18:34→19:43)
[2018-01-14] MEDS: APIXABAN 5 MG TAB PO SCH (19:44)
[2018-01-14] MEDS: FAMOTIDINE 20 MG TAB PO SCH (19:44)
[2018-01-14] MEDS: DILTIAZEM ORAL 30 MG TAB PO SCH (19:45)
[2018-01-14] MEDS ORDERED: LISINOPRIL 10 MG TAB PO SCH (21:00)
[2018-01-14] MEDS ORDERED: TAMSULOSIN 0.4 MG CAP.ER.24H PO SCH (21:00)
[2018-01-14] MEDS ORDERED: LORazepam 0.5 MG TAB PO SCH (21:00)
[2018-01-14 21:08] LABS: Glucose,Whole Blood 189 mg/dL (75-99)
[2018-01-14 21:14] LABS: Creatine Kinase MB 0.9 ng/mL (0.0-2.4); Troponin I 0.016 ng/mL (0.000-0.034)
[2018-01-15 05:10] LABS: Hemoglobin A1C 7.1 % (4.0-6.0)
[2018-01-15 05:47] LABS: HCT 36.7 % (39.0-53.0); HGB 12.3 gm/dL (13.0-17.5); MCH 31.6 pg (25.0-35.0); MCHC 33.6 g/dL (31.0-37.0); Mean Platelet Volume 7.6; Platelet Count 184 k/uL (150-450); RDW 13.1 % (11.5-15.5); WBC 5.3 k/uL (3.8-10.6)
[2018-01-15 05:52] LABS: Glucose,Whole Blood 132 mg/dL (75-99)
[2018-01-15 06:01] LABS: Anion Gap 11 mmol/L; Blood Urea Nitrogen 19 mg/dL (9-20); Carbon Dioxide 25 mmol/L (22-30); Chloride 105 mmol/L (98-107); Creatine Kinase MB 0.8 ng/mL (0.0-2.4); Glucose 164 mg/dL (74-99); Magnesium 2.1 mg/dL (1.6-2.3); Potassium 4.1 mmol/L (3.5-5.1); Sodium 141 mmol/L (137-145); Troponin I 0.014 ng/mL (0.000-0.034)
[2018-01-15] MEDS: INSULIN ASPART 100 UNIT/ML 1 ML 10 ML VIAL SQ SCH ×2 (06:18→12:19)
[2018-01-15] MEDS ORDERED: PANTOPRAZOLE 40 MG TABLET PO SCH (07:30)
[2018-01-15 08:19] VITALS: BP 125/76; PULSE 58; RESP 18; TEMP 97.1
[2018-01-15] MEDS ORDERED: DULoxetine HCL 60 MG CAPSULE.DR PO SCH (09:00)
[2018-01-15] MEDS ORDERED: ZINC SULFATE 220 MG CAP PO SCH (09:00)
[2018-01-15] MEDS ORDERED: ASPIRIN 81 MG PO SCH (09:00)
[2018-01-15] MEDS ORDERED: ATORVASTATIN 10 MG TAB PO SCH (09:00)
[2018-01-15] MEDS ORDERED: MULTIVITAMINS, THERA 1 EACH TAB PO SCH (09:00)
[2018-01-15] MEDS ORDERED: ASCORBIC ACID 500 MG TAB PO SCH (09:00)
[2018-01-15] MEDS ORDERED: MORPHINE ORAL SOLN 10 MG/5 ML CUP PO PRN (10:47)
[2018-01-15 11:45] LABS: Glucose,Whole Blood 132 mg/dL (75-99)
[2018-01-15] MEDS ORDERED: METOPROLOL SUCCINATE (ER) 25 MG TAB.ER.24H PO SCH (12:00)
[2018-01-15] MEDS: APIXABAN 5 MG TAB PO SCH (12:10)
[2018-01-15] MEDS: DILTIAZEM ORAL 30 MG TAB PO SCH (12:12)
[2018-01-15] MEDS: FAMOTIDINE 20 MG TAB PO SCH (12:13)
--- NOTE | 2018-01-15 13:26 | P.DS ---
Providers Date of admission: 01/14/18 16:38 Expected date of discharge: 01/15/18 Attending physician: Bernice Trinidad DO Consults: 01/14/18 16:38 Consult Physician Routine Consulting Provider: Beny Kelly Consult Reason/Comments: A. fib with RVR new-onset, chest pain Do you want consulting provider notified?: Yes Primary care physician: Misha Mayfield - Discharge Diagnosis(es) (1) Atrial fibrillation with RVR Current Visit: Yes Status: Acute (2) Chest pain Current Visit: No Status: Acute (3) HTN (hypertension) Current Visit: Yes Status: Acute (4) History of pulmonary embolism Current Visit: Yes Status: Acute (5) Hyperlipidemia Current Visit: No Status: Acute (6) Type 2 diabetes mellitus Current Visit: No Status: Acute Hospital Course: Patient is a 72-year-old male past medical history of hypertension, dyslipidemia, diabetes mellitus type 2, and recent pulmonary embolism in October 2017 who presented to the emergency department with complaints of chest pain. In the ER he underwent an extensive evaluation. On arrival he was found to be in A. fib with RVR. An EKG was done immediately which revealed a ventricular rate of 122 and T-wave depression. He was started on a diltiazem drip and by 2 hours later he converted to normal sinus rhythm. Initial laboratory analysis was essentially unremarkable. Chest x-ray showed no acute process. Initial troponin was negative. Patient had no history of atrial fibrillation and arrangements were made for admission. He continued to be in normal sinus rhythm. His IV Cardizem was converted to oral after admission. He was seen by cardiology who suggested metoprolol and Rythmol instead of Cardizem. He was already on Eliquis for anticoagulation secondary to recent pulmonary emboli. He was able to maintain normal sinus rhythm off of Cardizem drip. Cardiology reviewed his new echo and did not find any significant abnormalities and cleared him for discharge. He improved faster than anticipated and was determined stable for discharge home. He will follow-up with Dr. Kelly on January 21 for further care. He will also follow-up with Dr. Mayfield. Patient was originally admitted as inpatient, but his condition improved faster than anticipated and he was determined stable for discharge home. Patient seen and examined at bedside. Chest pain improved, no shortness of breath, no lightheadedness, no dizziness, blurry vision resolved. Vital signs reviewed and stable. General: non toxic, no distress, appears at stated age, obese Head: atraumatic, normocephalic, symmetric Eyes: EOMI, no lid lag, anicteric sclera Mouth: no lip lesion, mucus membranes moist Cardiovascular: S1S2 reg, no murmur, positive posterior tibial pulse bilateral, Lungs: CTA bilateral, no rhonchi, no rales , no accessory muscle use Abdominal: soft, nontender to palpation, no guarding, no appreciable organomegaly Ext: no gross muscle atrophy, no edema, no contractures Psych: Alert, oriented, appropriate affect A total of 35 minutes of time were spent preparing this complex discharge summary . Pertinent Studies: CXR- no acute process Procedures: None Patient Condition at Discharge: Stable Plan - Discharge Summary Discharge Rx Participant: No New Discharge Prescriptions: New Metoprolol Succinate (ER) [Toprol XL] 12.5 mg PO DAILY #60 tab.er.24h Propafenone [Rythmol] 150 mg PO BID #60 tab Continue Atorvastatin [Lipitor] 10 mg PO DAILY Zinc 50 mg PO DAILY Multivitamins, Thera [Multivitamin (formulary)] 1 tab PO DAILY Ascorbic Acid [Vitamin C] 500 mg PO DAILY DULoxetine HCL [Cymbalta] 60 mg PO DAILY LORazepam [Lorazepam] 0.5 mg PO HS Fluticasone/Salmeterol [Advair Hfa 230-21 Mcg Inhaler] 2 puff INHALATION RT- BID PRN PRN Reason: Shortness Of Breath Aspirin EC [Ecotrin Low Dose] 81 mg PO DAILY #30 tablet. Lisinopril [Zestril] 10 mg PO HS glipiZIDE XL [Glucotrol XL] 5 mg PO DAILY Apixaban [Eliquis] 5 mg PO BID Lansoprazole [Prevacid] 30 mg PO DAILY Tamsulosin [Flomax] 0.4 mg PO HS Ranitidine HCl [Zantac] 150 mg PO BID Discontinued Gabapentin [Neurontin] 300 mg PO HS Discharge Medication List Atorvastatin [Lipitor] 10 mg PO DAILY 06/15/14 [History] Ascorbic Acid [Vitamin C] 500 mg PO DAILY 06/25/16 [History] DULoxetine HCL [Cymbalta] 60 mg PO DAILY 06/25/16 [History] LORazepam [Lorazepam] 0.5 mg PO HS 06/25/16 [History] Multivitamins, Thera [Multivitamin (formulary)] 1 tab PO DAILY 06/25/16 [History ] Zinc 50 mg PO DAILY 06/25/16 [History] Fluticasone/Salmeterol [Advair Hfa 230-21 Mcg Inhaler] 2 puff INHALATION RT-BID PRN 09/29/17 [History] Aspirin EC [Ecotrin Low Dose] 81 mg PO DAILY #30 tablet.dr 10/22/17 [Rx] Apixaban [Eliquis] 5 mg PO BID 01/14/18 [History] Lansoprazole [Prevacid] 30 mg PO DAILY 01/14/18 [History] Lisinopril [Zestril] 10 mg PO HS 01/14/18 [History] Ranitidine HCl [Zantac] 150 mg PO BID 01/14/18 [History] Tamsulosin [Flomax] 0.4 mg PO HS 01/14/18 [History] glipiZIDE XL [Glucotrol XL] 5 mg PO DAILY 01/14/18 [History] Metoprolol Succinate (ER) [Toprol XL] 12.5 mg PO DAILY #60 tab.er.24h 01/15/18 [ Rx] Propafenone [Rythmol] 150 mg PO BID #60 tab 01/15/18 [Rx] Follow up Appointment(s)/Referral(s): Beny Kelly MD [STAFF PHYSICIAN] - 01/21/18 4:00 pm Misha Mayfield MD [Primary Care Provider] - 01/20/18 11:00 am Patient Instructions/Handouts: A-fib (Atrial Fibrillation) (DC) Activity/Diet/Wound Care/Special Instructions: heart healthy low carb diet Activity as tolerated Continue taking your eliquis Discharge Disposition: HOME SELF-CARE Pending Studies Pending Results: formal echo report
--- NOTE | 2018-01-15 19:54 | ECHOF ---
Referral Reason:a fib MEASUREMENTS -------- HEIGHT: 182.9 cm WEIGHT: 106.6 kg BP: 116/67 RVIDd: 3.3 cm (< 3.3) IVSd: 1.5 cm (0.6 - 1.1) LVIDd: 5.0 cm (3.9 - 5.3) LVPWd: 1.4 cm (0.6 - 1.1) IVSs: 1.9 cm LVIDs: 3.4 cm LVPWs: 1.8 cm LA Diam: 4.1 cm (2.7 - 3.8) LAESV Index (A-L): 29.86 ml/m Ao Diam: 4.3 cm (2.0 - 3.7) AV Cusp: 2.6 cm (1.5 - 2.6) MV EXCURSION: 17.961 mm (> 18.000) MV EF SLOPE: 83 mm/s (70 - 150) EPSS: 0.6 cm MV E Lazaro: 0.80 m/s MV DecT: 271 ms MV A Lazaro: 0.83 m/s MV E/A Ratio: 0.97 RAP: 5.00 mmHg RVSP: 26.20 mmHg FINDINGS -------- Sinus rhythm. This was a technically good study. The left ventricular size is normal. There is moderate concentric left ventricular hypertrophy. O verall left ventricular systolic function is normal with, an EF between 55 - 60 %. The right ventricle is normal in size. LA is midly dilated 29-33ml/m2. The right atrium is normal in size. The aortic valve is trileaflet and appears structurally normal. Trace to mild aortic regurgitation. The mitral valve is normal. Mild tricuspid regurgitation present. Right ventricular systolic pressure is normal at < 35 mmHg. Trace/mild (physiologic) pulmonic regurgitation. The aortic root is dilated measuring 4.3cm. Normal inferior vena cava with normal inspiratory collapse consistent with estimated right atrial pre ssure of 5 mmHg. There is no pericardial effusion. CONCLUSIONS -------- 1. Sinus rhythm. 2. This was a technically good study. 3. The left ventricular size is normal. 4. There is moderate concentric left ventricular hypertrophy. 5. Overall left ventricular systolic function is normal with, an EF between 55 - 60 %. 6. LA is midly dilated 29-33ml/m2. 7. The aortic valve is trileaflet and appears structurally normal. 8. Trace to mild aortic regurgitation. 9. The mitral valve is normal. 10. Mild tricuspid regurgitation present. 11. Right ventricular systolic pressure is normal at < 35 mmHg. 12. Trace/mild (physiologic) pulmonic regurgitation. 13. The aortic root is dilated measuring 4.3cm. 14. Normal inferior vena cava with normal inspiratory collapse consistent with estimated right atrial pressure of 5 mmHg. 15. There is no pericardial effusion. RISK MANAGER: Christina Louis RDCS
[2018-01-15] MEDS ORDERED: PROPAFENONE 150 MG TAB PO SCH (21:00)
--- NOTE | 2018-01-15 22:56 | CONS ---
CONSULTATION Jerry Sanders is a 72-year-old gentleman with a remote history of closed head injury, a recent history of pulmonary embolism which was diagnosed a couple of months ago and patient has been on Eliquis for this. This gentleman apparently came into the hospital complaining of some palpitations, a fluttering sensation and also nondescript tightness in the chest. In view of these symptoms he was evaluated, was found to be in atrial fibrillation with a moderately rapid ventricular rate and then he converted to sinus rhythm with IV Cardizem and he remains in sinus rhythm and appears to be doing well. The patient, based on a previous stress test, does not have any obtain any evidence of coronary artery disease. He is a reasonably active person, has underlying hypertension, hyperlipidemia, a recent diagnosis of pulmonary embolism for which he has been on Eliquis. He has a remote history of closed head injury. At the time of my evaluation, he is asymptomatic, feels well in sinus rhythm, stable and wishes to go home. PAST MEDICAL HISTORY: Bronchial asthma, type 2 diabetes, hypertension, hyperlipidemia, recent diagnosis of pulmonary embolism and normal stress test and unremarkable cardiac cath in the past. MEDICATIONS: Include: 1. Aspirin 81 mg daily. 2. Lisinopril 10 mg daily. 3. Prevacid 30 mg daily. 4. Zantac 150 mg daily. 5. Flomax 0.4 mg daily. 6. Glipizide 5 mg daily. 7. Patient is also on atorvastatin 10 mg daily. 8. Apixaban 5 mg b.i.d. and. 9. Multivitamin. ALLERGIES: None. REVIEW OF SYSTEMS: Unremarkable other than above-mentioned facts. EXAMINATION: Blood pressure is 118/70, pulse rate is 60 per minute, regular. HEENT: Unremarkable. Fundus was not examined by me. Neck is supple. There is no JVD. I do not hear a carotid bruit. Heart reveals S1, S2 heard normally without significant murmur. Lungs are clear. Abdomen is soft, nontender. Lower extremities reveal normal pulses. No edema. Central nervous system is normal. EKG on arrival revealed atrial fib, rapid rate, nonspecific ST-T changes. Rate was in the mid 120s. Repeat EKG later on in the day revealed a sinus mechanism without any acute changes. Nonspecific T-wave inversion is noted in the inferior leads. IMPRESSION: 1. Paroxysmal new onset atrial fibrillation which has converted to sinus rhythm. 2. Hypertension. 3. Type 2 diabetes mellitus. 4. Recent history of pulmonary embolism on glipizide. 5. Remote history of closed head injury. RECOMMENDATIONS: Patient has converted to sinus rhythm and I am recommending we start him on a small dose of Rythmol 150 mg b.i.d. Metoprolol succinate will be 12.5 mg daily and resume his other medications, increase activity and he can be discharged today and I will see him in the office in the next 7-14 days. I discussed my thoughts in detail with the patient and his . Thank you very much for the consult. MMODL / IJN: [id number] /
== END 2018-01-15 13:44 | disposition home or self-care (01) | DRG 310 ==
LOC: EC 13:56 → 6SEL 16:38
PROVIDERS: ADMIT Internal Medicine; ATTEND Internal Medicine
DX: I48.0 Paroxysmal atrial fibrillation (principal); Z79.01 Long term (current) use of anticoagulants; E11.9 Type 2 diabetes mellitus without complications; E78.5 Hyperlipidemia, unspecified; F32.9 Major depressive disorder, single episode, unspecified; F41.9 Anxiety disorder, unspecified; I10 Essential (primary) hypertension; Z86.711 Personal history of pulmonary embolism; J45.909 Unspecified asthma, uncomplicated; K21.9 Gastro-esophageal reflux disease without esophagitis; N40.0 Benign prostatic hyperplasia without lower urinary tract symptoms; Z79.51 Long term (current) use of inhaled steroids; Z79.899 Other long term (current) drug therapy; Z87.891 Personal history of nicotine dependence; Z79.84 Long term (current) use of oral hypoglycemic drugs; Z82.49 Family history of ischemic heart disease and other diseases of the circulatory system; R07.9 Chest pain, unspecified; Z79.82 Long term (current) use of aspirin
CPT/HCPCS: 36415; 71046; 80048; 80053; 82550; 82553; 83036; 83735; 83880; 84443; 84484; 85025; 85027; 85610; 85730; 93005; 93306; 94760; 96365; 96366; 99291

== ENCOUNTER → 2018-06-01 | Outpatient (CLI) | payer MEDICARE, BC ==
--- NOTE | 2018-06-01 08:03 | MR ---
EXAMINATION TYPE: MR cervical spine wo con DATE OF EXAM: 06/01/2018 COMPARISON: 06/29/2015 HISTORY: Neck pain TECHNIQUE: Multiplanar, multisequence images of the cervical spine were acquired without intravenous contrast. FINDINGS: The cervical spine vertebral bodies maintain normal vertebral body heights and alignment. B one marrow signal is within normal limits. Multilevel disc desiccation is seen. Visualized portions o f the posterior fossa are unremarkable. C2-C3: There is a small central disc osteophyte complex and left facet arthropathy resulting in minim al left neural foraminal narrowing. No spinal canal stenosis. C3-C4: There is mild facet arthropathy without spinal canal stenosis or neural foraminal narrowing. V oxana small disc osteophyte complexes seen posteriorly. C4-C5: There is a small disc bulge and minimal facet arthropathy without neural foraminal narrowing o r spinal canal stenosis. C5-C6: There is a right paracentral disc herniation and minimal facet arthropathy mildly narrowing th e right neuroforamen. Left neural foramen and spinal canal are patent. C6-C7: There is a right paracentral disc herniation effacing the ventral subarachnoid space and abutt ing the ventral cervical spinal cord. This creates mild spinal canal stenosis. Additionally there is facet arthropathy and uncovertebral hypertrophy which great moderate right neuroforaminal narrowing. Left neural foramen is patent. C7-T1: No evidence for degenerative disc disease. No disc bulge/herniation or protrusion. No Canal stenosis. Foramina are patent bilaterally. IMPRESSION: 1. Progression from the prior. The previously seen disc bulge at C6-C7 has progressed to a right para central disc herniation creating mild spinal canal stenosis and moderate right neural foraminal narro wing. 2. Small right paracentral disc herniation at C5-C6, new from the prior creating mild right neurofora ning narrowing. 3. Mild multilevel degenerative disc disease throughout the remainder the lungs of the cervical spine . No additional areas of spinal canal stenosis nor additional disc herniation.
== END | disposition home or self-care (01) ==
LOC: RADMRIMAIN 07:06
PROVIDERS: ATTEND Internal Medicine
DX: M48.02 Spinal stenosis, cervical region (principal); M99.71 Connective tissue and disc stenosis of intervertebral foramina of cervical region; M50.222 Other cervical disc displacement at C5-C6 level; M50.30 Other cervical disc degeneration, unspecified cervical region
CPT/HCPCS: 72141

== ENCOUNTER → 2019-05-27 | Outpatient (CLI) | payer MEDICARE, BC ==
--- NOTE | 2019-05-27 11:41 | CT ---
EXAMINATION TYPE: CT brain wo con DATE OF EXAM: 05/27/2019 COMPARISON: 05/19/2012 HISTORY: 73-year-old male Fell out of bed broke the wall, blurred vision TECHNIQUE: Examination was done in axial plane without intravenous contrast. Coronal and sagittal r econstructions performed. CT DLP: 1153 mGycm Automated exposure control for dose reduction was used. FINDINGS: There is no evidence of acute intracranial hemorrhage, acute ischemic changes, mass, mass-effect, or extra-axial fluid collection. There is no effacement of cerebral sulci or basal subarachnoid cister ns. There is no hydrocephalus. There is no midline shift. You-white matter distinction is preserv ed. Mild generalized supratentorial volume loss progressed from 2011. Paranasal sinuses and mastoid air cells well pneumatized. Orbits and globes are intact. IMPRESSION: Mild generalized atrophy without acute intracranial abnormality seen.
== END | disposition home or self-care (01) ==
LOC: RADCTMAIN 10:55
PROVIDERS: ATTEND Internal Medicine
DX: G31.9 Degenerative disease of nervous system, unspecified (principal); G44.309 Post-traumatic headache, unspecified, not intractable; S06.5X0A Traumatic subdural hemorrhage without loss of consciousness, initial encounter
CPT/HCPCS: 70450

== ENCOUNTER → 2020-03-15 | Outpatient (CLI) | payer MEDICARE, BC ==
[2020-03-15 16:53] LABS: African American GFR (CKD) >90 (>60 ml/min/1.73 sqM); Blood Urea Nitrogen 27 mg/dL (9-20); Non-African American GFR(CKD) 80 (>60 ml/min/1.73 sqM)
--- NOTE | 2020-03-15 19:22 | CT ---
EXAMINATION TYPE: CT angio neck DATE OF EXAM: 03/15/2020 HISTORY: Carotid disease, Pt c/o BP issues, dizziness, SOB COMPARISON: None CT DLP: 379.40 mGycm. Automated Exposure Control for Dose Reduction was Utilized. TECHNIQUE: CTA scan of the neck is performed with IV Contrast, patient injected with 65 mL of Isovue 370, axial images are obtained, coronal and sagittal reformatted images are reviewed. Three-D recons tructed images are created on an independent workstation and reviewed. FINDINGS: A subpleural 2 mm nodule right upper lobe. Paraseptal emphysema right upper lobe. Compared to be subcentimeter thyroid nodules which could be correlated with ultrasound. There is annular three-vessel anatomy of the aortic arch. Origins of the great vessels widely patent. Visualized portions of the subclavian arteries are patent. Proximal common carotid arteries are wallis nt. Right vertebral artery dominant. Carotid bifurcations are patent bilaterally with no significant stenosis. Slight asymmetry of the car otid bulb larger on the right. No significant stenosis involving the right carotid bifurcation. Shotty adenopathy seen scattered throughout the compartments of the neck. Visualized portions of the basilar artery and intracerebral anterior, middle and posterior cerebral arteries which are only part ially included opacified normal IMPRESSION: 1. No evidence of significant hemodynamic stenosis of the carotid arteries. 2. Multinodular thyroid changes correlate clinically and with ultrasound as clinically warranted.
--- NOTE | 2020-03-15 19:29 | CT ---
EXAMINATION TYPE: CT angio chest DATE OF EXAM: 03/15/2020 6:55 PM COMPARISON: 10/21/2017 HISTORY: Thoracic aortic aneurysm w/out rupture. No sx to chest. CT DLP: 548 mGycm Automated exposure control for dose reduction was used. CONTRAST: CTA scan of the thorax is performed with IV Contrast, patient injected with 60 mL of Isovue 370, pulm onary embolism protocol. . FINDINGS: LUNGS: There are subsegmental changes posteriorly within the lungs likely in the basis of dependent a telectasis no pneumothorax or pleural effusion. Paraseptal emphysematous changes involving the lung a pex. 3 mm subpleural nodule right upper lobe. No overt failure. MEDIASTINUM: The heart is enlarged. Pulmonary arteries are suboptimally enhanced. Small amount of air is seen in the pulmonary artery likely iatrogenic. A standing aorta measures a maximal dimension of 4.2 cm sagittally unchanged from the prior exam. Descending thoracic aorta measures a maximal dimensi on of 3.4 cm with mild atherosclerotic changes. Main pulmonary artery measures 2.7 cm. There is a 1.1 cm pathologic lymph node within the right hilum similar appearance to prior exam. Additional shotty adenopathy in the mediastinum noted. OTHER: Surgical clips in the gallbladder fossa. Hypodensities within the kidneys suggestive of renal cysts. Mild hypertrophic degenerative change spine. IMPRESSION: 1. Ascending aorta measures a maximal dimension of 4.2 cm compatible with mild aneurysmal dilation. 2. Dependent subsegmental areas of consolidation most likely on the basis of dependent atelectasis. 3. Pulmonary arteries suboptimally enhanced. Patient had a previous history in 2018 pulmonary embolis m. No obvious central pulmonary embolism. 4. Nonspecific right hilar adenopathy measures short axis of 1.1 cm similar to the prior exam. 5. Cardiomegaly.
== END | disposition home or self-care (01) ==
LOC: RADCTMAIN 16:08
PROVIDERS: ATTEND Internal Medicine Interventional Cardiology
DX: E04.2 Nontoxic multinodular goiter (principal); R91.8 Other nonspecific abnormal finding of lung field; R59.0 Localized enlarged lymph nodes; I51.7 Cardiomegaly; Z86.711 Personal history of pulmonary embolism
CPT/HCPCS: 82565; 84520; 70498; 71275; 36415; Q9967

== ENCOUNTER → 2020-06-21 | Outpatient (CLI) | payer MEDICARE, BC ==
--- NOTE | 2020-06-21 08:19 | US ---
EXAMINATION TYPE: US thyroid st tissue head/neck DATE OF EXAM: 06/21/2020 COMPARISON: NONE CLINICAL HISTORY: R93.[address] Scan[address] nodule on CT GLAND SIZE: Right Lobe: 3.4 X 1.7 X 2.0 cm Overall Parenchyma: homogenous Left Lobe: 4.3 X 1.4 X 1.4 cm Overall Parenchyma: homogeneous Isthmus Thickness: 0.4 cm NODULES RIGHT: # of nodules measured on right: 0 LEFT: # of nodules measured on left: 0 ISTHMUS: # of nodules measured in the isthmus: 1, RIGHT SIDED 1. 0.4 X 0.4cm cystic nodule with well-defined margins. This nodule is wider than tall and shows. Prior size: DIRECTOR OF CONTENT AND PROGRAMMING Bilateral neck scanned, no evidence of lymphadenopathy. IMPRESSION: Subcentimeter isthmus nodule.
== END | disposition home or self-care (01) ==
LOC: RADUSWWP 07:25
PROVIDERS: ATTEND Nurse Practitioner Adult Health
DX: E04.1 Nontoxic single thyroid nodule (principal)
CPT/HCPCS: 76536

== ENCOUNTER → 2020-08-02 | Outpatient (CLI) | payer MEDICARE, BC ==
[2020-08-02 12:18] LABS: HCT 43.6 % (39.0-53.0); HGB 14.1 gm/dL (13.0-17.5); MCH 30.6 pg (25.0-35.0); MCHC 32.4 g/dL (31.0-37.0); MCV 94.6 fL (80.0-100.0); Mean Platelet Volume 8.3; Platelet Count 220 k/uL (150-450); RBC 4.61 m/uL (4.30-5.90); RDW 12.6 % (11.5-15.5); WBC 7.6 k/uL (3.8-10.6)
[2020-08-02 12:42] LABS: Potassium 4.5 mmol/L (3.5-5.1)
== END | disposition home or self-care (01) ==
LOC: LABPAT 11:35
PROVIDERS: ATTEND Internal Medicine Interventional Cardiology
DX: Z01.818 Encounter for other preprocedural examination (principal); R94.39 Abnormal result of other cardiovascular function study
CPT/HCPCS: 80051; 82565; 84520; 85027

== ENCOUNTER → 2020-08-08 | Day surgery (SDC) | payer MEDICARE, BC ==
[2020-08-03 14:59] VITALS: BMI 31.8
[~2020-08-08] MED LIST changes: +ALPRAZolam 0.25 MG TAB PO PRN; +ALPRAZolam 0.5 MG TAB PO PRN; +ASPIRIN 325 MG TAB ONE; +ASPIRIN 325 MG TAB PO STA; +ATORVASTATIN 80 MG TAB PO STA; +HEPARIN SODIUM 1,000 UN/ML (10ML VL) IV ONE; +HEPARIN SODIUM 1,000 UN/ML (10ML VL) ONE; +IOPAMIDOL-370 100ML BTL INJ ONE; -LACTATED RINGERS 1,000 ML IV SCH; +LIDOCAINE 1% INJ 10MG/ML (20 ML MDV) ONE; +LIDOCAINE 1% INJ 10MG/ML (20 ML MDV) SQ ONE; +MIDAZOLAM 2 MG/2 ML VIAL IV ONE; +NITROGLYCERIN SL TABS 0.4 MG TAB SUBLINGUAL PRN; +SODIUM CHLORIDE 0.9% 1,000 ML IV ONE; +SODIUM CHLORIDE 0.9% 1,000 ML IV SCH; +SODIUM CHLORIDE 0.9% 1,000 ML in EMPTY BAG 1 BAG IV ONE; +VERAPAMIL 2.5 MG/ML 2 ML AMP ONE
[2020-08-08 07:44] LABS: Glucose,Whole Blood 191 mg/dL (75-99)
[2020-08-08 07:47] VITALS: TEMP 98.2
[2020-08-08] MEDS: VERAPAMIL SYRINGE (5 MG/10 ML) INTRAARTER ONE ×2 (09:01→09:11)
[2020-08-08 09:56] VITALS: RESP 16
[2020-08-08 12:30] VITALS: PULSE 64
[2020-08-08 12:31] VITALS: BP 147/92
--- NOTE | 2020-08-08 14:31 | CC ---
CARDIAC CATHETERIZATION REPORT DATE OF SERVICE: 08/08/2020 PROCEDURE: Left heart catheterization and coronary angiography. PERFORMED BY: Dr. Charito Kelly. Moderate conscious sedation time was 15 minutes. Patient was administered Versed. Oxygen saturation, hemodynamics and EKG were monitored closely. CLINICAL INFORMATION: Mr. Jerry Sanders is a 75-year-old gentleman with history of hypertension, hyperlipidemia, a remote history of pulmonary embolism and paroxysmal atrial fibrillation. He has been having repeated recurrent chest pain suggestive of angina in spite of negative stress test and therefore after due discussion I recommended coronary angiography after explaining the risks, benefits, and options. He understood all details and wished to proceed with the procedure. PROCEDURE NOTE: Under local anesthesia and strict aseptic precautions, a 6-Turkmen introducer was placed in the right radial artery. Using a JL3.5 and JR4 catheters, I performed coronary angiography. The same right catheter was used to check LV pressures. LV gram was not performed. The sheath was taken out and TR band applied as per protocol and patient was sent to the room in stable condition. CARDIAC CATHETERIZATION FINDINGS: The left ventricular end-diastolic pressure was about 12 mmHg without any gradient across the aortic valve. CORONARY ANGIOGRAPHY FINDINGS: RIGHT CORONARY ARTERY: Technically a large dominant vessel, tortuous, no significant disease. Distally bifurcates into a large PDA and PLV, which have minor irregularities. No significant disease in the dominant RCA. LEFT MAIN CORONARY ARTERY: This is a short patent vessel, free of significant disease that immediately bifurcates into LAD and circumflex. Left main itself is short, free of significant disease. LEFT ANTERIOR DESCENDING CORONARY ARTERY: Good caliber vessel extends along the anterior wall, gives off septal and diagonal branches, tortuous. There are at least 2 good-sized diagonal branches and then the LAD runs all the way to the apex. No significant disease in the entire LAD system other than minor irregularities. LEFT POSTERIOR CIRCUMFLEX CORONARY ARTERY: Nondominant vessel comes off very proximally from the left main and gives off one obtuse marginal and then runs in the AV groove. Small caliber, small distribution. No significant disease. FINAL IMPRESSION: This patient has a right dominant system. Normal filling pressures. No gradient. No significant obstructive coronary artery disease. RECOMMENDATION: Findings were discussed with the patient and . The patient does not have any significant obstructive CAD. We will continue medical therapy and risk factor modification. He will be discharged later on today and I will see him in the office tomorrow at 8:30 a.m. MICAH / ELLIOTT: [id number] /
== END ==
LOC: CATHCVL 07:22
PROVIDERS: ATTEND Internal Medicine Interventional Cardiology
DX: R07.89 Other chest pain (principal); I20.0 Unstable angina; R51.9 Headache, unspecified; R06.02 Shortness of breath; I77.1 Stricture of artery; I48.0 Paroxysmal atrial fibrillation; I10 Essential (primary) hypertension; E78.00 Pure hypercholesterolemia, unspecified; E78.5 Hyperlipidemia, unspecified; E04.9 Nontoxic goiter, unspecified; E11.9 Type 2 diabetes mellitus without complications; E66.9 Obesity, unspecified; M19.90 Unspecified osteoarthritis, unspecified site; I71.4 Abdominal aortic aneurysm, without rupture; Z86.711 Personal history of pulmonary embolism; Z72.0 Tobacco use; Z79.899 Other long term (current) drug therapy; Z79.84 Long term (current) use of oral hypoglycemic drugs; Z79.51 Long term (current) use of inhaled steroids; Z79.01 Long term (current) use of anticoagulants; Z87.820 Personal history of traumatic brain injury; Z68.31 Body mass index [BMI] 31.0-31.9, adult; Z82.49 Family history of ischemic heart disease and other diseases of the circulatory system
CPT/HCPCS: 93458; C1769; C1894; J2250; J2001; J1644; Q9967

== ENCOUNTER → 2020-11-06 | Outpatient (CLI) | payer MEDICARE, BC ==
[2020-11-06 09:21] VITALS: BP 142/77; PULSE 55; RESP 18; TEMP 97.7
--- NOTE | 2020-11-06 09:39 | P.CONS ---
History of Present Illness - Reason for Consult Consult date: 11/06/20 - Chief Complaint Neck and lower back pain - History of Present Illness This is a 75-year-old gentleman with history of atrial fibrillation and treatment with Eliques. He has chronic neck and lower back pain. Dr. Cobb did cervical epidural steroid injection and a diagnostic lumbar medial branch block on the lower back area both of these injections did not help with of his pain. The pain in his neck is mostly in the upper neck area in the suboccipital area mostly with occasional tingling in the occipital area bilaterally. The patient denies any pain during the night and denies any weight loss. He also denies any bowel or bladder dysfunction. He has normal muscle strength in the upper and lower extremities with no weakness and no paresthesia as he states. The patient uses [id number] medications to treat his pain . He had a cervical MRI which showed multilevel degenerative changes most prominently at C5-C6 with disc protrusion contacting the right ventral cord without significant impression and moderate right neural foraminal narrowing at this level. Multilevel moderate neural foraminal narrowing is also uncovertebral and facet joint arthropathy at the C2-C3 level with mild left neuroforaminal narrowing at this level. Past Medical History Past Medical History: Atrial Fibrillation, Asthma, Diabetes Mellitus, GERD/Reflux, Hyperlipidemia, Hypertension, Pulmonary Embolus (PE) Additional Past Medical History / Comment(s): PE 1971 and 2017, History of Any Multi-Drug Resistant Organisms: None Reported Past Surgical History: Appendectomy, Cholecystectomy, Heart Catheterization, Tonsillectomy Past Anesthesia/Blood Transfusion Reactions: Motion Sickness Past Psychological History: Anxiety Smoking Status: Former smoker Past Alcohol Use History: Occasional Additional Past Alcohol Use History / Comment(s): quit smoking 40 yrs ago, smoked for 20 yrs, 1 PPD Past Drug Use History: None Reported - Past Family History Mother Family Medical History: No Reported History Father Additional Family Medical History / Comment(s): Dementia Medications and Allergies Home Medications Medication Instructions Recorded Confirmed Type Atorvastatin [Lipitor] 10 mg PO DAILY 06/15/14 11/02/20 History LORazepam [Lorazepam] 0.5 mg PO DAILY 06/25/16 11/02/20 History Fluticasone/Salmeterol [Advair Hfa 2 puff INHALATION RT-BID PRN 09/29/17 11/02/20 History 230-21 Mcg Inhaler] Aspirin EC [Ecotrin Low Dose] 81 mg PO DAILY #30 tablet. 10/22/17 11/02/20 Rx Apixaban [Eliquis] 5 mg PO BID 01/14/18 11/02/20 History Tamsulosin [Flomax] 0.4 mg PO HS 01/14/18 11/02/20 History glipiZIDE XL [Glucotrol XL] 5 mg PO DAILY 01/14/18 11/02/20 History lisinopriL [Zestril] 5 mg PO HS 01/14/18 11/02/20 History Propafenone [Rythmol] 150 mg PO BID #60 tab 01/15/18 11/02/20 Rx Metoprolol Succinate (ER) [Toprol 12.5 mg PO DAILY 11/02/20 11/02/20 History XL] Allergies Allergy/AdvReac Type Severity Reaction Status Date / Time No Known Allergies Allergy Verified 11/02/20 11:32 Physical Exam Vitals: Vital Signs Temp Pulse Resp BP Pulse Ox 11/06/20 09:18 97.7 F 55 L 18 142/77 98 - Constitutional General appearance: no acute distress, obese - EENT Eyes: PERRLA - Neurologic Neuro exam of the upper extremities showed normal and symmetrical muscle strength and biceps tendon reflexes, absent triceps reflexes bilaterally. Neuro exam of the lower extremities showed normal and symmetrical knee reflex is and absent ankle reflexes bilaterally. Normal muscle strength in the lower extremities bilaterally. Positive tenderness in the cervical suboccipital area bilaterally Subcutaneous mass in the left occipital area with mild tenderness No tenderness in the lumbar paravertebral musculature. Facet loading test positive bilaterally Neurologic: CNII-XII intact - Psychiatric Psychiatric: A&O x's 3, appropriate affect, intact judgment & insight Assessment and Plan Plan: This is a 75-year-old gentleman with the following diagnoses: Cervical spondylosis without myelopathy Cervical degenerative disc disease Cervicogenic headache Lumbar spondylosis without myelopathy Atrial fibrillation with treatment with Eliques Plan: The patient may benefit from getting C2 and C3 and third occipital nerve block bilaterally as diagnostic procedure. 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 The procedure was explained to the patient and his questions were answered. He was agreeable to undergo this procedure as diagnostic means to find the source of his neck pain. I thank you for the referral
== END ==
LOC: PNWHC3 09:06
PROVIDERS: ATTEND Anesthesiology
DX: M47.812 Spondylosis without myelopathy or radiculopathy, cervical region (principal); M50.30 Other cervical disc degeneration, unspecified cervical region; R51.9 Headache, unspecified; M47.816 Spondylosis without myelopathy or radiculopathy, lumbar region; I48.91 Unspecified atrial fibrillation; J45.909 Unspecified asthma, uncomplicated; E11.9 Type 2 diabetes mellitus without complications; E78.5 Hyperlipidemia, unspecified; I10 Essential (primary) hypertension; F41.9 Anxiety disorder, unspecified; Z79.82 Long term (current) use of aspirin; Z79.51 Long term (current) use of inhaled steroids; Z79.84 Long term (current) use of oral hypoglycemic drugs; Z79.899 Other long term (current) drug therapy; Z79.02 Long term (current) use of antithrombotics/antiplatelets; Z86.711 Personal history of pulmonary embolism; Z87.891 Personal history of nicotine dependence
CPT/HCPCS: 99211

== ENCOUNTER → 2020-12-22 | Day surgery (SDC) | payer MEDICARE, BC ==
[2020-12-20 10:02] VITALS: BMI 32.5
[~2020-12-22] MED LIST changes: -ALPRAZolam 0.25 MG TAB PO PRN; -ALPRAZolam 0.5 MG TAB PO PRN; -ASPIRIN 325 MG TAB ONE; -ASPIRIN 325 MG TAB PO STA; -ATORVASTATIN 80 MG TAB PO STA; +DEXAMETHASONE SOD PHOSPHATE 10 MG/ML 1 ML VIAL ONE; -HEPARIN SODIUM 1,000 UN/ML (10ML VL) IV ONE; -HEPARIN SODIUM 1,000 UN/ML (10ML VL) ONE; +IOPAMIDOL M200 10 ML VIAL ONE; -IOPAMIDOL-370 100ML BTL INJ ONE; +LACTATED RINGERS 1,000 ML IV ONE; -LIDOCAINE 1% INJ 10MG/ML (20 ML MDV) ONE; -LIDOCAINE 1% INJ 10MG/ML (20 ML MDV) SQ ONE; -MIDAZOLAM 2 MG/2 ML VIAL IV ONE; +MIDAZOLAM 2 MG/2 ML VIAL ONE; -NITROGLYCERIN SL TABS 0.4 MG TAB SUBLINGUAL PRN; +ROPIVACAINE 5MG/ML 20ML VIAL ONE; -SODIUM CHLORIDE 0.9% 1,000 ML IV ONE; -SODIUM CHLORIDE 0.9% 1,000 ML IV SCH; -SODIUM CHLORIDE 0.9% 1,000 ML in EMPTY BAG 1 BAG IV ONE; -VERAPAMIL 2.5 MG/ML 2 ML AMP ONE; +fentaNYL (PF) 50 MCG/ML 2 ML AMP ONE
[2020-12-22 09:29] VITALS: TEMP 97.8
[2020-12-22 09:38] LABS: Glucose,Whole Blood 132 mg/dL (75-99)
--- NOTE | 2020-12-22 10:33 | P.PCN ---
Date of Procedure: 12/22/20 Description of Procedure: PREOPERATIVE DIAGNOSIS : Cervicalgia with Facet Arthropathy without myelopathy POSTOPERATIVE DIAGNOSIS: same PROCEDURE: first Diagnostic cervical medial branch block with fluoroscopy at TON, C3 [bilateral] which covers facets C2-C3 #1 ANESTHESIA: Local anesthetic; moderate IV sedation with anesthesia team Fluoroscopy was used for the procedure and images were saved in the radiology portion of the chart. Surgeon: Jeff Starr MD PROCEDURE INDICATION: Cervical pain without radiculopathy, not responsive to conservative management. PROCEDURE DESCRIPTION: the patient was seen and identified in the preop holding area , risks and benefits and possible complications of the procedure and alternatives were discussed with the patient, and the patient agreed to proceed with the procedure and signed the consent . IV was started , vital signs were monitored during the procedure and fluoroscopy was used to maximize the benefit and accuracy of the needle placement, and sedation was given to decrease patient anxiety. Patient was taken to the procedure room and placed in prone position. An AP fluoroscopic rn advanced film was taken to identify the dens, the C2, C3 vertebral bodies, and the waists of the articular pillars at the aforementioned levels. A lateral view was utilized to highlight the waists of the articular pillars at these levels. The skin was prepped with chlorhexidine and draped in the usual sterile fashion. The skin and subcutaneous tissue overlying the above levels were anesthetized using a 25-gauge 1-1/2-inch needle with 1% preservative free lidocaine for a total volume of 1 ml per level. An AP fluoroscopic rn advanced film was taken to identify the dens, the C2 C3 vertebral bodies, and the center of the centroid at the aforementioned levels. A lateral view was utilized to highlight the centroids at these levels. The skin was prepped with chlorhexidine and draped in the usual sterile fashion. The skin and subcutaneous tissue overlying the above levels were anesthetized using a 25-gauge 1-1/2-inch needle with 1% preservative free lidocaine for a total volume of 1 ml per level. An 25-gauge 3.5" Quinke needle was advanced, coaxially, in the lateral view until the needle tip was noted to slide into the center of the centroid. The needles were advanced until bony contact was felt and the tip of the Quinke needle was confirmed to be in the center of the articular pillars at the aforementioned levels. The needle positions were confirmed with AP and lateral fluoroscopic views. 0.2 mL of Isovue 200 per level was injected which revealed no vascular uptake and after negative aspiration, 0.5 mL of ropivacaine along with dexamethasone 5 mg was injected at each level and the needle subsequently removed . Total of 5 mg dexamethasone used At the end of the procedure and the needles were removed and a bandage applied after the skin was cleaned. The patient was taken to recovery room in stable condition and monitors in the recovery room for 20-30 minutes and discharged home in stable condition after discharge criteria met and patient will follow up in clinic in 2 weeks EBL: Minimal COMPLICATION: None.
--- NOTE | 2020-12-22 10:41 | FL ---
EXAMINATION TYPE: FL guided pain mgmt statistic DATE OF EXAM: 12/22/2020 CLINICAL HISTORY: Neck pain. TECHNIQUE: Fluoroscopy. COMPARISON: None. FINDINGS: Fluoroscopic guidance was provided during pain relief procedure performed by Dr. Starr. A total of 8 seconds of fluoroscopic time was utilized during the procedure and 4 spot images are acq uired. Images acquired shows needle localization at several levels of the upper cervical spine. IMPRESSION: As Above.
[2020-12-22 10:55] VITALS: BP 122/75; PULSE 63; RESP 16
== END ==
LOC: ORPAIN 09:05
PROVIDERS: ATTEND Anesthesiology
DX: M47.812 Spondylosis without myelopathy or radiculopathy, cervical region (principal); E78.5 Hyperlipidemia, unspecified; E11.9 Type 2 diabetes mellitus without complications; J45.909 Unspecified asthma, uncomplicated; I48.91 Unspecified atrial fibrillation; G47.33 Obstructive sleep apnea (adult) (pediatric); F41.9 Anxiety disorder, unspecified; F32.9 Major depressive disorder, single episode, unspecified; Z99.89 Dependence on other enabling machines and devices; Z79.01 Long term (current) use of anticoagulants; Z79.82 Long term (current) use of aspirin; Z79.899 Other long term (current) drug therapy
CPT/HCPCS: 64490; J2250; J1100; J3010; Q9966; J2795

== ENCOUNTER 2021-01-12 12:13 | Day surgery (SDC) | payer MEDICARE, BC ==
[2021-01-11 09:00] VITALS: BMI 32.3
[~2021-01-12 12:13] MED LIST changes: -DEXAMETHASONE SOD PHOSPHATE 10 MG/ML 1 ML VIAL ONE; -IOPAMIDOL M200 10 ML VIAL ONE; -LACTATED RINGERS 1,000 ML IV ONE; +LACTATED RINGERS 1,000 ML IV SCH; -MIDAZOLAM 2 MG/2 ML VIAL ONE; -ROPIVACAINE 5MG/ML 20ML VIAL ONE; -fentaNYL (PF) 50 MCG/ML 2 ML AMP ONE
[2021-01-12 12:48] VITALS: RESP 16; TEMP 97.2
[2021-01-12 12:55] LABS: Glucose,Whole Blood 128 mg/dL (75-99)
[2021-01-12] MEDS ORDERED: ROPIVACAINE 5MG/ML 20ML VIAL ONE (13:44)
[2021-01-12] MEDS ORDERED: methylPREDNISolone ACETATE 40 MG/ML 1 ML VIAL ONE (13:44)
[2021-01-12] MEDS ORDERED: MIDAZOLAM 2 MG/2 ML VIAL ONE (13:44)
[2021-01-12] MEDS ORDERED: fentaNYL (PF) 50 MCG/ML 2 ML AMP ONE (13:44)
[2021-01-12] MEDS ORDERED: IV FLUID CONTINUATION 1,000 ML IV ONE (14:04)
--- NOTE | 2021-01-12 14:06 | P.PCN ---
Date of Procedure: 01/12/21 Procedure(s) Performed: PREOPERATIVE DIAGNOSIS:1- Cervical Spondylosis with Facet Arthropathy.without myelopathy. 2-cervicogenic headache POSTOPERATIVE DIAGNOSIS: 1-Cervical Spondylosis Facet Arthropathy. Without myelopathy. 2-cervicogenic headache. PROCEDURES: Diagnostic Bilateral C2 , C3, medial branch blocks, with fluoroscopic guidance (fluoroscopy images available in radiology department ) Diagnostic bilateral third occipital nerve block under fluoroscopy guidance ANESTHESIA: monitored anesthesia care as per anesthesia department. EBL: Minimal PROCEDURE INDICATION: The patient with neck pain secondary to cervical arthropathy unresponsive to more conservative treatments. PROCEDURE DESCRIPTION / TECHNIQUE: The patient was seen and identified in the preoperative area. Risks, benefits, complications, and alternatives were discus sed with the patient, the patient agreed to proceed with the procedure and signed the consent. IV was started. Vital signs remained stable throughout the procedure. Patient was taken to the OR and time out was completed. The patient was placed in the prone position on the procedure table. A pillow was placed under the patients chest to increase the cervical interlaminar space. The cervical area w as prepped and draped in the usual sterile fashion. Critical pause was taken. Vital signs were closely monitored during the procedure. Conscious sedation was used during the procedure to decrease patients anxiety. Using cross-table lateral fluoroscopy, the centroid of the trapezoid of right C2 ,C3,was identified, marked, and localized with 1% lidocaine 1 ml at each level for skin and Sub Q infiltrations . Subsequently, a 25 G 2 spinal needle was advanced guided by fluoroscopy to the centroid of the trapezoid of Right C2 C3,. Fingal tip position was confirmed at the centroid of the trapezoids of Right C2 ,C3 , with anteroposterior fluoroscopy. Subsequently, 1 ml of preservative-free Ropivacaine 0.5% mixed with Depo-Medrol 20 mg and half ml of the mixture was injected after negative aspiration for blood and CSF, then to do the the right third occipital nerve on either 25-gauge needle placed at the center of the facet joints between the C2 and C3 levels ,after needle placement confirmed under fluoroscopy, Ropivacaine 0.5% half mL injected after negative aspiration, then Fingal was then removed intact and the exact same procedure was repeated at the left C2 C3 , and left third occipital nervelevels. COMPLICATIONS: No acute complications DISPOSITION / PLANS: The patient was placed in a supine position and transferred to the recovery area in a stable condition for observation and was discharged from the recovery room after meeting discharge criteria. Home discharge instructions given to the patient by the staff. The patient was reexamined prior to discharge. The patient will schedule a follow up in the clinic in 2-4 weeks.
--- NOTE | 2021-01-12 14:09 | FL ---
EXAMINATION TYPE: FL guided pain mgmt statistic DATE OF EXAM: 01/12/2021 CLINICAL HISTORY: Neck pain. TECHNIQUE: Fluoroscopy. COMPARISON: None. FINDINGS: Fluoroscopic guidance was provided during pain relief procedure performed by Dr. Bush . A total of 10 seconds of fluoroscopic time was utilized during the procedure and two spot images a re acquired. Images acquired shows needle localization at several levels in the cervical spine. IMPRESSION: As Above.
[2021-01-12 14:19] VITALS: BP 119/73; PULSE 55
== END 2021-01-12 14:35 ==
LOC: ORPAIN 12:13
PROVIDERS: ATTEND Specialist
DX: M47.812 Spondylosis without myelopathy or radiculopathy, cervical region (principal); G44.89 Other headache syndrome; I48.91 Unspecified atrial fibrillation; I10 Essential (primary) hypertension; E78.5 Hyperlipidemia, unspecified; J45.909 Unspecified asthma, uncomplicated; E11.9 Type 2 diabetes mellitus without complications; K21.9 Gastro-esophageal reflux disease without esophagitis; Z97.2 Presence of dental prosthetic device (complete) (partial); Z79.01 Long term (current) use of anticoagulants; Z79.84 Long term (current) use of oral hypoglycemic drugs; Z79.1 Long term (current) use of non-steroidal anti-inflammatories (NSAID); Z79.82 Long term (current) use of aspirin; Z79.51 Long term (current) use of inhaled steroids; Z79.899 Other long term (current) drug therapy
CPT/HCPCS: 64490; 64491; J2250; J1030; J3010; J2795

== ENCOUNTER → 2021-02-12 | Outpatient (CLI) | payer MEDICARE, BC ==
[2021-02-12 10:08] VITALS: BP 112/75; PULSE 60; RESP 16; TEMP 97.9
--- NOTE | 2021-02-12 10:40 | P.PN ---
Subjective Progress Note Date: 02/12/21 This is follow-up visit for this 75 years old male with a chronic history of severe neck pain and headache is diagnosed with cervical stenosis with cervical facet arthropathy and cervical degenerative disc disease and cervicogenic headache, and occipital neuralgia, essentially weeded diagnostic medial branch block at C2 and C3 and bilateral third occipital nerve block patient reported that his pain improved more than 80% after each block and the pain relief was only for short-term, he denies any motor or sensory deficits he denies any fever or night sweats and he denies any change in the bowel movement or urination Objective - Vital Signs Vital signs: Vital Signs Temp 97.9 F 02/12/21 10:03 Pulse 60 02/12/21 10:03 Resp 16 02/12/21 10:03 BP 112/75 02/12/21 10:03 Pulse Ox 96 02/12/21 10:03 - Exam Physical Examinations : -Constitutiona : Cooperative , not in acute distress . -HEENT : nech : supple , no Lymphadenopathy , normal thyroid size . : eyes : no ptosis , no icterus, no photophobia . - neurologic : Cranial nerve II to XII intact , no focal neurological deffecit . -psychatric : alert , oriented X 3 , appropriate affect , intact judgment and insight . -Lymphatic : no Lymphadenopathy . - musculoskeltal : Cervical Spine motor stregnth in the deltoid and biceps, normal right side , normal Left side motor stregnth biceps and the wrist extensors normal right side ,normal left side . motor stregnth in the triceps muscle . normal Right side , normal Left side deep tendon reflexes normal at the biceps , normal at Brachioradialis , normal at triceps. cervical facet loading test: Positive Bilaterally Spurling test= positive Right , positive left. Neck distraction test= positive Right , positive left. Jewell sign= positive right, positive left . Tenderness over the occipital nerve bilaterally Lumber spine moter stegnth lower extremities ,thigh and legs 5/5 Right side , 5/5 Left side Assessment and Plan Plan: Assessment and plan=1-cervical spondylosis with cervical facet arthropathy without myelopathy. 2-cervical degenerative disc disease. 3-occipital neuralgia. 4-cervicogenic headache. 5-atrial fibrillation on ELEQUIS Patient had more than 80% improvement of his neck pain and headache for short-term after the diagnostic medial branch block x2 He will be good candidate to have RFA of the medial branch at C2, C3, and third occipital nerve, he had to hold liquids for 3 days before the procedure - PQRS measures = - Patient's medications are documented in the chart. -Tobacco use is negative and counseling.Given. -Patient's has not received pneumococcal vaccine. -Advanced care planning discussed, patient not eligible. -Opiate contract not signed. -Pain positive and follow-up visit/procedure is scheduled. -Patient's blood pressure measured [112/75 ] , and documented in the record ,and patient will follow up with the primary care. -Patient's weight was measured and body mass index [ 31.9] above the normal limits and counseling was done. and patient instructed to follow-up with the primary care physician. -Patient was not identified as an unhealthy alcohol user Time with Patient: Less than 30
--- NOTE | 2021-02-12 11:08 | P.PN ---
Progress Note - Text Progress Note Date: 02/12/21 This is an addendum to the note done earlier today= patient is scheduled to have RFA medial branch cervical area, and he reported that he stopped the is for more than 72 hours,( on his own) for this reason we will try to fit the patient the procedure tomorrow, as patient already held Elequis for 3 days
== END ==
LOC: PNWHC3 09:39
PROVIDERS: ATTEND Specialist
DX: M47.812 Spondylosis without myelopathy or radiculopathy, cervical region (principal); M50.30 Other cervical disc degeneration, unspecified cervical region; M54.81 Occipital neuralgia; I48.91 Unspecified atrial fibrillation; Z87.891 Personal history of nicotine dependence
CPT/HCPCS: 99211

== ENCOUNTER 2021-02-13 08:03 | Day surgery (SDC) | payer MEDICARE, BC ==
[2021-02-13 08:25] VITALS: RESP 16; TEMP 98
[2021-02-13 08:30] LABS: Glucose,Whole Blood 140 mg/dL (75-99)
[2021-02-13] MEDS ORDERED: LACTATED RINGERS 1,000 ML IV ONE (08:31)
[2021-02-13] MEDS ORDERED: ROPIVACAINE 5MG/ML 20ML VIAL ONE (08:55)
[2021-02-13] MEDS ORDERED: methylPREDNISolone ACETATE 40 MG/ML 1 ML VIAL ONE (08:55)
[2021-02-13] MEDS ORDERED: fentaNYL (PF) 50 MCG/ML 2 ML AMP ONE (08:55)
[2021-02-13] MEDS ORDERED: MIDAZOLAM 2 MG/2 ML VIAL ONE (08:55)
--- NOTE | 2021-02-13 09:34 | P.PCN ---
Date of Procedure: 02/13/21 Procedure(s) Performed: PREOPERATIVE DIAGNOSIS:1- Cervical spondylosis with Facet Arthropathy without myelopathy. 2-cervicogenic headache. 3-occipital neuralgia POSTOPERATIVE DIAGNOSIS: Same preoperative diagnosis PROCEDURES: Radiofrequency thermocoagulation, Bilateral C2 ,C3 medial branch with Fluroscopy Guidence(fluoroscopy was available in etiology department ) Radiofrequency thermocoagulation Bilateral third occipital nerve under fluoroscopy guidance ANESTHESIA: moderate sedation with fentanyl 50 micrograms and Versed 1 mg EBL: Minimal PROCEDURE INDICATION: The patient with neck pain secondary to cervical arthropathy who had more than 50% relief of her pain with previous diagnostic cervical medial branch block. PROCEDURE DESCRIPTION / TECHNIQUE: The patient was seen and identified in the preoperative area. Risks, benefits, complications, and alternatives were discussed with the patient, the patient agreed to proceed with the procedure and signed the consent. IV was started. Vital signs remained stable throughout the procedure. Patient was taken to the OR and time out was completed. The patient was placed in the prone position on the procedure table. A pillow was placed under the patients chest to increase the cervical interlaminar space. The cervical area was prepped and draped in the usual sterile fashion. Critical pause was taken. Vital signs were closely monitored during the procedure. Conscious sedation was used during the procedure to decrease patients anxiety. Using cross-table lateral fluoroscopy, the centroid of the trapezoid of Right C2 ,C3, were identified, marked, and localized with 1% lidocaine. Subseque ntly, a 20 [id number] radiofrequency cannula with a 10-mm active tip was advanced guided by fluoroscopy to the centroid of the trapezoid of right C2 , C3, . Needle tip position was confirmed at the centroid of the trapezoids of Right C2 , C3, with anteroposterior fluoroscopy. Each site then underwent sensory testing at 50 Hz and 0 to 1 volt and motor testing at 2 Hz and 0 to 3 volt with local stimulation, but no radicular symptoms down the arm. Thereafter each sites underwent radiofrequency thermocoagulation at 80 degrees celsius for 90 seconds after injecting 0.5 ml of PF Ropivacaine 0.5 %. After thermocoagulation, 1 ml of the block solution containing Depo-Medrol 20 mg and 2 mL of preservative-free normal saline was injected at the Right C2 ,C3, levels after negative aspiration of CSF and blood and with no paresthesias. To do the radiofrequency of the right third occipital nerve 20-gauge 100 mm radiofrequency cannula with 10 mm active tip was advanced under fluoroscopy and placed center of the facet joint between the C2 and C3 vertebral , placement confirmed under fluoroscopy with the AP and lateral view then after that he did motor stimulation and sensory stimulation which was negative for any radicular symptoms in the right upper extremity then after negative aspiration the thermocoagulation was done at 80C for 90 seconds , and after that the same exact procedure was repeated for the left side I did the radiofrequency thermocoagulation of the left side C2 and C3 medial branches and the radiofrequency thermocoagulation of the left side third occipital nerve , and after the procedure was done ,the Cannulas were retracted while injecting lidocaine 1% until the needle is out. Skin was cleansed and bandages were applied. COMPLICATIONS: No acute complications. DISPOSITION / PLANS: The patient was placed in a supine position and transferred to the recovery area in a stable condition for observation and was discharged from the recovery room after meeting discharge criteria. Home discharge instructions given to the patient by the staff. The patient was reexamined prior to discharge. The patient will schedule a follow up in the clinic in 2-4 weeks.
[2021-02-13] MEDS ORDERED: IV FLUID CONTINUATION 1,000 ML IV ONE (09:52)
[2021-02-13 10:02] VITALS: BP 99/63; PULSE 56
--- NOTE | 2021-02-13 13:05 | FL ---
EXAMINATION TYPE: FL guided pain mgmt statistic DATE OF EXAM: 02/13/2021 HISTORY: Cerv Rad Freq 15sec fluoro time 4 images to PACS
== END 2021-02-13 10:13 | disposition home or self-care (01) ==
LOC: ORPAIN 08:03
PROVIDERS: ATTEND Specialist
DX: M47.812 Spondylosis without myelopathy or radiculopathy, cervical region (principal); M54.81 Occipital neuralgia
CPT/HCPCS: 64633; J2250; J1030; J3010; J2795; 64640; 99152; 99153

== ENCOUNTER → 2021-03-07 | Outpatient (CLI) | payer MEDICARE, BC ==
[2021-03-07 09:10] VITALS: BP 122/80; PULSE 58; RESP 18; TEMP 97.9
--- NOTE | 2021-03-07 09:28 | P.PAINPG ---
Subjective Progress Note Date: 03/07/21 This is follow-up visit for this 75 years old male with a chronic history of severe neck pain and headache is diagnosed with cervical stenosis with cervical facet arthropathy and cervical degenerative disc disease and cervicogenic headache, and occipital neuralgia, we recently performed bilateral TON C3 RFA. Is on Eliquis. Patient notes he had no relief from the cervical RFA. He does note that he feels numbness and tingling over the back of his neck which I told him can be normal. His main Complaint is in his low back nonradiating described as sharp and stabbing in nature. Pain is made worse with standing and bending over and better with rest. Looking through his records he has had bilateral l umbar radiofrequency ablation of L2 through L5 with Dr. Cobb which he said provided 0% relief. Overall the patient is very insistent and no procedure has provided him benefit. he denies any motor or sensory deficits he denies any fever or night sweats and he denies any change in the bowel movement or urination - Exam Physical Examinations : -Constitutiona : Cooperative , not in acute distress . -HEENT : nech : supple , no Lymphadenopathy , normal thyroid size . : eyes : no ptosis , no icterus, no photophobia . - neurologic : Cranial nerve II to XII intact , no focal neurological deffecit . -psychatric : alert , oriented X 3 , appropriate affect , intact judgment and insight . -Lymphatic : no Lymphadenopathy . - musculoskeltal : Cervical Spine motor stregnth in the deltoid and biceps, normal right side , normal Left side motor stregnth biceps and the wrist extensors normal right side ,normal left side . motor stregnth in the triceps muscle . normal Right side , normal Left side deep tendon reflexes normal at the biceps , normal at Brachioradialis , normal at triceps. cervical facet loading test: Positive Bilaterally Spurling test= positive Right , positive left. Neck distraction test= positive Right , positive left. Jewell sign= positive right, positive left . Tenderness over the occipital nerve bilaterally Lumber spine moter stegnth lower extremities ,thigh and legs 5/5 Right side , 5/5 Left side . Facet loading positive bilaterally. Tenderness to palpation over paraspinal muscles. SLR negative bilaterally. Assessment and Plan Plan: Assessment and plan=1-cervical spondylosis with cervical facet arthropathy without myelopathy. 2-cervical degenerative disc disease. 3-occipital neuralgia. 4-cervicogenic headache. 5-atrial fibrillation on ELEQUIS 6- lumbar spinal stenosis - The lumbar spine MRI from 2019 does show some degenerative disc disease as well as moderate canal stenosis at L4-L5 with impression of the L4 nerve root at that level. I told the patient he has had multiple procedures in the past for his pain and none have provided any benefit. I told him that this epidural might not provide him any benefit at all after that we would not have much to offer him in terms of interventions. Patient understands. - PQRS measures = - Patient's medications are documented in the chart. -Tobacco use is negative and counseling.Given. -Patient's has not received pneumococcal vaccine. -Advanced care planning discussed, patient not eligible. -Opiate contract not signed. -Pain positive and follow-up visit/procedure is scheduled. -Patient's blood pressure measured [112/75 ] , and documented in the record ,and patient will follow up with the primary care. -Patient's weight was measured and body mass index [ 31.9] above the no rmal limits and counseling was done. and patient instructed to follow-up with the primary care physician. -Patient was not identified as an unhealthy alcohol user I have spent 34 minutes on review of the records, review of the imaging available, [id number] interaction with the patient, medication management, follow-up care coordination and record creation. PQRS Measure Charge Sheet PQRS Narrative: Smoking Status Former smoker Hx Alcohol Use (MH) No Home Medications: Ambulatory Orders LORazepam [Lorazepam] 0.5 mg PO DAILY PRN 06/25/16 Fluticasone/Salmeterol [Advair Hfa 230-21 Mcg Inhaler] 2 puff INHALATION RT-BID PRN 09/29/17 Aspirin EC [Ecotrin Low Dose] 81 mg PO DAILY #30 tablet. 10/22/17 Apixaban [Eliquis] 5 mg PO BID 01/14/18 Tamsulosin [Flomax] 0.4 mg PO HS 01/14/18 glipiZIDE XL [Glucotrol XL] 5 mg PO DAILY 01/14/18 lisinopriL [Zestril] 5 mg PO HS 01/14/18 Propafenone [Rythmol] 150 mg PO BID #60 tab 01/15/18 Lansoprazole [Prevacid] 30 mg PO DAILY 12/20/20 Naproxen Sodium [Aleve] 440 mg PO DIRECTED PRN 12/20/20 Controlled Substance Measures - Controlled Substance Measures Is patient prescribed a controlled substance at discharge?: No
== END ==
LOC: PNWHC3 08:55
PROVIDERS: ATTEND Anesthesiology
DX: M47.812 Spondylosis without myelopathy or radiculopathy, cervical region (principal); M50.30 Other cervical disc degeneration, unspecified cervical region; M54.81 Occipital neuralgia; I48.91 Unspecified atrial fibrillation; M48.061 Spinal stenosis, lumbar region without neurogenic claudication; Z87.891 Personal history of nicotine dependence
CPT/HCPCS: 99211

== ENCOUNTER → 2021-03-29 | Outpatient (CLI) | payer MEDICARE, BC ==
--- NOTE | 2021-03-29 21:34 | MR ---
EXAMINATION TYPE: MR brain and iac wo/w con DATE OF EXAM: 03/29/2021 COMPARISON: None HISTORY: Ataxia, worsening Vertigo, Diplopia TECHNIQUE: Multiplanar, multisequence images of the brain and brainstem is performed without and with IV contras t, utilizing 11 mL intravenous Gadavist . FINDINGS: Diffusion weighted images demonstrate no evidence of a recent infarct or other diffusion ab normality. There is no extra-axial fluid collection. The ventricular system and cisternal spaces ar e normal in size and appearance. The brain volume is age appropriate. There is a mild burden of T2/FLAIR signal abnormality in the periventricular and subcortical white ma tter likely on the basis of chronic ischemic microangiopathic change. Midline structures demonstrate normal morphology. The craniocervical junction appears within normal limits. Post contrast images demonstrate no abnormal enhancement. The dural venous sinuses appear pa tent. The visualized sinuses are clear and the globes are intact. Cerebellopontine angle cisterns, the internal auditory canals and the bilateral cranial nerves VII an d VIII appear unremarkable. The fluid signal of the urinary structures is within normal limits. IMPRESSION: Unremarkable acoustic protocol brain MRI with senescent changes but without any pathologi lizette intracranial enhancement.
== END | disposition home or self-care (01) ==
LOC: RADMRIMAIN 14:58
PROVIDERS: ATTEND Psychiatry & Neurology Neurology
DX: R93.0 Abnormal findings on diagnostic imaging of skull and head, not elsewhere classified (principal)
CPT/HCPCS: 70553; A9585

== ENCOUNTER 2021-04-17 09:53 | Day surgery (SDC) | payer MEDICARE, BC ==
[2021-04-02 08:40] VITALS: BMI 31.8
[2021-04-17 10:30] VITALS: TEMP 97.8
[2021-04-17 10:43] LABS: Glucose,Whole Blood 131 mg/dL (75-99)
[2021-04-17] MEDS ORDERED: fentaNYL (PF) 50 MCG/ML 2 ML AMP ONE (10:44)
[2021-04-17] MEDS ORDERED: MIDAZOLAM 2 MG/2 ML VIAL ONE (10:44)
[2021-04-17] MEDS ORDERED: IOPAMIDOL M200 10 ML VIAL ONE (10:44)
[2021-04-17] MEDS ORDERED: methylPREDNISolone ACETATE 40 MG/ML 1 ML VIAL ONE (10:44)
[2021-04-17] MEDS ORDERED: IV FLUID CONTINUATION 850 ML IV ONE (10:55)
--- NOTE | 2021-04-17 10:56 | P.PCN ---
Date of Procedure: 04/17/21 Procedure(s) Performed: PREOPERATIVE DIAGNOSIS: 1- Lumbar Degenerative Disc Diseases 2-Lumbar spinal stenosis POSTOPERATIVE DIAGNOSIS: Same as preop diagnosis. PROCEDURE 1. Lumbar epidural steroid injection under fluoroscopic guidance at the L4-5 level. (Fluoroscopy imaging was available in radiology department) 2. Lumbar epidurogram. ANESTHESIA: Local with 1% lidocaine 3 ml and , moderate sedation with intravenous Versed 1 mg ,and fentanyle 50 Mcg EBL: Minimal PROCEDURE INDICATION: The patient with low back pain and radiculitis symptoms unresponsive to conservative treatment. Fluoroscopy was used to optimize visualization of the needle placement and to maximize safety. PROCEDURE DESCRIPTION / TECHNIQUE: The patient was seen and identified in the preoperative area. Risks, benefits, complications including but not limited to infections ,bleeding ,allergic reaction to the medications ,nerve damage and not complete pain releife , and alternatives were discussed with the patient. The patient agreed to proceed with the procedure and signed the consent. IV was started, and vital signs were stable. Patient was taken to the OR and time out was completed. The patient was placed in the prone position on procedure table and a pillow was placed under the abdomen to reduce lumbar lordosis. The lumbosacral area was prepped and draped in the usual sterile fashion.ere closely monitored during the procedure. Conscious sedation was used during the procedure to decrease patients anxiety. Vital signs was monitered during the entire procedure. Using anterior-posterior fluoroscopy, the L4-5 interlaminar space was identified and the skin over this site was marked and then infiltrated with 1% lidocaine subcutaneously. Subsequently, a 20-gauge Tuohy epidural needle was inserted and advanced toward the epidural space using the ``Loss of resistance technique and guided by AP and lateral fluoroscopy. The correct needle position in the epidural space was verified with the injection of 2 mL of the water soluble contrast dye Isovue 200 contrast and observing an excellent epidurogram with the epidural spread of the dye, after negative aspiration for blood and CSF and in the absence of paresthesias. Again after negative aspiration, a 6 ml mixture containing 40 mg of Depo-medrol , and 2 ml of preservative free Normal Saline, and 2 ml of preservative free lidocaine 1% solution was injected and a washout of epidurogram was seen. Needle was withdrawn intact, skin was cleansed, and bandages were applied. COMPLICATIONS: None DISPOSITION / PLANS: The patient was placed in a supine position and transferred to the recovery area in a stable condition for observation. There was no evidence of lower extremity motor or sensory deficit after the procedure. Patient was discharged from the recovery room after meeting discharge criteria. Home discharge instructions were given to the patient by the staff. The patient was reexamined prior to discharge. The patient will schedule a follow up in the clinic in 2-4 weeks.
[2021-04-17 11:10] VITALS: RESP 20
[2021-04-17 11:29] VITALS: BP 121/80; PULSE 59
--- NOTE | 2021-04-17 12:29 | FL ---
Fluoroscopy INDICATION: Pain FINDINGS: Fluoroscopy time: 1 seconds. Images obtained: 1. IMPRESSIONS: 1. Documentation of fluoroscopy.
== END 2021-04-17 11:25 | disposition home or self-care (01) ==
LOC: ORPAIN 09:53
PROVIDERS: ATTEND Specialist
DX: M51.36 Other intervertebral disc degeneration, lumbar region (principal); M48.061 Spinal stenosis, lumbar region without neurogenic claudication
CPT/HCPCS: 62323; J2250; J1030; J3010; Q9966; 99152

== ENCOUNTER → 2021-07-23 | Outpatient (CLI) | payer MEDICARE, BC ==
--- NOTE | 2021-07-24 04:36 | MR ---
EXAMINATION TYPE: MR hip RT wo con DATE OF EXAM: 07/23/2021 COMPARISON: None HISTORY: Bilateral hip pain with limited movement for 2 months Multiplanar multiecho imaging of the pelvis and right hip without contrast. The pelvic ring is intact. Proximal femurs are intact. There is no evidence of any significant hip hailey int effusion. Signal pattern is normal. There is no sign of avascular necrosis. There is no evidence of a pelvic mass. There is no evidence of a soft tissue mass. Muscle structures are fairly symmetric. There is no atrophy. Sacroiliac joints appear intact. IMPRESSION: Negative MR scan of the right hip. No evidence of avascular necrosis. No evidence of any significant arthritic disease.
== END | disposition home or self-care (01) ==
LOC: RADMRIMAIN 14:11
PROVIDERS: ATTEND Orthopaedic Surgery
DX: M25.551 Pain in right hip (principal); M25.552 Pain in left hip

== ENCOUNTER → 2021-10-08 | Outpatient (CLI) | payer MEDICARE, BC ==
--- NOTE | 2021-10-09 01:55 | MR ---
EXAMINATION TYPE: MR lumbar spine wo con DATE OF EXAM: 10/08/2021 COMPARISON: None HISTORY: NO prior, low back pain, for 6 months BLE radiculopathy, no trauma Multiplanar multiecho imaging of the lumbar spine without contrast. Lumbar vertebrae have normal alignment. Disc spaces are fairly normal. There is 30% anterior wedging of L1 vertebral body. No significant edema. This is consistent with an old compression fracture. There is no spinal stenosis. There is no lumbar paraspinal mass. Sacroiliac joints are intact. The feroz mbar neural foramina appear fairly well maintained. IMPRESSION: Old L1 compression fracture. No evidence of spinal stenosis. No acute fracture seen. Compression frac ture stable compared to CT scan of 10/30/2017. No lumbar disc herniation.
== END | disposition home or self-care (01) ==
LOC: RADMRIMAIN 12:56
PROVIDERS: ATTEND Orthopaedic Surgery
DX: M48.56XA Collapsed vertebra, not elsewhere classified, lumbar region, initial encounter for fracture (principal)
CPT/HCPCS: 72148

== ENCOUNTER 2021-10-14 10:07 | Inpatient (IN) | payer MEDICARE, BC ==
[2021-10-14] MEDS ORDERED: SODIUM CHLORIDE 0.9% 500 ML 500 ML IV STA (10:29)
[2021-10-14] MEDS ORDERED: MECLIZINE 12.5 MG TAB PO STA (10:29)
[2021-10-14] MEDS ORDERED: ONDANSETRON 4 MG/2 ML VIAL IVP STA (10:38)
[2021-10-14 10:55] LABS: Basophils % (A) 1 %; Eosinophils # (A) 0.1 k/uL (0-0.7); Eosinophils % (A) 2 %; HCT 47.7 % (39.0-53.0); HGB 16.1 gm/dL (13.0-17.5); Lymphocytes # (A) 1.3 k/uL (1.0-4.8); Lymphocytes % (A) 19 %; MCH 32.3 pg (25.0-35.0); MCHC 33.7 g/dL (31.0-37.0); MCV 95.9 fL (80.0-100.0); Mean Platelet Volume 9.4; Monocytes # (A) 0.5 k/uL (0-1.0); Monocytes % (A) 8 %; Neutrophils # (A) 4.8 k/uL (1.3-7.7); Neutrophils % (A) 70 %; Platelet Count 184 k/uL (150-450); RBC 4.98 m/uL (4.30-5.90); RDW 12.4 % (11.5-15.5); WBC 6.9 k/uL (3.8-10.6)
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
--- NOTE | 2021-10-14 11:08 | CT ---
EXAMINATION TYPE: CT brain wo con DATE OF EXAM: 10/14/2021 COMPARISON: CT brain 05/27/2019 HISTORY: Vertigo CT DLP: 1157.4 mGycm Automated exposure control for dose reduction was used. Helical imaging through the brain. FINDINGS: Mild inflammatory change present in the maxillary sinus on the left. Brain shows a similar appearance . Cortical atrophy is again noted. White matter low-attenuation is noted. There is no hemorrhage or h ydrocephalus. There are cerebral vascular calcifications. Orbits show symmetric appearance. IMPRESSION: NO ACUTE BRAIN ABNORMALITY.
[2021-10-14 11:32] LABS: Albumin 3.5 g/dL (3.5-5.0); Calcium 8.6 mg/dL (8.4-10.2); Total Bilirubin 2.2 mg/dL (0.2-1.3); Total Protein 6.3 g/dL (6.3-8.2)
--- NOTE | 2021-10-14 11:39 | XR ---
EXAMINATION TYPE: XR chest 1V portable DATE OF EXAM: 10/14/2021 COMPARISON: Chest x-ray 01/14/2018 HISTORY: Vertigo, dizziness TECHNIQUE: Single frontal view of the chest is obtained. FINDINGS: There is no focal air space opacity, pleural effusion, or pneumothorax seen. The cardiac silhouette size shows a prominent appearance, appearance may be accentuated by rotation, expiratory e xam. The osseous structures are intact. There are overlying cardiac leads. IMPRESSION: No acute process.
[2021-10-14] MEDS ORDERED: DIAZEPAM 5 MG/ML 2 ML INJ IVP STA (13:00)
[2021-10-14] MEDS ORDERED: LORazepam 0.5 MG TAB PO PRN (13:08)
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
[2021-10-14] MEDS ORDERED: ONDANSETRON 4 MG/2 ML VIAL IVP PRN (14:06)
[2021-10-14] MEDS ORDERED: ACETAMINOPHEN TAB 325 MG TAB PO PRN (14:06)
[2021-10-14] MEDS ORDERED: NALOXONE 0.4 MG/ML 1 ML VIAL IV PRN (14:06)
[2021-10-14] MEDS ORDERED: PROCHLORPERAZINE 5 MG TAB PO PRN (14:06)
[2021-10-14] MEDS ORDERED: MECLIZINE 25 MG TAB PO PRN (14:09)
--- NOTE | 2021-10-14 14:47 | CT ---
EXAMINATION TYPE: CT angio head neck DATE OF EXAM: 10/14/2021 COMPARISON: CT angiogram of the neck 03/15/2020 HISTORY: Vertigo CT DLP: 717.1 mGycm Automated exposure control for dose reduction was used. CONTRAST: Performed with IV Contrast, patient injected with 65 mL of Isovue 370. There are Three-D postprocessed images. Images obtained from the aortic arch to the vertex of the brain without IV contrast. There is normal branching pattern of the great vessels on the aortic arch. There is bilateral arteria l flow in the subclavian arteries. There is arterial flow in the common internal and external carotid arteries bilaterally. There is fairly wide patency of the carotid artery bifurcations. There is bila teral arterial flow in the vertebral arteries. There is arterial flow in the vertebral basilar artery system. There is no evidence of carotid or vertebral artery aneurysm or dissection. There is arterial flow in the anterior middle and posterior cerebral arteries. There is normal enhanc ement of the venous sinuses. There is no mass effect. There is no sign of intracranial aneurysm or ne ovascularity. No evidence of intracranial arterial stenosis. IMPRESSION: Negative CT angiogram of the brain. Negative CT angiogram of the neck. No adverse change compared to old exam.
[2021-10-14 17:39] LABS: Glucose,Whole Blood 138 mg/dL (75-99)
[2021-10-14] MEDS: lisinopriL 5 MG TAB PO SCH (18:09)
[2021-10-14 20:36] LABS: Glucose,Whole Blood 163 mg/dL (75-99)
[2021-10-14] MEDS: APIXABAN 5 MG TAB PO SCH (20:36)
[2021-10-14] MEDS: PROPAFENONE 150 MG TAB PO SCH (20:37)
[2021-10-14] MEDS ORDERED: TAMSULOSIN 0.4 MG CAP.ER.24H PO SCH (21:00)
[2021-10-15 02:01] LABS: Glucose,Whole Blood 133 mg/dL (75-99)
[2021-10-15] MEDS: PROPAFENONE 150 MG TAB PO SCH ×2 (07:18→20:44)
[2021-10-15] MEDS: ASPIRIN 81 MG PO SCH (07:18)
[2021-10-15] MEDS: APIXABAN 5 MG TAB PO SCH ×2 (07:18→20:43)
[2021-10-15 07:49] LABS: Glucose,Whole Blood 137 mg/dL (75-99)
[2021-10-15] MEDS: MECLIZINE 25 MG TAB PO SCH ×3 (08:42→20:44)
[2021-10-15] MEDS: SYMBICORT 160-4.5 MCG INHALER INHALATION PRN (09:23)
[2021-10-15 09:52] LABS: Basophils # (A) 0.03 X 10*3/uL (0.00-0.10); Basophils % (A) 0.6 %; Eosinophils # (A) 0.13 X 10*3/uL (0.04-0.35); Eosinophils % (A) 2.5 %; HCT 44.1 % (39.6-50.0); HGB 14.2 g/dL (13.0-17.0); Immature Grans, Automated 0.2 %; Lymphocytes # (A) 1.58 X 10*3/uL (0.90-5.00); Lymphocytes % (A) 30.1 %; MCH 30.5 pg (27.0-32.0); MCHC 32.2 g/dL (32.0-37.0); MCV 94.8 fL (80.0-97.0); Mean Platelet Volume 12.2 fL (9.5-12.2); Monocytes # (A) 0.62 X 10*3/uL (0.20-1.00); Monocytes % (A) 11.8 %; NRBC Per 100 WBC 0 /100 WBCS (0.0-0.0); Neutrophils # (A) 2.88 X 10*3/uL (1.80-7.70); Neutrophils % (A) 54.8 %; Platelet Count 184 X 10*3/uL (140-440); RBC 4.65 X 10*6/uL (4.40-5.60); RDW 12.4 % (11.5-14.5); WBC 5.25 X 10*3/uL (4.50-10.00)
[2021-10-15 10:30] LABS: African American GFR (CKD) 74.1 (60.0-200.0); Anion Gap 9.7 mmol/L (10.00-18.00); Blood Urea Nitrogen 16.5 mg/dL (9.0-27.0); Calcium 9.2 mg/dL (8.7-10.3); Carbon Dioxide 26.3 mmol/L (20.0-27.5); Magnesium 2.1 mg/dL (1.5-2.4); Potassium 4.6 mmol/L (3.5-5.5)
[2021-10-15 12:00] LABS: Glucose,Whole Blood 215 mg/dL (75-99)
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
[2021-10-15] MEDS ORDERED: SODIUM CHLORIDE 0.9% 1,000 ML IV ONE (14:15)
--- NOTE | 2021-10-15 14:42 | P.PN ---
<Wojciech Miles - Last Filed: 10/15/21 14:26> Subjective Progress Note Date: 10/15/21 Hospital course: Patient is a very pleasant 76-year-old male with a past medical history of hypertension, hyperlipidemia, nnl-aonmqwu-bppolmqqj diabetes mellitus, atrial fibrillation with history of PE on anticoagulation with Eliquis, vertigo, GERD, and BPH. Patient presented to the emergency department with a chief complaint of dizziness/lightheadedness. Patient reported symptoms began approximately 24 hours prior to arrival and are improved with sitting or lying down and worsened with any movements. Patient was seen and fully evaluated in the emergency department. He was started on aspirin and meclizine. CT head was completed which was negative for acute intracranial process. CTA head and neck was ne gative. EKG showing normal sinus rhythm at 64 bpm with no noted T-wave or ST abnormalities. MRI brain also completed and pending results. Neurology consulted and evaluated patient in clearing him of acute neurological event recommending medical management. Physical exam: Patient was seen and fully evaluated at the bedside this morning. He reports dizziness/lightheadedness has resolved with sitting and lying but returns with any movement. Orthostatic vitals completed and were positive for orthostatic hypotension. Order is placed to discontinue Flomax and administer 1 L bolus of 0.9% normal saline. We will attempt to ambulate patient status post completion of bolus, if no improvement, will place order for echocardiogram and consult to cardiology. At rest patient denies having any headache, lightheadedness, dizziness, changes in his vision or hearing, tinnitus, chest pain or palp itations, shortness of breath, nausea, vomiting, or experiencing any numbness/tingling/weakness in his extremities. He reports with movement he experiences dizziness/lightheadedness along with nausea but denies any other associated factors at that time. Morning labs reviewed and stable with CBC and BMP unremarkable. Vital signs reviewed and stable. General: Nontoxic, no distress and appears stated age. Derm: Skin warm and dry, normal coloration for ethnicity. Head: Atraumatic, normocephalic and symmetric. Eyes: EOMs intact, no lid lag, and anicteric sclera Mouth: no lip lesions, mucus membranes moist Cardiovascular: regular rate and rhythm with normal S1S2, no murmur, positive posterior tibial pulses bilaterally, and cap refill < 2 seconds. Lungs: Respirations even, regular, and unlabored on room air. Lungs CTA bilaterally, no rhonchi, no rales, no wheezing, and no accessory muscle usage. Abdominal: soft, nontender to palpation, no guarding, no appreciable organomegaly Ext: ROM intact. No gross muscle atrophy, no edema, no contractures Neuro: Speech clear, face symmetrical and CN II-XII grossly intact with no noted focal neuro deficits Psych: Alert and oriented to person, place, time, and situation. Appropriate and pleasant affect. Assessment and Plan of Care: Orthostatic hypotension -Stop Flomax as orthostatic hypotension is an adverse reaction of this medicat ion. -Administer 1 L bolus -Monitor orthostatic vitals every shift -Telemetry monitoring -If no improvement after 1 L bolus will order echocardiogram and consult cardiology. Hypertension -Monitor vital signs and continue daily medication regimen. Hyperlipidemia -Continue daily medication regimen with atorvastatin. BPH -Hold Flomax at this time secondary to orthostatic hypotension being an adverse reaction of this medication. Paroxysmal atrial fibrillation with history of PE on anticoagulation with Eliquis -Patient confirms that he is on Rythmol at home 150 mg twice a day. -Patient to continue with Rythmol for rate control and anticoagulation Eliquis. Type II jgw-naeddqs-ufznoszhb diabetes mellitus. -Hold oral hypoglycemic medications and place patient on glycemic protocol with NovoLog sliding scale. CODE STATUS: Full code DVT prophylaxis: Eliquis Discussed with: Patient and RN Anticipated discharge date: Later today versus Tomorrow morning Anticipated discharge place: Home A total of 40 minutes was spent on the care of this complex patient more than 50% of the time was spent in counseling and care coordination. Objective - Vital Signs Vital signs: Vital Signs Temp 97.5 F L 10/15/21 07:00 Pulse 61 10/15/21 09:29 Resp 16 10/15/21 07:00 BP 132/72 10/15/21 09:29 Pulse Ox 96 10/15/21 07:00 Intake & Output 10/14/21 10/15/21 10/15/21 18:59 06:59 18:59 Weight 107.955 kg Other: # Voids 0 - Labs CBC & Chem 7: 10/15/21 06:42 10/15/21 06:42 Labs: Abnormal Lab Results - Last 24 Hours (Table) 10/14/21 10/14/21 10/14/21 Range/Units 11:05 17:38 20:35 Sodium 136 L (137-145) mmol/L Chloride 109 H (98-107) mmol/L Glucose 182 H (74-99) mg/dL POC Glucose (mg/dL) 138 H 163 H (75-99) mg/dL Total Bilirubin 2.2 H (0.2-1.3) mg/dL Alkaline Phosphatase 37 L (38-126) U/L 10/15/21 10/15/21 Range/Units 01:58 07:48 Sodium (137-145) mmol/L Chloride (98-107) mmol/L Glucose (74-99) mg/dL POC Glucose (mg/dL) 133 H 137 H (75-99) mg/dL Total Bilirubin (0.2-1.3) mg/dL Alkaline Phosphatase (38-126) U/L <Jarod Grove - Last Filed: 10/15/21 18:15> Subjective I reviewed the documentation as provided by the BAKARI above, who is the original author of this note. I agree with the documented assessment and plan, with the following changes: Orthostatic Hypotension - add AM cortisol Objective - Vital Signs Vital signs: Vital Signs Temp 97.7 F 10/15/21 15:00 Pulse 65 10/15/21 15:00 Resp 16 10/15/21 15:00 BP 123/74 10/15/21 15:00 Pulse Ox 94 L 10/15/21 15:00 Intake & Output 10/14/21 10/15/21 10/15/21 18:59 06:59 18:59 Weight 107.955 kg Other: # Voids 0 2 - Labs CBC & Chem 7: 10/15/21 06:42 10/15/21 06:42 Labs: Abnormal Lab Results - Last 24 Hours (Table) 10/14/21 10/15/21 10/15/21 Range/Units 20:35 01:58 06:42 Anion Gap 9.70 L (10.00-18.00) mmol/L Glucose 147 H (70-110) mg/dL POC Glucose (mg/dL) 163 H 133 H (75-99) mg/dL 10/15/21 10/15/21 10/15/21 Range/Units 07:48 11:58 17:28 Anion Gap (10.00-18.00) mmol/L Glucose (70-110) mg/dL POC Glucose (mg/dL) 137 H 215 H 152 H (75-99) mg/dL
--- NOTE | 2021-10-15 15:11 | MR ---
MR brain without contrast HISTORY: Vertigo, dizziness Multiplanar multisequence imaging through the brain, correlation to CT brain dated 10/07/2021 There is no restricted diffusion to suggest subacute ischemia. Cortical atrophy is again noted. Confl uent and scattered periventricular, pericallosal, subcortical hyperintensities are present on inversi on recovery T2-weighted sequences, the largest in the left frontal lobe on axial image 21 measures 8 to 9 mm. There are expected vascular flow voids. Cerebellopontine angles, corpus callosum, pituitary, cervical medullary junction are normal. The orbits show symmetric appearance. There is no hemorrhage or hydrocephalus. There is inflammatory change present within the ethmoid air cells. IMPRESSION: Age-related changes of atrophy and chronic small vessel ischemia. Mild sinus disease.
[2021-10-15 17:30] LABS: Glucose,Whole Blood 152 mg/dL (75-99)
[2021-10-15] MEDS: INSULIN ASPART (NovoLOG) 100 UNIT/ML VIAL SQ SCH ×2 (17:31→20:42)
[2021-10-15 19:35] LABS: Glucose,Whole Blood 169 mg/dL (75-99)
[2021-10-15] MEDS ORDERED: CALCIUM CARBONATE 500 MG CHEWABLE PO PRN (20:22)
[2021-10-15] MEDS: lisinopriL 5 MG TAB PO SCH (20:44)
[2021-10-15] MEDS: GABAPENTIN 300 MG CAP PO SCH (20:44)
[2021-10-15] MEDS: ATORVASTATIN 10 MG TAB PO SCH (20:44)
[2021-10-16 02:09] LABS: Glucose,Whole Blood 126 mg/dL (75-99)
[2021-10-16 08:09] LABS: Glucose,Whole Blood 141 mg/dL (75-99)
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
[2021-10-16] MEDS: INSULIN ASPART (NovoLOG) 100 UNIT/ML VIAL SQ SCH ×4 (10:12→22:05)
[2021-10-16] MEDS: PROPAFENONE 150 MG TAB PO SCH ×2 (10:13→22:06)
[2021-10-16] MEDS: MECLIZINE 25 MG TAB PO SCH (10:14)
[2021-10-16] MEDS: MONTELUKAST 10 MG TAB PO SCH (10:14)
[2021-10-16] MEDS: ASPIRIN 81 MG PO SCH (10:14)
[2021-10-16] MEDS: APIXABAN 5 MG TAB PO SCH ×2 (10:15→22:06)
--- NOTE | 2021-10-16 10:34 | ECHOF ---
Referral Reason:intractable dizziness MEASUREMENTS -------- HEIGHT: 182.9 cm WEIGHT: 108.0 kg BP: RVIDd: 2.9 cm (< 3.3) IVSd: 1.4 cm (0.6 - 1.1) LVIDd: 4.5 cm (3.9 - 5.3) LVPWd: 1.9 cm (0.6 - 1.1) IVSs: 1.5 cm LVIDs: 4.0 cm LVPWs: 1.8 cm LA Diam: 4.6 cm (2.7 - 3.8) Ao Diam: 3.2 cm (2.0 - 3.7) AV Cusp: 1.8 cm (1.5 - 2.6) LA Diam: 4.7 cm (2.7 - 3.8) MV EXCURSION: 23.427 mm (> 18.000) MV EF SLOPE: 63 mm/s (70 - 150) EPSS: 0.8 cm MV E Lazaro: 0.30 m/s MV DecT: 255 ms MV A Lazaro: 0.69 m/s MV E/A Ratio: 0.43 RAP: 5.00 mmHg RVSP: 14.00 mmHg FINDINGS -------- Sinus rhythm. This was a technically adequate study. The left ventricular size is normal. There is mild concentric left ventricular hypertrophy. Overa ll left ventricular systolic function is low-normal with, an EF between 50 - 55 %. The right ventricle is normal in size. The left atrial size is normal. The right atrial size is normal. There is mild aortic valve sclerosis. There is no evidence of aortic regurgitation. Mild mitral regurgitation is present. Mild tricuspid regurgitation present. Right ventricular systolic pressure is normal at < 35 mmHg. There is no pulmonic regurgitation present. Echo free space indicative of a pericardial fat pad. CONCLUSIONS -------- 1. The left ventricular size is normal. 2. There is mild concentric left ventricular hypertrophy. 3. Overall left ventricular systolic function is low-normal with, an EF between 50 - 55 %. 4. The right ventricle is normal in size. 5. The left atrial size is normal. 6. The right atrial size is normal. 7. There is mild aortic valve sclerosis. 8. Mild mitral regurgitation is present. 9. Mild tricuspid regurgitation present. 10. Echo free space indicative of a pericardial fat pad. [employer]: Jada Rodríguez RDCS
[2021-10-16 12:09] LABS: Basophils # (A) 0.03 X 10*3/uL (0.00-0.10); Basophils % (A) 0.5 %; Eosinophils # (A) 0.17 X 10*3/uL (0.04-0.35); Eosinophils % (A) 3.1 %; HCT 43.6 % (39.6-50.0); HGB 14.2 g/dL (13.0-17.0); Immature Grans, Automated 0.2 %; Lymphocytes # (A) 1.57 X 10*3/uL (0.90-5.00); Lymphocytes % (A) 28.6 %; MCHC 32.6 g/dL (32.0-37.0); MCV 95.2 fL (80.0-97.0); Mean Platelet Volume 12.3 fL (9.5-12.2); Monocytes # (A) 0.73 X 10*3/uL (0.20-1.00); Monocytes % (A) 13.3 %; NRBC Per 100 WBC 0 /100 WBCS (0.0-0.0); Neutrophils # (A) 2.97 X 10*3/uL (1.80-7.70); Neutrophils % (A) 54.3 %; Platelet Count 187 X 10*3/uL (140-440); RBC 4.58 X 10*6/uL (4.40-5.60); RDW 12.3 % (11.5-14.5); WBC 5.48 X 10*3/uL (4.50-10.00)
[2021-10-16 12:29] LABS: Glucose,Whole Blood 135 mg/dL (75-99)
[2021-10-16 12:41] LABS: BUN/Creat Ratio 12.57 Ratio (12.00-20.00); Blood Urea Nitrogen 13.7 mg/dL (9.0-27.0); Calcium 9.1 mg/dL (8.7-10.3); Carbon Dioxide 24.3 mmol/L (20.0-27.5); Chloride 107 mmol/L (96-109); Glucose 155 mg/dL (70-110); Magnesium 1.9 mg/dL (1.5-2.4); Non-African American GFR(CKD) 64.7 (60.0-200.0); Potassium 4.2 mmol/L (3.5-5.5); Sodium 142 mmol/L (135-145)
--- NOTE | 2021-10-16 17:00 | P.PN ---
Subjective Progress Note Date: 10/16/21 The patient seen at bedside and he continues to feel dizzy with resting or with movement but mostly with movement. He denies any other neurological deficit. Primary team is consulted cardiology team. Objective - Vital Signs Vital signs: Vital Signs Temp 98.3 F 10/16/21 15:00 Pulse 57 L 10/16/21 16:43 Resp 16 10/16/21 15:00 BP 160/86 10/16/21 15:00 Pulse Ox 95 10/16/21 15:00 Intake & Output 10/15/21 10/16/21 10/16/21 18:59 06:59 18:59 Intake Total 118 Balance 118 Intake: Oral 118 Other: # Voids 2 1 3 - Exam GENERAL: The patient is lying in bed and is not in acute distress. NEUROLOGICAL: Higher mental function: The patient is awake, alert, oriented to self, place and time. Patient is following commands. No aphasia and no neglect. Cranial nerves: The pupils are round, equal and reactive to light and accommodation. Visual ray are full to confrontation throughout. Extraocular movement is intact no nystagmus is noted. Facial sensation is normal to touch throughout. The facial strength is normal throughout. Hearing is severely decreased bilaterally to hand rub. Tongue is midline and moved [id number] w ithout any difficulty. No dysarthria is noted. Shoulder shrug is normal bilaterally. Motor: Gait: Is patient was feeling dizzy upon standing but was not swaying toward right or left. The strength is 5 over 5 throughout. Normal tone and bulk. Cerebellum: Normal finger to nose heel to chin bilaterally. Sensation: Sensation is normal to touch throughout. Reflexes (right/left): 2+ throughout. Plantars are downgoing bilaterally. WORK-UP: CT of the head is reported as no acute brain abnormality. I personally reviewed the CT of the head and there is no acute or subacute ischemia and there is no at the proximal hemorrhage CT angiography of the head and neck was reported as negative MR the brain was completed and that reported as age-related changes of atrophy and chronic small vessel ischemia. Mild sinus disease. I personally reviewed the MRI the brain and there is no acute or subacute ischemia. 2-D echo was reported as left ventricle stalled function is low normal with e jection fraction 50-55%. Mild concentric Lipitor hypertrophy. Left atrial size is normal. - Labs CBC & Chem 7: 03/01/22 07:14 10/16/21 07:14 Labs: Abnormal Lab Results - Last 24 Hours (Table) 10/15/21 10/15/21 10/16/21 Range/Units 17:28 19:32 02:08 MPV (9.5-12.2) fL Glucose (70-110) mg/dL POC Glucose (mg/dL) 152 H 169 H 126 H (75-99) mg/dL 10/16/21 10/16/21 10/16/21 Range/Units 07:14 07:14 08:08 MPV 12.3 H (9.5-12.2) fL Glucose 155 H (70-110) mg/dL POC Glucose (mg/dL) 141 H (75-99) mg/dL 10/16/21 Range/Units 12:28 MPV (9.5-12.2) fL Glucose (70-110) mg/dL POC Glucose (mg/dL) 135 H (75-99) mg/dL Assessment and Plan Assessment: Vertigo is due to orthostatic hypotension. Positive for orthostatic hypotension Essential hypertension Hyperlipidemia Diabetes mellitus [id number] History of pulmonary embolism on anticoagulation Chronic hearing loss Remote tobacco use Plan: MR the brain was completed and that reported as age-related changes of atrophy a nd chronic small vessel ischemia. Mild sinus disease. I personally reviewed the MRI the brain and there is no acute or subacute ischemia. Regarding the orthostatic hypertension we'll defer the management to the primary and Cardiology team. Cardiology has placed him on compression stocking. PT and OT is consulted We'll defer the rest of medical management to the primary team The plan is discussed with the patient and primary team. There is no further neurological work-up. Barrie Moise M.D. Neuro-hospitalist Time with Patient: Less than 30
[2021-10-16 17:42] LABS: Glucose,Whole Blood 176 mg/dL (75-99)
--- NOTE | 2021-10-16 17:57 | P.PN ---
Subjective Progress Note Date: 10/16/21 Hospital course: Patient is a very pleasant 76-year-old male with a past medical history of hypertension, hyperlipidemia, [id number] diabetes mellitus, atrial fibrillation with history of PE on anticoagulation with Eliquis, vertigo, GERD, and BPH. Patient presented to the emergency department with a chief complaint of dizziness/lightheadedness. Patient reported symptoms began approximately 24 hours prior to arrival and are improved with sitting or lying down and worsened with any movements. Patient was seen and fully evaluated in the emergency department. He was started on aspirin and meclizine. CT head was completed which was negative for acute intracranial process. CTA head and neck was negative. EKG showing normal sinus rhythm at 64 bpm with no noted T-wave or ST abnormalities. MRI brain also completed and pending results. Neurology consulted and evaluated patient in clearing him of acute neurological event recommending medical management. Physical exam: Patient was seen and fully evaluated at the bedside this morning. He reports dizziness/lightheadedness is now persistent at rest while lying, sitting, and upon standing. Echocardiogram showing preserved EF between 50 and 55% with no significant valvular abnormalities. Morning labs reviewed and unremarkable. Magnesium, TSH, and cortisol normal findings. Cardiology evaluated recommending patient to continue lisinopril, Eliquis, and atorvastatin. Pt failed outpatient treatment of intractable dizziness along with continued orthostatic hypotension. PT/OT to evaluate. Vital signs reviewed and stable. General: Nontoxic, no distress and appears stated age. Derm: Skin warm and dry, normal coloration for ethnicity. Head: Atraumatic, normocephalic and symmetric. Eyes: EOMs intact, no lid lag, and anicteric sclera Mouth: no lip lesions, mucus membranes moist Cardiovascular: regular rate and rhythm with normal S1S2, no murmur, positive posterior tibial pulses bilaterally, and cap refill < 2 seconds. Lungs: Respirations even, regular, and unlabored on room air. Lungs CTA claribel aterally, no rhonchi, no rales, no wheezing, and no accessory muscle usage. Abdominal: soft, nontender to palpation, no guarding, no appreciable organomegaly Ext: ROM intact. No gross muscle atrophy, no edema, no contractures Neuro: Speech clear, face symmetrical and CN II-XII grossly intact with no noted focal neuro deficits Psych: Alert and oriented to person, place, time, and situation. Appropriate and pleasant affect. Assessment and Plan of Care: Intractable dizziness at rest and with movement Orthostatic hypotension -Discontinue Flomax . -Fall precautions -Monitor orthostatic vitals every shift -Telemetry monitoring -Neurology following -Cardiology following. Hypertension -Monitor vital signs and continue daily medication regimen. Hyperlipidemia -Continue daily medication regimen with atorvastatin. BPH -Hold Flomax at this time secondary to orthostatic hypotension being an adverse reaction of this medication. Paroxysmal atrial fibrillation with history of PE on anticoagulation with Eliquis -Patient confirms that he is on Rythmol at home 150 mg twice a day. -Patient to continue with Rythmol for rate control and anticoagulation Eliquis. Type II [id number] diabetes mellitus. -Hold oral hypoglycemic medications and place patient on glycemic protocol with NovoLog sliding scale. CODE STATUS: Full code DVT prophylaxis: Eliquis Discussed with: Patient and RN Anticipated discharge date: Clinical course to determine Anticipated discharge place: Home A total of 40 minutes was spent on the care of this complex patient more than 50% of the time was spent in counseling and care coordination. Objective - Vital Signs Vital signs: Vital Signs Temp 97.7 F 10/16/21 07:00 Pulse 76 10/16/21 10:20 Resp 16 10/16/21 07:00 BP 165/90 10/16/21 07:00 Pulse Ox 96 10/16/21 11:45 Intake & Output 10/15/21 10/16/21 10/16/21 18:59 06:59 18:59 Intake Total 118 Balance 118 Intake: Oral 118 Other: # Voids 2 1 1 - Labs CBC & Chem 7: 10/16/21 07:14 10/16/21 07:14 Labs: Abnormal Lab Results - Last 24 Hours (Table) 10/15/21 10/15/21 10/16/21 Range/Units 17:28 19:32 02:08 MPV (9.5-12.2) fL Glucose (70-110) mg/dL POC Glucose (mg/dL) 152 H 169 H 126 H (75-99) mg/dL 10/16/21 10/16/21 10/16/21 Range/Units 07:14 07:14 08:08 MPV 12.3 H (9.5-12.2) fL Glucose 155 H (70-110) mg/dL POC Glucose (mg/dL) 141 H (75-99) mg/dL 10/16/21 Range/Units 12:28 MPV (9.5-12.2) fL Glucose (70-110) mg/dL POC Glucose (mg/dL) 135 H (75-99) mg/dL
[2021-10-16 20:51] LABS: Glucose,Whole Blood 145 mg/dL (75-99)
[2021-10-16] MEDS: SYMBICORT 160-4.5 MCG INHALER INHALATION PRN (20:57)
[2021-10-16] MEDS: ATORVASTATIN 10 MG TAB PO SCH (22:06)
[2021-10-16] MEDS: lisinopriL 5 MG TAB PO SCH (22:06)
[2021-10-16] MEDS: GABAPENTIN 300 MG CAP PO SCH (22:06)
[2021-10-17 02:07] LABS: Glucose,Whole Blood 140 mg/dL (75-99)
[2021-10-17 07:35] LABS: Glucose,Whole Blood 137 mg/dL (75-99)
[2021-10-17] MEDS: SYMBICORT 160-4.5 MCG INHALER INHALATION PRN ×2 (08:27→19:47)
[2021-10-17] MEDS: INSULIN ASPART (NovoLOG) 100 UNIT/ML VIAL SQ SCH ×4 (10:05→23:30)
[2021-10-17] MEDS: ASPIRIN 81 MG PO SCH (10:06)
[2021-10-17] MEDS: PROPAFENONE 150 MG TAB PO SCH ×2 (10:06→19:33)
[2021-10-17] MEDS: MONTELUKAST 10 MG TAB PO SCH (10:07)
[2021-10-17] MEDS: APIXABAN 5 MG TAB PO SCH ×2 (10:07→19:32)
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
[2021-10-17 12:28] LABS: Glucose,Whole Blood 197 mg/dL (75-99)
--- NOTE | 2021-10-17 16:22 | P.PN ---
<Wojciech Miles - Last Filed: 10/17/21 16:11> Subjective Progress Note Date: 10/17/21 Hospital course: Patient is a very pleasant 76-year-old male with a past medical history of hypertension, hyperlipidemia, rxc-kmimmqf-tdaqrgrvx diabetes mellitus, atrial fibrillation with history of PE on anticoagulation with Eliquis, vertigo, GERD, and BPH. Patient presented to the emergency department with a chief complaint of dizziness/lightheadedness. Patient reported symptoms began approximately 24 hours prior to arrival and are improved with sitting or lying down and worsened with any movements. Patient was seen and fully evaluated in the emergency department. He was started on aspirin and meclizine. CT head was completed which was negative for acute intracranial process. CTA head and neck was ne gative. EKG showing normal sinus rhythm at 64 bpm with no noted T-wave or ST abnormalities. MRI brain showing age-related changes of atrophy and chronic small vessel ischemia but negative for acute intracranial process. Neurology consulted and evaluated patient and clearing him of acute neurological event recommending medical management. Echocardiogram showing preserved EF between 50 and 55% with no significant valvular abnormalities. TSH 1.930 and cortisol normal findings is well 7.7. Physical exam: Patient was seen and fully evaluated at the bedside this morning. He reports dizziness/lightheadedness continues to be persistent at rest while lying, sitting, and worsens upon standing. Patient denies having any headache, changes in his vision or hearing, tinnitus, sinus congestion or drainage, chest pain, palpitations, shortness of breath, or experiencing any numbness/tingling/weakn ess in his extremities. Called primary care provider, Dr. Metzger's office regarding med rec after discussion with patient and some inconsistencies. Medications confirmed with the exception of Neurontin, PCP states patient is no longer on this medication. Lisinopril also increased his patient continues to have resting hypertension we will continue to monitor orthostatic vitals this he seemed to be improving slightly since discontinuation of Flomax, treatment of resting hypertension with increase of lisinopril, and discussed with RN importance of MAZIN aldana. Neurontin also discontinued after above discussion with PCP. Vital signs reviewed and stable. General: Nontoxic, no distress and appears stated age. Derm: Skin warm and dry, normal coloration for ethnicity. Head: Atraumatic, normocephalic and symmetric. Eyes: EOMs intact, no lid lag, and anicteric sclera Mouth: no lip lesions, mucus membranes moist Cardiovascular: regular rate and rhythm with normal S1S2, no murmur, positive posterior tibial pulses bilaterally, and cap refill < 2 seconds. Lungs: Respirations even, regular, and unlabored on room air. Lungs CTA bilaterally, no rhonchi, no rales, no wheezing, and no accessory muscle usage. Abdominal: soft, nontender to palpation, no guarding, no appreciable organome esperanza Ext: ROM intact. No gross muscle atrophy, no edema, no contractures Neuro: Speech clear, face symmetrical and CN II-XII grossly intact with no noted focal neuro deficits Psych: Alert and oriented to person, place, time, and situation. Appropriate and pleasant affect. Assessment and Plan of Care: Intractable dizziness at rest and with movement Orthostatic hypotension -Discontinue Flomax and Neurontin. -Called primary care provider, Dr. Metzger's office regarding med rec after discussion with patient and some inconsistencies. Medications confirmed with the exception of Neurontin, PCP states patient is no longer on this medication. Medication discontinued at this time. -Fall precautions -Monitor orthostatic vitals every shift -Telemetry monitoring -Neurology following -Cardiology following. -MAZIN hose -Treatment of resting hypertension by increasing lisinopril to 10 mg nightly. Hypertension -Monitor vital signs and continue daily medication regimen. Hyperlipidemia -Continue daily medication regimen with atorvastatin. BPH -Hold Flomax at this time secondary to orthostatic hypotension being an adverse reaction of this medication. Paroxysmal atrial fibrillation with history of PE on anticoagulation with Eliquis -Continue Rythmol 150 mg twice a day and anticoagulation with Eliquis. Type II rvy-ipmmbll-jxowetvbh diabetes mellitus. -Hold oral hypoglycemic medications and place patient on glycemic protocol with NovoLog sliding scale. CODE STATUS: Full code DVT prophylaxis: Eliquis Discussed with: Patient and RN Anticipated discharge date: Clinical course to determine Anticipated discharge place: Home vs SNF A total of 35 minutes was spent on the care of this complex patient more than 50% of the time was spent in counseling and care coordination. Objective - Vital Signs Vital signs: Vital Signs Temp 98.0 F 10/17/21 07:45 Pulse 58 L 10/17/21 07:45 Resp 18 10/17/21 07:45 BP 159/85 10/17/21 07:45 Pulse Ox 98 10/17/21 07:45 Intake & Output 10/16/21 10/17/21 10/17/21 18:59 06:59 18:59 Intake Total 118 180 Balance 118 180 Intake: Oral 118 180 Other: # Voids 3 1 - Labs CBC & Chem 7: 10/16/21 07:14 10/16/21 07:14 Labs: Abnormal Lab Results - Last 24 Hours (Table) 10/16/21 10/16/21 10/16/21 Range/Units 07:14 07:14 12:28 MPV 12.3 H (9.5-12.2) fL Glucose 155 H (70-110) mg/dL POC Glucose (mg/dL) 135 H (75-99) mg/dL 10/16/21 10/16/21 10/17/21 Range/Units 17:40 20:50 02:06 MPV (9.5-12.2) fL Glucose (70-110) mg/dL POC Glucose (mg/dL) 176 H 145 H 140 H (75-99) mg/dL 10/17/21 Range/Units 07:33 MPV (9.5-12.2) fL Glucose (70-110) mg/dL POC Glucose (mg/dL) 137 H (75-99) mg/dL <Bernice Trinidad A - Last Filed: 10/17/21 17:38> Subjective Wojciech Miles NP rendered care for this patient independently, reviewed the findings and plan as documented in the note above. I did not physically speak with or examine the patient on this date. Objective - Vital Signs Vital signs: Vital Signs Temp 98.0 F 10/17/21 14:47 Pulse 62 10/17/21 14:47 Resp 18 10/17/21 14:47 BP 146/85 10/17/21 14:47 Pulse Ox 95 10/17/21 14:47 Intake & Output 10/16/21 10/17/21 10/17/21 18:59 06:59 18:59 Intake Total 118 360 Balance 118 360 Intake: Oral 118 360 Other: # Voids 3 1 1 - Labs CBC & Chem 7: 10/16/21 07:14 10/16/21 07:14 Labs: Abnormal Lab Results - Last 24 Hours (Table) 10/16/21 10/16/21 10/17/21 Range/Units 17:40 20:50 02:06 POC Glucose (mg/dL) 176 H 145 H 140 H (75-99) mg/dL 10/17/21 10/17/21 Range/Units 07:33 12:26 POC Glucose (mg/dL) 137 H 197 H (75-99) mg/dL
[2021-10-17 17:45] LABS: Glucose,Whole Blood 139 mg/dL (75-99)
[2021-10-17] MEDS: ATORVASTATIN 10 MG TAB PO SCH (19:33)
[2021-10-17 20:39] LABS: Glucose,Whole Blood 199 mg/dL (75-99)
[2021-10-17] MEDS ORDERED: lisinopriL 10 MG TAB PO SCH (21:00)
[2021-10-17 23:28] LABS: Glucose,Whole Blood 171 mg/dL (75-99)
[2021-10-18 02:04] LABS: Glucose,Whole Blood 169 mg/dL (75-99)
[2021-10-18 07:52] LABS: Glucose,Whole Blood 129 mg/dL (75-99)
[2021-10-18] MEDS: SYMBICORT 160-4.5 MCG INHALER INHALATION PRN ×2 (08:06→19:45)
[2021-10-18 08:24] LABS: HCT 49.2 % (39.0-53.0); HGB 16.1 gm/dL (13.0-17.5); MCH 31.8 pg (25.0-35.0); MCHC 32.8 g/dL (31.0-37.0); Mean Platelet Volume 9.3; Platelet Count 195 k/uL (150-450); RBC 5.07 m/uL (4.30-5.90); RDW 12.4 % (11.5-15.5)
[2021-10-18 08:41] LABS: ALT 20 U/L (4-49); AST 22 U/L (17-59); African American GFR (CKD) 74 (>60 ml/min/1.73 sqM); Albumin 3.9 g/dL (3.5-5.0); Albumin/Globulin Ratio 1.3; Alkaline Phosphatase 40 U/L (38-126); Anion Gap 2 mmol/L; Blood Urea Nitrogen 16 mg/dL (9-20); Calcium 9.5 mg/dL (8.4-10.2); Carbon Dioxide 33 mmol/L (22-30); Chloride 103 mmol/L (98-107); Glucose 163 mg/dL (74-99); Magnesium 1.8 mg/dL (1.6-2.3); Non-African American GFR(CKD) 64 (>60 ml/min/1.73 sqM); Potassium 4.9 mmol/L (3.5-5.1); Sodium 138 mmol/L (137-145); Total Bilirubin 1.8 mg/dL (0.2-1.3); Total Protein 6.9 g/dL (6.3-8.2)
[2021-10-18] MEDS: INSULIN ASPART (NovoLOG) 100 UNIT/ML VIAL SQ SCH ×4 (09:12→20:47)
[2021-10-18] MEDS: MONTELUKAST 10 MG TAB PO SCH (09:15)
[2021-10-18] MEDS: PROPAFENONE 150 MG TAB PO SCH ×2 (09:15→20:47)
[2021-10-18] MEDS: ASPIRIN 81 MG PO SCH (09:15)
[2021-10-18] MEDS: APIXABAN 5 MG TAB PO SCH ×2 (09:15→20:47)
[2021-10-18 11:44] LABS: Glucose,Whole Blood 179 mg/dL (75-99)
--- NOTE | 2021-10-18 12:15 | P.PN ---
Subjective Progress Note Date: 10/18/21 The patient is seen at bedside and is accompanied by his who continues to have dizziness while laying flat or standing up but mostly standing up. He continues to have positive Orthostatic vitals. Most recent vital is a supine blood pressure 167/89 with a heart rate of 54, sitting is 117/72 with a heart rate of 59 and standing is 105/65 with a heart rate of 59. He is on compression stocking and his Lisnopril was discontinued. Objective - Vital Signs Vital signs: Vital Signs Temp 97.4 F L 10/18/21 07:42 Pulse 54 L 10/18/21 07:42 Resp 18 10/18/21 07:42 BP 167/89 10/18/21 07:42 Pulse Ox 94 L 10/18/21 07:42 Intake & Output 10/17/21 10/18/21 10/18/21 18:59 06:59 18:59 Intake Total 360 500 240 Balance 360 500 240 Intake: Oral 360 500 240 Other: # Voids 3 1 - Exam GENERAL: The patient is lying in bed and is not in acute distress. NEUROLOGICAL: Higher mental function: The patient is awake, alert, oriented to self, place and time. Patient is following commands. No aphasia and no neglect. Cranial nerves: The pupils are round, equal and reactive to light and accommodation. Visual ray are full to confrontation throughout. Extraocular movement is intact no nystagmus is noted. Facial sensation is normal to touch t hroughout. The facial strength is normal throughout. Hearing is severely decreased bilaterally to hand rub. Tongue is midline and moved [id number] without any difficulty. No dysarthria is noted. Shoulder shrug is normal bilaterally. Motor: Gait: Is patient was feeling dizzy upon standing but was not swaying toward right or left. The strength is 5 over 5 throughout. Normal tone and bulk. Cerebellum: Normal finger to nose heel to chin bilaterally. Sensation: Sensation is normal to touch throughout. Reflexes (right/left): 2+ throughout. Plantars are downgoing bilaterally. WORK-UP: CT of the head is reported as no acute brain abnormality. I personally reviewed the CT of the head and there is no acute or subacute ischemia and there is no at the proximal hemorrhage CT angiography of the head and neck was reported as negative MR the brain was completed and that reported as age-related changes of atrophy and chronic small vessel ischemia. Mild sinus disease. I personally reviewed the MRI the brain and there is no acute or subacute ischemia. 2-D echo was reported as left ventricle stalled function is low normal with ejection fraction 50-55%. Mild concentric Lipitor hypertrophy. Left atrial size is normal. - Labs CBC & Chem 7: 10/18/21 07:54 10/18/21 07:54 Labs: Abnormal Lab Results - Last 24 Hours (Table) 10/17/21 10/17/21 10/17/21 Range/Units 12:26 17:44 20:37 Carbon Dioxide (22-30) mmol/L Glucose (74-99) mg/dL POC Glucose (mg/dL) 197 H 139 H 199 H (75-99) mg/dL Total Bilirubin (0.2-1.3) mg/dL 10/17/21 10/18/21 10/18/21 Range/Units 23:26 02:02 07:40 Carbon Dioxide (22-30) mmol/L Glucose (74-99) mg/dL POC Glucose (mg/dL) 171 H 169 H 129 H (75-99) mg/dL Total Bilirubin (0.2-1.3) mg/dL 10/18/21 10/18/21 Range/Units 07:54 11:39 Carbon Dioxide 33 H (22-30) mmol/L Glucose 163 H (74-99) mg/dL POC Glucose (mg/dL) 179 H (75-99) mg/dL Total Bilirubin 1.8 H (0.2-1.3) mg/dL Assessment and Plan Assessment: Orthostatic hypotension Vertigo is due to orthostatic hypotension. Essential hypertension Hyperlipidemia Diabetes mellitus [id number] History of pulmonary embolism on anticoagulation Chronic hearing loss Remote tobacco use Plan: MR the brain was completed and that reported as age-related changes of atrophy and chronic small vessel ischemia. Mild sinus disease. I personally reviewed the MRI the brain and there is no acute or subacute ischemia. Regarding the orthostatic hypertension we'll defer the management to the primary and Cardiology team. Cardiology has placed him on compression stocking and stopped Lisinopril. PT and OT is consulted On fall precaution Patient most recent hemoglobin A1c 6.7 on 12/18/2020 We'll defer the rest of medical management to the primary team The plan is discussed with the patient and primary team. There is no further neurological work-up. Barrie Moise M.D. Neuro-hospitalist Time with Patient: Less than 30
[2021-10-18] MEDS ORDERED: COSYNTROPIN 0.25 MG VIAL IVP ONE (12:30)
--- NOTE | 2021-10-18 12:35 | P.PN ---
Subjective This is a pleasant 76-year-old male past medical history significant for hypertension, dyslipidemia, type 2 diabetes, paroxysmal atrial fibrillation on Eliquis, previous history of pulmonary embolism, former smoker, history of concussion 8 years ago, states he has had cauterization of his nerves in the back of his neck. He follows in the office with Dr. Kelly. We have been asked to see in consultation for dizziness. Patient presents emergency department on 10/14/2021 with complaints of dizziness. Friday he states he woke up at 5AM, he stood up and felt ok but as he was walking down the stairs he felt the "room spinning" and lightheaded. He had trouble with his balance but did not fall. He states he sat in a chair for sometime with no improvement, he had an episode of emesis and then decided to lay down in the bed. This lasted about 30 minutes. He went to the ER for further evaluation. He states his symptoms come on with lying flat with pressure on the back of his head, when moving head side to side and also with standing and walking he feels "whoozy" when he stands and walks to the bathroom. However, even when lying down he states his dizziness continues. On admission, patient with positive orthostatic vital signs. His lisinopril was decreased to 5mg nightly and his orthostatics have slightly improved but still positive and he states his symptoms have not improved. 10/18/2021 Patient seen and examined at bedside, He had increased dizziness overnight and this morning. He was given 10mg Lisinopril last night. He has worsening dizziness with lying in bed and when standing. And having symptoms of lightheadedness when standing. He continues to be orthostatic, but have improved from admission but still positive Telemetry reviewed patient sinus mechanism, heart rate 4860. He's currently maintained on lisinopril 10 mg daily, Eliquis 5 mg twice a day, atorvastatin PHYSICAL EXAMINATION Supine blood pressure 167/89, heart rate 59 Sitting blood pressure 117/72, heart rate 59 Standing blood pressure 105/65, heart rate 54 CONSTITUTIONAL: No apparent distress. HEENT: Neck supple No JVD. CHEST EXAMINATION: Lungs are clear to auscultation. No chest wall tenderness is noted on palpation or with deep breathing. HEART EXAMINATION: Regular rate and rhythm. S1, S2 heard. No murmurs, gallops or rub. ABDOMEN: Soft, nontender. Positive bowel sounds. EXTREMITIES: 2+ peripheral pulses, no lower extremity edema and no calf tenderness. NEUROLOGIC EXAMINATION: Patient is awake, alert and oriented x3. ASSESSMENT Symptoms of dizziness with nausea and episode of emesis, patient also with symptoms of dizziness when lying flat and when moving his head side to side. Orthostatic hypotension Hypertension Dyslipidemia Type 2 diabetes Paroxysmal atrial fibrillation on Eliquis Previous history of pulmonary embolism Former smoker PLAN He continues to be orthostatic but vital signs are improving Recommend Stop Lisinopril Recommend bilateral compression stockings Continue lisinopril at 5mg daily Continue Eliquis and statin Further recommendations based on clinical course Nurse practitioner note has been reviewed by physician. Signing provider agrees with the documented findings, assessment, and plan of care. Objective - Vital Signs Vital signs: Vital Signs Temp 97.4 F L 10/18/21 07:42 Pulse 54 L 10/18/21 07:42 Resp 18 10/18/21 07:42 BP 167/89 10/18/21 07:42 Pulse Ox 94 L 10/18/21 07:42 Intake & Output 10/17/21 10/18/21 10/18/21 18:59 06:59 18:59 Intake Total 360 500 240 Balance 360 500 240 Intake: Oral 360 500 240 Other: # Voids 3 1 - Labs CBC & Chem 7: 10/18/21 07:54 10/18/21 07:54 Labs: Abnormal Lab Results - Last 24 Hours (Table) 10/17/21 10/17/21 10/17/21 Range/Units 12:26 17:44 20:37 Carbon Dioxide (22-30) mmol/L Glucose (74-99) mg/dL POC Glucose (mg/dL) 197 H 139 H 199 H (75-99) mg/dL Total Bilirubin (0.2-1.3) mg/dL 10/17/21 10/18/21 10/18/21 Range/Units 23:26 02:02 07:40 Carbon Dioxide (22-30) mmol/L Glucose (74-99) mg/dL POC Glucose (mg/dL) 171 H 169 H 129 H (75-99) mg/dL Total Bilirubin (0.2-1.3) mg/dL 10/18/21 Range/Units 07:54 Carbon Dioxide 33 H (22-30) mmol/L Glucose 163 H (74-99) mg/dL POC Glucose (mg/dL) (75-99) mg/dL Total Bilirubin 1.8 H (0.2-1.3) mg/dL
--- NOTE | 2021-10-18 14:22 | P.PN ---
<Wojciech Miles - Last Filed: 10/18/21 14:08> Subjective Progress Note Date: 10/18/21 Hospital course: Patient is a very pleasant 76-year-old male with a past medical history of hypertension, hyperlipidemia, ano-yclyrov-rivcnlwxd diabetes mellitus, atrial fibrillation with history of PE on anticoagulation with Eliquis, vertigo, GERD, and BPH. Patient presented to the emergency department with a chief complaint of dizziness/lightheadedness. Patient reported symptoms began approximately 24 hours prior to arrival and are improved with sitting or lying down and worsened with any movements. Patient was seen and fully evaluated in the emergency department. He was started on aspirin and meclizine. CT head was completed which was negative for acute intracranial process. CTA head and neck was ne gative. EKG showing normal sinus rhythm at 64 bpm with no noted T-wave or ST abnormalities. MRI brain showing age-related changes of atrophy and chronic small vessel ischemia but negative for acute intracranial process. Neurology consulted and evaluated patient and clearing him of acute neurological event recommending medical management. Echocardiogram showing preserved EF between 50 and 55% with no significant valvular abnormalities. TSH 1.930 and cortisol normal findings is well 7.7. Physical exam: Patient was seen and fully evaluated at the bedside this morning. He continues to have significant dizziness/lightheadedness while at rest, sitting, and worsens upon standing. Patient continues to have significant drops in orthostatic vitals and moderate resting hypertension. We will rule out adrenal insufficiency by obtaining her cortisone level administering cosyntropin and repeating her cortisone level at 30 and 60 minutes. Cardiology has discontinued lisinopril. Morning labs reviewed and stable. Patient continues to deny headache, changes in vision or hearing, chest pain, palpitations, shortness of breath, or experiencing any numbness/tingling/weakness in his extremities. Vital signs reviewed and stable. General: Nontoxic, no distress and appears stated age. Derm: Skin warm and dry, normal coloration for ethnicity. Head: Atraumatic, normocephalic and symmetric. Eyes: EOMs intact, no lid lag, and anicteric sclera Mouth: no lip lesions, mucus membranes moist Cardiovascular: regular rate and rhythm with normal S1S2, no murmur, positive posterior tibial pulses bilaterally, and cap refill < 2 seconds. Lungs: Respirations even, regular, and unlabored on room air. Lungs CTA bilaterally, no rhonchi, no rales, no wheezing, and no accessory muscle usage. Abdominal: soft, nontender to palpation, no guarding, no appreciable organomegaly Ext: ROM intact. No gross muscle atrophy, no edema, no contractures Neuro: Speech clear, face symmetrical and CN II-XII grossly intact with no noted focal neuro deficits Psych: Alert and oriented to person, place, time, and situation. Appropriate and pleasant affect. Assessment and Plan of Care: Intractable dizziness at rest and with movement Orthostatic hypotension -Discontinued Flomax and Neurontin. -Cortisol level and administer Cosyntopin -Fall precautions -Monitor orthostatic vitals every shift -Telemetry monitoring -Neurology following -Cardiology following. -MAZIN hose -Treatment of resting hypertension by increasing lisinopril to 10 mg nightly. Hypertension -Monitor vital signs. Cardiology discontinued lisinopril. Hyperlipidemia -Continue daily medication regimen with atorvastatin. BPH -Hold Flomax at this time secondary to orthostatic hypotension being an adverse reaction of this medication. Paroxysmal atrial fibrillation with history of PE on anticoagulation with Eliquis -Continue Rythmol 150 mg twice a day and anticoagulation with Eliquis. Type II yqx-hrudpyc-dyegrrwbj diabetes mellitus. -Hold oral hypoglycemic medications and place patient on glycemic protocol with NovoLog sliding scale. CODE STATUS: Full code DVT prophylaxis: Eliquis Discussed with: Patient and RN Anticipated discharge date: Clinical course to determine Anticipated discharge place: Home vs SNF A total of 35 minutes was spent on the care of this complex patient more than 50% of the time was spent in counseling and care coordination. Objective - Vital Signs Vital signs: Vital Signs Temp 97.4 F L 10/18/21 07:42 Pulse 54 L 10/18/21 07:42 Resp 18 10/18/21 07:42 BP 167/89 10/18/21 07:42 Pulse Ox 94 L 10/18/21 07:42 Intake & Output 10/17/21 10/18/21 10/18/21 18:59 06:59 18:59 Intake Total 360 500 240 Balance 360 500 240 Intake: Oral 360 500 240 Other: # Voids 3 1 - Labs CBC & Chem 7: 10/18/21 07:54 10/18/21 07:54 Labs: Abnormal Lab Results - Last 24 Hours (Table) 10/17/21 10/17/2122 Range/Units 12:26 17:44 20:37 Carbon Dioxide (22-30) mmol/L Glucose (74-99) mg/dL POC Glucose (mg/dL) 197 H 139 H 199 H (75-99) mg/dL Total Bilirubin (0.2-1.3) mg/dL 10/17/21 10/18/21 10/18/21 Range/Units 23:26 02:02 07:40 Carbon Dioxide (22-30) mmol/L Glucose (74-99) mg/dL POC Glucose (mg/dL) 171 H 169 H 129 H (75-99) mg/dL Total Bilirubin (0.2-1.3) mg/dL 10/18/21 Range/Units 07:54 Carbon Dioxide 33 H (22-30) mmol/L Glucose 163 H (74-99) mg/dL POC Glucose (mg/dL) (75-99) mg/dL Total Bilirubin 1.8 H (0.2-1.3) mg/dL <Jarod Grove - Last Filed: 10/18/21 17:19> Subjective I reviewed the documentation as provided by the BAKARI above, who is the original author of this note. I agree with the documented assessment and plan, with the following changes: None Objective - Vital Signs Vital signs: Vital Signs Temp 97.6 F 10/18/21 13:58 Pulse 64 10/18/21 13:58 Resp 18 10/18/21 13:58 BP 157/86 10/18/21 13:58 Pulse Ox 96 10/18/21 16:00 Intake & Output 10/17/21 10/18/21 10/18/21 18:59 06:59 18:59 Intake Total 360 500 480 Balance 360 500 480 Intake: Oral 360 500 480 Other: # Voids 3 1 - Labs CBC & Chem 7: 10/18/21 07:54 10/18/21 07:54 Labs: Abnormal Lab Results - Last 24 Hours (Table) 10/17/21 10/17/21 10/17/21 Range/Units 17:44 20:37 23:26 Carbon Dioxide (22-30) mmol/L Glucose (74-99) mg/dL POC Glucose (mg/dL) 139 H 199 H 171 H (75-99) mg/dL Total Bilirubin (0.2-1.3) mg/dL 10/18/21 10/18/21 10/18/21 Range/Units 02:02 07:40 07:54 Carbon Dioxide 33 H (22-30) mmol/L Glucose 163 H (74-99) mg/dL POC Glucose (mg/dL) 169 H 129 H (75-99) mg/dL Total Bilirubin 1.8 H (0.2-1.3) mg/dL 10/18/21 10/18/21 Range/Units 11:39 17:06 Carbon Dioxide (22-30) mmol/L Glucose (74-99) mg/dL POC Glucose (mg/dL) 179 H 197 H (75-99) mg/dL Total Bilirubin (0.2-1.3) mg/dL
[2021-10-18] MEDS: diazePAM 5 MG TAB PO SCH ×2 (16:52→20:47)
[2021-10-18 17:08] LABS: Glucose,Whole Blood 197 mg/dL (75-99)
[2021-10-18] MEDS: SODIUM CHLORIDE TAB 1 GM TAB PO SCH ×2 (17:40→20:48)
[2021-10-18 20:12] LABS: Glucose,Whole Blood 222 mg/dL (75-99)
[2021-10-18] MEDS: lisinopriL 5 MG TAB PO SCH (20:47)
[2021-10-18] MEDS: ATORVASTATIN 10 MG TAB PO SCH (20:47)
[2021-10-19 02:50] LABS: Glucose,Whole Blood 131 mg/dL (75-99)
[2021-10-19 07:30] LABS: Glucose,Whole Blood 134 mg/dL (75-99)
[2021-10-19] MEDS: SYMBICORT 160-4.5 MCG INHALER INHALATION PRN ×2 (08:26→20:50)
[2021-10-19] MEDS: INSULIN ASPART (NovoLOG) 100 UNIT/ML VIAL SQ SCH ×4 (09:26→23:46)
[2021-10-19] MEDS: PROPAFENONE 150 MG TAB PO SCH ×2 (09:27→20:32)
[2021-10-19] MEDS: ASPIRIN 81 MG PO SCH (09:27)
[2021-10-19] MEDS: MONTELUKAST 10 MG TAB PO SCH (09:27)
[2021-10-19] MEDS: APIXABAN 5 MG TAB PO SCH ×2 (09:27→20:32)
[2021-10-19] MEDS: diazePAM 5 MG TAB PO SCH (09:27)
[2021-10-19] MEDS: SODIUM CHLORIDE TAB 1 GM TAB PO SCH ×3 (09:28→20:32)
[2021-10-19] MEDS ORDERED: diazePAM 5 MG TAB PO PRN (10:24)
--- NOTE | 2021-10-19 10:47 | P.PN ---
Subjective This is a pleasant 76-year-old male past medical history significant for hypertension, dyslipidemia, type 2 diabetes, paroxysmal atrial fibrillation on Eliquis, previous history of pulmonary embolism, former smoker, history of concussion 8 years ago, states he has had cauterization of his nerves in the back of his neck. He follows in the office with Dr. Kelly. We have been asked to see in consultation for dizziness. Patient presents emergency department on 10/14/2021 with complaints of dizziness. Friday he states he woke up at 5AM, he stood up and felt ok but as he was walking down the stairs he felt the "room spinning" and lightheaded. He had trouble with his balance but did not fall. He states he sat in a chair for sometime with no improvement, he had an episode of emesis and then decided to lay down in the bed. This lasted about 30 minutes. He went to the ER for further evaluation. He states his symptoms come on with lying flat with pressure on the back of his head, when moving head side to side and also with standing and walking he feels "whoozy" when he stands and walks to the bathroom. However, even when lying down he states his dizziness continues. On admission, patient with positive orthostatic vital signs. His lisinopril was decreased to 5mg nightly and his orthostatics have slightly improved but still positive and he states his symptoms have not improved. 10/19/2021 Patient seen and examined at bedside, He continues to have dizziness, slightly improved. He continues to be orthostatic, but have improved from admission but still positive Telemetry reviewed patient sinus mechanism, heart rate 4860. He's currently maintained on lisinopril 5 mg daily, Eliquis 5 mg twice a day, atorvastatin PHYSICAL EXAMINATION Vitals reviewed CONSTITUTIONAL: No apparent distress. HEENT: Neck supple No JVD. CHEST EXAMINATION: Lungs are clear to auscultation. No chest wall tenderness is noted on palpation or with deep breathing. HEART EXAMINATION: Regular rate and rhythm. S1, S2 heard. No murmurs, gallops or rub. ABDOMEN: Soft, nontender. Positive bowel sounds. EXTREMITIES: 2+ peripheral pulses, no lower extremity edema and no calf tenderness. NEUROLOGIC EXAMINATION: Patient is awake, alert and oriented x3. ASSESSMENT Symptoms of dizziness with nausea and episode of emesis, patient also with symptoms of dizziness when lying flat and when moving his head side to side. Orthostatic hypotension Hypertension Dyslipidemia Type 2 diabetes Paroxysmal atrial fibrillation on Eliquis Previous history of pulmonary embolism Former smoker PLAN He continues to be orthostatic but vital signs are improving Ok to start lisinopril 5mg daily Recommend bilateral compression stockings Continue Eliquis and statin We will follow the patient as needed. Follow up outpatient with Dr. Kelly Nurse practitioner note has been reviewed by physician. Signing provider agrees with the documented findings, assessment, and plan of care. Objective - Vital Signs Vital signs: Vital Signs Temp 97.9 F 10/19/21 07:52 Pulse 58 L 10/19/21 07:52 Resp 16 10/19/21 07:52 BP 144/82 10/19/21 07:52 Pulse Ox 94 L 10/19/21 07:52 Intake & Output 10/18/21 10/19/21 10/19/21 18:59 06:59 18:59 Intake Total 720 Balance 720 Intake: Oral 720 Other: # Voids 2 1 1 - Labs CBC & Chem 7: 10/18/21 07:54 10/18/21 07:54 Labs: Abnormal Lab Results - Last 24 Hours (Table) 10/18/21 10/18/21 10/18/21 Range/Units 11:39 17:06 20:10 POC Glucose (mg/dL) 179 H 197 H 222 H (75-99) mg/dL 10/19/21 10/19/21 Range/Units 02:49 07:29 POC Glucose (mg/dL) 131 H 134 H (75-99) mg/dL
[2021-10-19 12:19] LABS: Glucose,Whole Blood 175 mg/dL (75-99)
--- NOTE | 2021-10-19 14:18 | P.PN ---
<Wojciech Miles - Last Filed: 10/19/21 14:00> Subjective Progress Note Date: 10/19/21 Hospital course: Patient is a very pleasant 76-year-old male with a past medical history of hyp ertension, hyperlipidemia, hvw-bbmtdss-wgjvkjbxo diabetes mellitus, atrial fibrillation with history of PE on anticoagulation with Eliquis, vertigo, GERD, and BPH. Patient presented to the emergency department with a chief complaint of dizziness/lightheadedness. Patient reported symptoms began approximately 24 hours prior to arrival and are improved with sitting or lying down and worsened with any movements. Patient was seen and fully evaluated in the emergency department. He was started on aspirin and meclizine. CT head was completed which was negative for acute intracranial process. CTA head and neck was negative. EKG showing normal sinus rhythm at 64 bpm with no noted T-wave or ST abnormalities. MRI brain showing age-related changes of atrophy and chronic small vessel ischemia but negative for acute intracranial process. Neurology consulted and evaluated patient and clearing him of acute neurological event recommending medical management. Echocardiogram showing preserved EF between 50 and 55% with no significant valvular abnormalities. TSH 1.930 and cortisol normal findings is well 7.7. Physical exam: Patient was seen and fully evaluated at the bedside this morning. He reports slight improvement in dizziness/lightheadedness at rest after being started on Valium and sodium chloride tablets. Patient does continue to have significant positive orthostatic vitals. We will monitor for improvement after initiation of the sodium chloride tablets. Also resumed lisinopril for treatment of resting hypertension. Patient continues to deny headache, changes in vision or hearing, chest pain, palpitations, shortness of breath, or experiencing any numbness/tingling/weakness in his extremities. Case management working on arrangement for placement in vestibular rehab. Vital signs reviewed and stable. General: Nontoxic, no distress and appears stated age. Derm: Skin warm and dry, normal coloration for ethnicity. Head: Atraumatic, normocephalic and symmetric. Eyes: EOMs intact, no lid lag, and anicteric sclera Mouth: no lip lesions, mucus membranes moist Cardiovascular: regular rate and rhythm with normal S1S2, no murmur, positive posterior tibial pulses bilaterally, and cap refill < 2 seconds. Lungs: Respirations even, regular, and unlabored on room air. Lungs CTA bilaterally, no rhonchi, no rales, no wheezing, and no accessory muscle usage. Abdominal: soft, nontender to palpation, no guarding, no appreciable organomegaly Ext: ROM intact. No gross muscle atrophy, no edema, no contractures Neuro: Speech clear, face symmetrical and CN II-XII grossly intact with no noted focal neuro deficits Psych: Alert and oriented to person, place, time, and situation. Appropriate and pleasant affect. Assessment and Plan of Care: Intractable dizziness at rest and with movement Orthostatic hypotension -Discontinued Flomax and Neurontin. -Cosyntopin test completed, ruling out adrenal insufficiency as cause of orthostatic hypotension -Fall precautions remain in place -Patient continues to have positive orthostatic vitals -Telemetry monitoring -Neurology following -Cardiology following. -MAZIN hose and abdominal binder are in place -Sodium chloride tabs 1 g by mouth 3 times daily, follow-up with repeat sodium levels tomorrow morning. -Valium 5 mg when necessary for dizziness/lightheadedness. -Resumed lisinopril. -Case management arranging placement in vestibular rehab. Hypertension -Monitor vital signs. Continue lisinopril. Hyperlipidemia -Continue daily medication regimen with atorvastatin. BPH -Hold Flomax at this time secondary to orthostatic hypotension being an adverse reaction of this medication. Paroxysmal atrial fibrillation with history of PE on anticoagulation with Eliquis -Continue Rythmol 150 mg twice a day and anticoagulation with Eliquis. Type II jww-oezwbyf-mjkfhyuyc diabetes mellitus. -Hold oral hypoglycemic medications and place patient on glycemic protocol with NovoLog sliding scale. CODE STATUS: Full code DVT prophylaxis: Eliquis Discussed with: Patient and RN Anticipated discharge date: Clinical course to determine Anticipated discharge place: SNF for Vestibular rehab A total of 38 minutes was spent on the care of this complex patient more than 50% of the time was spent in counseling and care coordination. Objective - Vital Signs Vital signs: Vital Signs Temp 97.9 F 10/19/21 07:52 Pulse 58 L 10/19/21 07:52 Resp 16 10/19/21 07:52 BP 144/82 10/19/21 07:52 Pulse Ox 94 L 10/19/21 07:52 Intake & Output 10/18/21 10/19/21 10/19/21 18:59 06:59 18:59 Intake Total 720 Balance 720 Intake: Oral 720 Other: # Voids 2 1 1 - Labs CBC & Chem 7: 10/18/21 07:54 10/18/21 07:54 Labs: Abnormal Lab Results - Last 24 Hours (Table) 10/18/21 10/18/21 10/18/21 Range/Units 11:39 17:06 20:10 POC Glucose (mg/dL) 179 H 197 H 222 H (75-99) mg/dL 10/19/21 10/19/21 Range/Units 02:49 07:29 POC Glucose (mg/dL) 131 H 134 H (75-99) mg/dL <MaineJarod - Last Filed: 10/19/21 16:01> Subjective I reviewed the documentation as provided by the BAKARI above, who is the original author of this note. I agree with the documented assessment and plan, with the following changes: None Objective - Vital Signs Vital signs: Vital Signs Temp 97.9 F 10/19/21 13:44 Pulse 59 L 10/19/21 13:44 Resp 16 10/19/21 07:52 BP 151/80 10/19/21 13:44 Pulse Ox 95 10/19/21 15:37 Intake & Output 10/18/21 10/19/21 10/19/21 18:59 06:59 18:59 Intake Total 720 118 Balance 720 118 Intake: Oral 720 118 Other: # Voids 2 1 1 - Labs CBC & Chem 7: 10/18/21 07:54 10/18/21 07:54 Labs: Abnormal Lab Results - Last 24 Hours (Table) 10/18/21 10/18/21 10/19/21 Range/Units 17:06 20:10 02:49 POC Glucose (mg/dL) 197 H 222 H 131 H (75-99) mg/dL 10/19/21 10/19/21 Range/Units 07:29 12:18 POC Glucose (mg/dL) 134 H 175 H (75-99) mg/dL
[2021-10-19 17:30] LABS: Glucose,Whole Blood 165 mg/dL (75-99)
--- NOTE | 2021-10-19 18:23 | P.PN ---
Subjective Progress Note Date: 10/19/21 The patient seen at bedside and he feels about the same today compared to yesterday. His medications are being modified since she continues to have positive orthostatics. Objective - Vital Signs Vital signs: Vital Signs Temp 97.9 F 10/19/21 13:44 Pulse 59 L 10/19/21 13:44 Resp 16 10/19/21 07:52 BP 151/80 10/19/21 13:44 Pulse Ox 95 10/19/21 15:37 Intake & Output 10/18/21 10/19/21 10/19/21 18:59 06:59 18:59 Intake Total 720 236 Balance 720 236 Intake: Oral 720 236 Other: # Voids 2 1 1 - Exam GENERAL: The patient is lying in bed and is not in acute distress. NEUROLOGICAL: Higher mental function: The patient is awake, alert, oriented to self, place and time. Patient is following commands. No aphasia and no neglect. Cranial nerves: The pupils are round, equal and reactive to light and accommodation. Visual ray are full to confrontation throughout. Extraocular movement is intact no nystagmus is noted. Facial sensation is normal to touch throughout. The facial strength is normal throughout. Hearing is severely decreased bilaterally to hand rub. Tongue is midline and moved [id number] without any difficulty. No dysarthria is noted. Shoulder shrug is normal bilaterally. Motor: Gait: Is patient was feeling dizzy upon standing but was not swaying toward right or left. The strength is 5 over 5 throughout. Normal tone and bulk. Cerebellum: Normal finger to nose heel to chin bilaterally. Sensation: Sensation is normal to touch throughout. Reflexes (right/left): 2+ throughout. Plantars are downgoing bilaterally. WORK-UP: CT of the head is reported as no acute brain abnormality. I personally reviewed the CT of the head and there is no acute or subacute ischemia and there is no at the proximal hemorrhage CT angiography of the head and neck was reported as negative MR the brain was completed and that reported as age-related changes of atrophy and chronic small vessel ischemia. Mild sinus disease. I personally reviewed the MRI the brain and there is no acute or subacute ischemia. 2-D echo was reported as left ventricle stalled function is low normal with ejection fraction 50-55%. Mild concentric Lipitor hypertrophy. Left atrial size is normal. - Labs CBC & Chem 7: 10/18/21 07:54 10/18/21 07:54 Labs: Abnormal Lab Results - Last 24 Hours (Table) 10/18/21 10/19/21 10/19/21 Range/Units 20:10 02:49 07:29 POC Glucose (mg/dL) 222 H 131 H 134 H (75-99) mg/dL 10/19/21 10/19/21 Range/Units 12:18 17:29 POC Glucose (mg/dL) 175 H 165 H (75-99) mg/dL Assessment and Plan Assessment: Orthostatic hypotension Vertigo is due to orthostatic hypotension. Essential hypertension Hyperlipidemia Diabetes mellitus byl-zeaayfr-ueknowpjh History of pulmonary embolism on anticoagulation Chronic hearing loss Remote tobacco use Plan: MR the brain was completed and that reported as age-related changes of atrophy and chronic small vessel ischemia. Mild sinus disease. I personally reviewed the MRI the brain and there is no acute or subacute ischemia. Regarding the orthostatic hypertension we'll defer the management to the primary and Cardiology team. Cardiology has placed him on compression stocking and restart him on the Lisnopril 5 mg. Patient is on Salt Tab 1 g one tablet 3 times a day. PT and OT is consulted On fall precaution Patient most recent hemoglobin A1c 6.7 on 12/18/2020 We'll defer the rest of medical management to the primary team The plan is discussed with the patient and his nurse. There is no further neurological work-up. Neurology will sign off. Please reconsult if needed. Barrie Moise M.D. Neuro-hospitalist Time with Patient: Less than 30
[2021-10-19] MEDS: ATORVASTATIN 10 MG TAB PO SCH (20:31)
[2021-10-19] MEDS: lisinopriL 5 MG TAB PO SCH (20:33)
[2021-10-19 21:03] LABS: Glucose,Whole Blood 193 mg/dL (75-99)
[2021-10-20 02:17] LABS: Glucose,Whole Blood 158 mg/dL (75-99)
[2021-10-20 07:22] LABS: Glucose,Whole Blood 147 mg/dL (75-99)
[2021-10-20] MEDS: INSULIN ASPART (NovoLOG) 100 UNIT/ML VIAL SQ SCH (08:07)
[2021-10-20] MEDS: APIXABAN 5 MG TAB PO SCH (08:08)
[2021-10-20] MEDS: SODIUM CHLORIDE TAB 1 GM TAB PO SCH (08:08)
[2021-10-20] MEDS: ASPIRIN 81 MG PO SCH (08:08)
[2021-10-20] MEDS: PROPAFENONE 150 MG TAB PO SCH (08:08)
[2021-10-20] MEDS: MONTELUKAST 10 MG TAB PO SCH (08:08)
[2021-10-20 08:22] VITALS: RESP 16; TEMP 97.5
[2021-10-20 08:23] VITALS: BP 132/82; PULSE 70
[2021-10-20] MEDS: SYMBICORT 160-4.5 MCG INHALER INHALATION PRN (08:48)
[2021-10-20 11:53] LABS: HCT 47.9 % (39.6-50.0); HGB 15.5 g/dL (13.0-17.0); MCH 30.9 pg (27.0-32.0); MCHC 32.4 g/dL (32.0-37.0); MCV 95.4 fL (80.0-97.0); Mean Platelet Volume 12.5 fL (9.5-12.2); NRBC Per 100 WBC 0 /100 WBCS (0.0-0.0); Platelet Count 195 X 10*3/uL (140-440); RBC 5.02 X 10*6/uL (4.40-5.60); RDW 12.6 % (11.5-14.5); WBC 7.09 X 10*3/uL (4.50-10.00)
--- NOTE | 2021-10-20 16:02 | P.DS ---
Providers Date of admission: 10/16/21 11:28 Expected date of discharge: 10/20/21 Attending physician: Terrance Saha MD Consults: 10/14/21 14:06 Consult Physician Stat Consulting Provider: Barrie Moise Consult Reason/Comments: Vertigo Do you want consulting provider notified?: Already Contacted 10/15/21 16:09 Consult Physician Routine Consulting Provider: Beny Kelly Consult Reason/Comments: intractable dizziness Do you want consulting provider notified?: Yes Primary care physician: Carloz Metzger MD Hospital Course: Discharge Diagnosis: Persistent orthostatic hypotension Intractable dizziness Hypertension Dyslipidemia BPH Paroxysmal atrial fibrillation with history of pulmonary embolism on anticoagulation with Eliquis Yxb-kgyqdzm-zjtdjxwpj dependent type 2 diabetes mellitus Hospital Course: Patient is a 76-year-old male with hypertension, hyperlipidemia, zpi-ixcdufh-jssbwocfu diabetes mellitus, atrial fibrillation with history of PE on anticoagulation with Eliquis, vertigo, GERD, and BPH who presented to the emergency department for dizziness. In the emergency department the patient underwent an extensive evaluation. He was started on aspirin and meclizine. CT head was completed which was negative for acute intracranial process. CTA head and neck was negative. EKG showing normal sinus rhythm at 64 bpm with no noted T-wave or ST abnormalities. MRI brain showing age-related changes of atrophy and chronic small vessel ischemia but negative for acute intracranial process. Neurology consulted and evaluated patient and clearing him of acute neurological event recommending medical management. Echocardiogram showing preserved EF between 50 and 55% with no significant valvular abnormalities. TSH 1.930 and cortisol normal findings is well 7.7. Patient was started on salt tablets. Patient was assessed for adrenal insufficiency which was ruled out. He continued to have significant dizziness despite wearing compression stockings and an abdominal binder. He was evaluated by physical and occupational therapy and unfortunately did not meet the requirements for subacute rehabilitation. Patient was instructed that he needs to stand slowly and rest for 2-3 minutes before walking. He understands the importance of compliance as if he does not this could lead to falls. We recommend vestibular rehab which he will need to arrange with his outpatient physician. Medications include lisinopril, sodium chloride tablets. He was also given a prescription for compression stockings at 30 mmHg. He'll continue with his abdominal binder at home. He was discharged in stable condition. Follow-up: Dr. Addison for neurology Dr. Kelly for cardiology Dr. Kilgore for primary care Patient seen and examined at bedside. Continues to have dizziness with standing but overall feels as though he is improving. No chest pain or shortness of breath. We discussed the importance of vestibular rehab as listed above. Vital signs reviewed and stable. General: non toxic, no distress, appears at stated age Derm: warm, dry Head: atraumatic, normocephalic, symmetric Eyes: EOMI, no lid lag, anicteric sclera Mouth: no lip lesion, mucus membranes moist Cardiovascular: S1S2 reg, no murmur, positive posterior tibial pulse bilateral, Lungs: CTA bilateral, no rhonchi, no rales , no accessory muscle use Abdominal: soft, nontender to palpation, no guarding, no appreciable organomegaly Ext: no gross muscle atrophy, no edema, no contractures Neuro: CN II-XI grossly intact, no focal neuro deficits Psych: Alert, oriented, appropriate affect A total of 42 minutes of time were spent preparing this complex discharge summary . Patient Condition at Discharge: Stable Plan - Discharge Summary Discharge Rx Participant: No New Discharge Prescriptions: New Propafenone [Rythmol] 150 mg PO BID tab Sodium Chloride Tab 1 gm PO TID #90 tab Budesonide-Formot 160-4.5 Mcg [Symbicort 160-4.5 Mcg Inhaler] 2 puff INHALATION RT-BID PRN gm PRN Reason: Shortness Of Breath lisinopriL [Zestril] 5 mg PO HS #30 tab Continue Aspirin EC [Ecotrin Low Dose] 81 mg PO DAILY #30 tablet. glipiZIDE XL [Glucotrol XL] 5 mg PO DAILY Apixaban [Eliquis] 5 mg PO BID Lansoprazole [Prevacid] 30 mg PO DAILY Montelukast [Singulair] 10 mg PO DAILY Atorvastatin [Lipitor] 5 mg PO HS Fluticasone Nasal [place] [Flonase Nasal [place]] 1 spray EA NOSTRIL DAILY Ammonium Lactate Cream [Lac-Hydrin 12% Cream] 1 applic TOPICAL DAILY Discontinued LORazepam [Lorazepam] 0.5 mg PO DAILY PRN PRN Reason: Anxiety lisinopriL [Zestril] 10 mg PO DAILY Tamsulosin [Flomax] 0.4 mg PO HS Zolpidem [Ambien] 5 mg PO HS Gabapentin [Neurontin] 300 mg PO HS Cyclobenzaprine [Flexeril] 5 mg PO DAILY PRN PRN Reason: Muscle Spasm Discharge Medication List Aspirin EC [Ecotrin Low Dose] 81 mg PO DAILY #30 tablet. 10/22/17 [Rx] Apixaban [Eliquis] 5 mg PO BID 01/14/18 [History] glipiZIDE XL [Glucotrol XL] 5 mg PO DAILY 01/14/18 [History] Lansoprazole [Prevacid] 30 mg PO DAILY 12/20/20 [History] Ammonium Lactate Cream [Lac-Hydrin 12% Cream] 1 applic TOPICAL DAILY 10/14/21 [History] Atorvastatin [Lipitor] 5 mg PO HS 10/14/21 [History] Fluticasone Nasal [place] [Flonase Nasal [place]] 1 spray EA NOSTRIL DAILY 10/14/21 [History] Montelukast [Singulair] 10 mg PO DAILY 10/14/21 [History] Budesonide-Formot 160-4.5 Mcg [Symbicort 160-4.5 Mcg Inhaler] 2 puff INHALATION RT-BID PRN gm 10/20/21 [Rx] Propafenone [Rythmol] 150 mg PO BID tab 10/20/21 [Rx] Sodium Chloride Tab 1 gm PO TID #90 tab 10/20/21 [Rx] lisinopriL [Zestril] 5 mg PO HS #30 tab 10/20/21 [Rx] Follow up Appointment(s)/Referral(s): Beny Kelly MD [STAFF PHYSICIAN] - 2 Weeks Carloz Metzger MD [Primary Care Provider] - 1-2 days Jose Addison DO [STAFF PHYSICIAN] - 1 Week Patient Instructions/Handouts: Syncope in Older Adults (DC) Activity/Diet/Wound Care/Special Instructions: Activity: As tolerated Stay standing for 5 minutes before walking Diet: Regular Diet, Increased salt and fluid intake Special Instructions: Take Lisinopril at night Vestibular Rehab [facility] - [address] [address] Get Directions Hours FRIDAY: 07:30 AM - 06:00 PM FRIDAY: 07:00 AM - 06:00 PM FRIDAY: 07:00 AM - 06:00 PM FRIDAY: 07:00 AM - 06:00 PM FRIDAY: 07:00 AM - 06:00 PM Discharge Disposition: HOME SELF-CARE
[2021-10-20 21:29] LABS: African American GFR (CKD) 69.5 (60.0-200.0); Albumin/Globulin Ratio 1.65 (1.60-3.17); Anion Gap 16.7 mmol/L (10.00-18.00); BUN/Creat Ratio 15.69 Ratio (12.00-20.00); Blood Urea Nitrogen 18.2 mg/dL (9.0-27.0); Carbon Dioxide 21.4 mmol/L (20.0-27.5); Globulin 2.4 g/dL (1.6-3.3); Potassium 5.2 mmol/L (3.5-5.5); Total Bilirubin 1.3 mg/dL (0.30-1.20); Total Protein 6.4 g/dL (6.2-8.2)
== END 2021-10-20 10:29 | disposition home or self-care (01) | DRG 312 ==
LOC: EC 10:07 → 6NMEDSUR 15:01 → OBSVTOIN 10-16 11:28
PROVIDERS: ADMIT Internal Medicine; ATTEND Internal Medicine
DX: I95.1 Orthostatic hypotension (principal); E11.9 Type 2 diabetes mellitus without complications; E78.5 Hyperlipidemia, unspecified; F41.9 Anxiety disorder, unspecified; H91.90 Unspecified hearing loss, unspecified ear; I10 Essential (primary) hypertension; I44.4 Left anterior fascicular block; I48.0 Paroxysmal atrial fibrillation; J45.909 Unspecified asthma, uncomplicated; N40.0 Benign prostatic hyperplasia without lower urinary tract symptoms; Z79.01 Long term (current) use of anticoagulants; Z86.711 Personal history of pulmonary embolism; Z79.51 Long term (current) use of inhaled steroids; Z79.82 Long term (current) use of aspirin; Z79.899 Other long term (current) drug therapy; Z87.891 Personal history of nicotine dependence; Z79.84 Long term (current) use of oral hypoglycemic drugs
CPT/HCPCS: 36415; 70450; 70496; 70498; 70551; 71045; 80048; 80053; 82533; 83735; 84443; 84484; 85025; 85027; 93005; 93306; 94640; 94760; 96361; 96374; 96375; 99285

== ENCOUNTER → 2022-02-06 | Outpatient (CLI) | payer MEDICARE, BC ==
[2022-02-06 08:32] VITALS: BP 181/90; PULSE 51; RESP 18; TEMP 98
--- NOTE | 2022-02-06 08:41 | P.PAINPG ---
PQRS Measure Charge Sheet Comment: A 76 yr old male as a referral from Dr Clark with a history of severe and chronic low back pain secondary to lumbar degenerative disc diseases and lumbar spondylosis with facet arthropathy presents today for R hip pain x 1 year (on & off), radiating down his RLE, 10/10 in intensity of a sharp, stabbing and constant pain today. Pain is provoked by standing/walking for periods of 5 minutes or more. Pain is alleviated with PT last year for his lumbar spine, massage therapy 3 mo ago which was ineffective, repositioning, alternating ice & heat. Denies taking medications due to their ineffectiveness. Interventional pain procedures completed include LESI L4-L5 Patient is currently on DENIES Patient denies any side effects of the medication(s), denies excessive drowsiness or sleepiness, denies suicidal ideation and reports that the current pain medication is helping to control the pain and improve activities of daily living. Patient denies any motor or sensory deficits. Patient denies any fever or night sweats, denies any change in the bowel movements or urination. Physical Examination: -Constitutional: Cooperative. Not in acute distress . -HEENT: Neck is supple. No lymphadenopathy. No thyromegaly. Normal thyroid size. Eyes: No ptosis , no icterus, no photophobia. ENT: No auditory deficits. Normal oropharynx. No Thrush. - Respiratory: Chest clear to auscultations bilaterally. No wheezing. No rhonchi. - Cardiovascular: Regular rate and rhythm. S1 / S2 , no S3 , no S4. - Gastrointestinal: Abdomen soft no tenderness. Bowel sounds positive in all four quadrants. No organomegaly. - Genitourinary: Deferred. - Neurologic: Cranial nerve II to XII intact. No focal neurological deficits. - Psychatric: Alert & oriented x 3. Matching mood & appropriate affect. Judgment and insight intact. - Lymphatic: No Lymphadenopathy. - Musculoskeletal: Cervical spine: Muscle bulk/ tone/ strength in the bilateral upper extremities normal Vertebral body tenderness to palpation over Facet loading test positive Thoracic spine Muscle bulk / tone/ strength in the bilateral paraspinal muscles normal Vertebral body tender to palpation over Facet loading test positive Lumbar spine: Motor bulk/ tone/ strength lower extremities , thigh and legs : 5/5 Deep tendon reflexes : Normal Knee Jerk. Normal Ankle Jerk . Vertebral body tenderness to palpation over Lumbar Facet Loading Test positive Straight Leg Raise: positive at 30 degrees right side/ left side Gaenslen's Test positive Sacral spine : +R anterior acetabulofemoral joint TTP Severe tenderness over the Sacroiliac joint: right side / left side Range of motion: Flexion of the lumbar spine <60 degrees Range of motion: Extension of the lumbar spine <20 degrees Gaenslen's Test positive on the R Aníbal's Test positive Cristian test: positive right side / left side Thigh Thrust Test Sacral Thrust Test Assessment and plan: Chronic low back pain secondary to lumbar degenerative disc disease , lumbar spondylosis with facet arthropathy without myelopathy Recommendation of R intra articular hip injection. May need a series of injections, up to 3 within a six-month perio for optimal pain relief. Risks, benefits of procedure discussed and pt verbalized understanding. Denies anti coagulant use or medical history of diabetes. All patient questions answered MAPS reviewed and it was appropriate. I have spent 31 minutes on patient care today. Dr Bush was available by phone for the evaluation of this patient. The time was used to review the medical records including relevant urine studies and Prescription history (MAPs), review of the available imaging, evaluation and examination of the patient, coordination of care with the medical staff and if applicable referring physicians, as well as creation of the medical record - Pain Location Right Hip Non-Pharmacological Interventions: Heat, Massage PQRS Narrative: Smoking Status Former smoker Hx Alcohol Use () No Home Medications: Ambulatory Orders Aspirin EC [Ecotrin Low Dose] 81 mg PO DAILY #30 tablet. 10/22/17 Apixaban [Eliquis] 5 mg PO BID 01/14/18 glipiZIDE XL [Glucotrol XL] 5 mg PO DAILY 01/14/18 Lansoprazole [Prevacid] 30 mg PO DAILY 12/20/20 Ammonium Lactate Cream [Lac-Hydrin 12% Cream] 1 applic TOPICAL DAILY 10/14/21 Atorvastatin [Lipitor] 5 mg PO HS 10/14/21 Fluticasone Nasal Kent [Flonase Nasal Kent] 1 spray EA NOSTRIL DAILY 10/14/21 Montelukast [Singulair] 10 mg PO DAILY 10/14/21 Budesonide-Formot 160-4.5 Mcg [Symbicort 160-4.5 Mcg Inhaler] 2 puff INHALATION RT-BID PRN gm 10/20/21 Propafenone [Rythmol] 150 mg PO BID tab 10/20/21 Sodium Chloride Tab 1 gm PO TID #90 tab 10/20/21 lisinopriL [Zestril] 5 mg PO HS #30 tab 10/20/21 Controlled Substance Measures - Controlled Substance Measures Is patient prescribed a controlled substance at discharge?: No
== END ==
LOC: PNWHC3 07:48
PROVIDERS: ATTEND Specialist
DX: M51.36 Other intervertebral disc degeneration, lumbar region (principal); M47.816 Spondylosis without myelopathy or radiculopathy, lumbar region; G89.29 Other chronic pain; Z87.891 Personal history of nicotine dependence
CPT/HCPCS: 99211

== ENCOUNTER → 2022-03-08 | Outpatient (CLI) | payer MEDICARE, BC ==
--- NOTE | 2022-03-08 12:42 | XR ---
EXAMINATION TYPE: XR shoulder complete RT DATE OF EXAM: 03/08/2022 CLINICAL HISTORY: pain TECHNIQUE: Three views of the right shoulder are obtained. COMPARISON: None FINDINGS: There is no acute fracture/dislocation evident. The acromioclavicular and glenohumeral hailey int spaces appear moderately narrowed. The visualized ribs are intact and unremarkable. IMPRESSION: 1. There is no acute fracture or dislocation. ICD 10 NO FRACTURE, INITIAL EVALUATION
== END | disposition home or self-care (01) ==
LOC: RADXRMAIN 12:24
PROVIDERS: ATTEND Internal Medicine
DX: M25.511 Pain in right shoulder (principal)

== ENCOUNTER 2022-03-12 12:35 | Day surgery (SDC) | payer MEDICARE, BC ==
[2022-03-11 14:56] VITALS: BMI 32.8
[~2022-03-12 12:35] MED LIST changes: +LIDOCAINE 1% (10MG/ML) FOR IV START INTRADERMA PRN
[2022-03-12 13:35] VITALS: TEMP 98.4
[2022-03-12] MEDS ORDERED: IV FLUID CONTINUATION 1,000 ML IV ONE (13:35)
[2022-03-12] MEDS ORDERED: LACTATED RINGERS 1,000 ML IV ONE (13:35)
[2022-03-12 13:40] LABS: Glucose,Whole Blood 119 mg/dL (70-110)
[2022-03-12] MEDS ORDERED: MIDAZOLAM 2 MG/2 ML VIAL ONE (14:18)
[2022-03-12] MEDS ORDERED: ROPIVACAINE 5MG/ML 20ML VIAL ONE (14:18)
[2022-03-12] MEDS ORDERED: fentaNYL (PF) 50 MCG/ML 2 ML AMP ONE (14:18)
[2022-03-12] MEDS ORDERED: IOPAMIDOL M200 10 ML VIAL ONE (14:18)
[2022-03-12] MEDS ORDERED: methylPREDNISolone ACETATE 40 MG/ML 1 ML VIAL ONE (14:18)
--- NOTE | 2022-03-12 14:36 | P.PCN ---
Date of Procedure: 03/12/22 Procedure(s) Performed: Description of Procedure: PREOPERATIVE DIAGNOSIS:1- right hip arthalgia. 2- no spondyllosis with lumbar facet arthropathy. POSTOPERATIVE DIAGNOSIS: same PROCEDURES: Right intra-articular hip injection with fluoroscopy (fluoroscopy images available in the radiology Department ) ANESTHESIA: moderate sedation with Versed 1 mg and fentanyl 50 g IV. EBL: Minimal PROCEDURE INDICATION: The patient with right hip pain secondary to osteoarthritis who has been unresponsive to conservative therapy. No use of blood thinners. PROCEDURE DESCRIPTION / TECHNIQUE: The patient was seen and identified in the preoperative area. Risks, benefits, complications, and alternatives were discussed with the patient (including but not limited to incomplete pain relief, bleeding, infection, nerve damage, and allergies to medications), the patient agreed to proceed with the procedure and signed the consent after all questions were answered. Patient was taken to the OR and time out was completed to verify proper patient, position, laterality of pain, and allergies. Pt was placed in the Supine position. IV was started. Vital signs remained stable throughout the procedure. . The right Hip and the Groin area was prepped and draped in the usual sterile fashion. Vital signs were closely monitored during the procedure sedation was used during the procedure to decrease patients anxiety. Using AP fluoroscopy, the femoral neck was identified, marked, and localized with Ropivacaine 0.5 % . Subsequently, a 22 gauge 5-inch spinal needle was advanced guided by fluoroscopy to the 10 o'clock position on the femoral neck until the needle was felt entering the hip capsule. then Isoview 200 2 ml dye, was injected to demonstrate an arthrogram. After negative aspiration for CSF or heme and in the absence of paresthesias, the full 6 ml ml of the block solution containing Depo-Medrol 40 mg and 5 mL of preservative-free 0.5% Ropivacaine was injected. At the end of the procedure, the skin was cleansed and bandages were applied. COMPLICATIONS: No acute complications. DISPOSITION / PLANS: The patient was placed in a supine position and transferred to the recovery area in a stable condition for observation and was discharged from the recovery room after meeting discharge criteria. Home discharge instructions given to the patient by the staff..
[2022-03-12 14:43] VITALS: RESP 15
--- NOTE | 2022-03-12 14:53 | FL ---
EXAMINATION TYPE: FL guided pain mgmt statistic DATE OF EXAM: 03/12/2022 HISTORY: Fluoroscopy time 4 seconds of fluoroscopy provided. IMPRESSION: 1. Fluoroscopy time.
[2022-03-12 15:01] VITALS: BP 149/69; PULSE 54
== END 2022-03-12 15:12 | disposition home or self-care (01) ==
LOC: ORPAIN 12:35
PROVIDERS: ATTEND Specialist
DX: M70.61 Trochanteric bursitis, right hip (principal); M47.816 Spondylosis without myelopathy or radiculopathy, lumbar region
CPT/HCPCS: 20610; J2250; J1030; J3010; Q9966; J2795

== ENCOUNTER → 2022-03-28 | Outpatient (CLI) | payer MEDICARE, BC ==
[2022-03-28 09:02] VITALS: BP 154/85; PULSE 60; RESP 18; TEMP 97.9
--- NOTE | 2022-03-28 13:29 | P.PAINPG ---
PQRS Measure Charge Sheet Comment: A 76 yr old male with a history of severe and chronic R hip pain secondary to OA presents today for evaluation status post R intra-articular hip injection. Pt states he received 50% pain relief x 3 weeks s/p procedure. Pain level is currently at 4/10 in intensity, constant, sharp/ shooting towards R hip RLE. Pain is provoked as high as 6/10 in intensity w standing/ walking for periods of 15 min or more. Pain is alleviated with PT in Oct 2021, home guided exercises, massage therapy w last visit in January 2022, heat, ice, oral medications which were ineffective, repositioning, sitting and rest. Interventional pain procedures completed include R intra articular hip injection x 1 Patient is currently on DENIES Patient denies any side effects of the medication(s), denies excessive drowsiness or sleepiness, denies suicidal ideation and reports that the current pain medication is helping to control the pain and improve activities of daily living. Patient denies any motor or sensory deficits. Patient denies any fever or night sweats, denies any change in the bowel movements or urination. Physical Examination: -Constitutional: Cooperative. Not in acute distress . - Neurologic: Cranial nerve II to XII intact. No focal neurological deficits. - Psychatric: Alert & oriented x 3. Matching mood & appropriate affect. Judgment and insight intact. - Musculoskeletal: Cervical spine: Muscle bulk/ tone/ strength in the bilateral upper extremities normal Vertebral body tenderness to palpation over Spurling test positive Distraction test positive Facet loading test positive Thoracic spine Muscle bulk / tone/ strength in the bilateral paraspinal muscles normal Vertebral body tender to palpation over Facet loading test positive Lumbar spine: +R Acetabulofemoral joint TTP, +R Hip Abduction Motor bulk/ tone/ strength lower extremities , thigh and legs : 5/5 Deep tendon reflexes : Normal Knee Jerk. Normal Ankle Jerk . Vertebral body tenderness to palpation over Lumbar Facet Loading Test positive Straight Leg Raise: positive at 30 degrees right side/ left side Gaenslen's Test positive Sacral spine : Severe tenderness over the Sacroiliac joint: right side / left side Range of motion: Flexion of the lumbar spine <60 degrees Range of motion: Extension of the lumbar spine <20 degrees Gaenslen's Test positive Aníbal's Test positive Cristian test: positive right side / left side Thigh Thrust Test Sacral Thrust Test Assessment and plan: Chronic R hip pain secondary to arthropathy without myelopathy Recommendation of R hip intra articular injection #2. Pt may need a series of injections, up to 3 within a 6 mo period, for optimal pain relief. Risks, benefits of procedure discussed and pt verbalized understanding. Denies anticoagulant use or medical history of diabetes. All patient questions answered MAPS reviewed and it was appropriate. I have spent less than 30 minutes on patient care today. Dr Bush was available by phone for the evaluation of this patient. The time was used to review the medical records including relevant urine studies and Prescription history (MAPs), review of the available imaging, evaluation and examination of the patient, coordination of care with the medical staff and if applicable referring physicians, as well as creation of the medical record PQRS Narrative: Smoking Status Former smoker Hx Alcohol Use (MH) No Home Medications: Ambulatory Orders Aspirin EC [Ecotrin Low Dose] 81 mg PO DAILY #30 tablet. 10/22/17 Apixaban [Eliquis] 5 mg PO BID 01/14/18 Lansoprazole [Prevacid] 30 mg PO DAILY 12/20/20 Budesonide-Formot 160-4.5 Mcg [Symbicort 160-4.5 Mcg Inhaler] 2 puff INHALATION RT-BID PRN gm 10/20/21 Propafenone [Rythmol] 150 mg PO BID tab 10/20/21 Metoprolol Succinate (ER) [Toprol Xl] 12.5 mg PO HS 03/11/22 Pravastatin Sodium [Pravachol] 20 mg PO HS 03/11/22 Pregabalin [Lyrica] 50 mg PO HS 03/11/22 glipiZIDE 7 mg PO DAILY 03/11/22 Controlled Substance Measures - Controlled Substance Measures Is patient prescribed a controlled substance at discharge?: No
== END ==
LOC: PNWHC3 07:50
PROVIDERS: ATTEND Specialist
DX: M12.851 Other specific arthropathies, not elsewhere classified, right hip (principal); G89.29 Other chronic pain; Z87.891 Personal history of nicotine dependence
CPT/HCPCS: 99211

== ENCOUNTER → 2022-05-17 | Outpatient (CLI) | payer MEDICARE, BC ==
--- NOTE | 2022-05-17 13:05 | MR ---
EXAMINATION TYPE: MR shoulder RT wo con DATE OF EXAM: 05/17/2022 12:46 PM COMPARISON: NONE HISTORY: R shoulder pain TECHNIQUE: Multiplanar multispin echo imaging of the right shoulder was performed. FINDINGS: Rotator cuff : Thickening and heterogeneity of the supraspinatus tendon compatible chronic tendinopat hy. There is no complete or bursal/articular sided partial rotator cuff tear. The subscapularis const ituent of the rotator cuff is intact. Bursa: No bursal effusion or thickening is seen. Musculature: There is no muscular tear, contusion, or atrophy. Acromioclavicular joint : AC joint arthropathy moderate in degree. Subacromial spurring resulting in mild impingement. Osseous structures : There are no fractures or regions of abnormal bone marrow signal intensity. Long biceps tendon : The biceps tendon is normally situated within the bicipital groove. No complete or partial biceps tendon tear is present. Glenohumeral Joint fluid : There is no glenohumeral joint effusion. Cartilage and Bone : No focal hyaline cartilage defects are noted. No Hill-Sachs, reverse Hill-Sachs, or bony Bankart lesions are seen. Labrum : There are no SLAP or soft tissue Bankart lesions. No paralabral cysts are seen. OTHER FINDINGS : none IMPRESSION: 1. Chronic tendinopathy supraspinatus tendon secondary to mild impingement and subacromial spurring.
== END | disposition home or self-care (01) ==
LOC: RADMRIMAIN 11:27
PROVIDERS: ATTEND Internal Medicine
DX: M67.813 Other specified disorders of tendon, right shoulder (principal)

== ENCOUNTER 2022-05-23 08:45 | Day surgery (SDC) | payer MEDICARE, BC ==
[2022-05-21 15:47] VITALS: BMI 32.3
[2022-05-23 09:08] VITALS: RESP 16; TEMP 98.2
[2022-05-23] MEDS ORDERED: LACTATED RINGERS 1,000 ML IV ONE (09:23)
[2022-05-23] MEDS ORDERED: ROPIVACAINE 5 MG/ML 20 ML AMPULE ONE (09:39)
[2022-05-23] MEDS ORDERED: MIDAZOLAM 2 MG/2 ML VIAL ONE (09:39)
[2022-05-23] MEDS ORDERED: methylPREDNISolone ACETATE 40 MG/ML 1 ML VIAL ONE (09:39)
[2022-05-23] MEDS ORDERED: IOPAMIDOL M200 10 ML VIAL ONE (09:39)
[2022-05-23] MEDS ORDERED: fentaNYL (PF) 50 MCG/ML 2 ML AMP ONE (09:39)
--- NOTE | 2022-05-23 09:54 | P.PCN ---
Date of Procedure: 05/23/22 Procedure(s) Performed: PREOPERATIVE DIAGNOSIS:1- right hip arthalgia. 2- osteoarthritis right hip joint POSTOPERATIVE DIAGNOSIS: same PROCEDURES: Right intra-articular hip injection with fluoroscopy (fluoroscopy images available in the radiology Department ) ANESTHESIA: moderate sedation with Versed 1 mg and fentanyl 50 g IV. Sedation start time 0 941. Sedation stop time 0 951 EBL: Minimal PROCEDURE INDICATION: The patient with right hip pain secondary to osteoarthritis who has been unresponsive to conservative therapy. No use of blood thinners. PROCEDURE DESCRIPTION / TECHNIQUE: The patient was seen and identified in the preoperative area. Risks, benefits, complications, and alternatives were discussed with the patient (including but not limited to incomplete pain relief, bleeding, infection, nerve damage, and allergies to medications), the patient agreed to proceed with the procedure and signed the consent after all questions were answered. Patient was taken to the OR and time out was completed to verify proper patient, position, laterality of pain, and allergies. Pt was placed in the Supine position. IV was started. Vital signs remained stable throughout the procedure. . The right Hip and the Groin area was prepped and draped in the usual sterile fashion. Vital signs were closely monitored during the procedure sedation was used during the procedure to decrease patients anxiety. Using AP fluoroscopy, the femoral neck was identified, marked, and localized with Ropivacaine 0.5 % . Subsequently, a 22 gauge 5-inch spinal needle was advanced guided by fluoroscopy to the 10 o'clock position on the femoral neck until the needle was felt entering the hip capsule. then Isoview 200 3 ml dye, was injected to demonstrate an arthrogram. After negative aspiration for CSF or heme and in the absence of paresthesias, the full 6 ml ml of the block solution containing Depo-Medrol 40 mg and 5 mL of preservative-free 0.5% Ropivacaine was injected. At the end of the procedure, the skin was cleansed and bandages were applied. COMPLICATIONS: No acute complications. DISPOSITION / PLANS: The patient was placed in a supine position and transferred to the recovery area in a stable condition for observation and was discharged from the recovery room after meeting discharge criteria. Home discharge instructions given to the patient by the staff..
[2022-05-23] MEDS ORDERED: IV FLUID CONTINUATION 800 ML IV ONE (09:56)
--- NOTE | 2022-05-23 10:07 | FL ---
Intraoperative/procedural fluoroscopic services were provided for right hip large bursal injection. T otal fluoroscopy time is 9 seconds with a total of 1 submitted image to PACS. Please see the operativ e note for further details.
[2022-05-23 10:21] VITALS: BP 128/69; PULSE 60
== END 2022-05-23 10:29 | disposition home or self-care (01) ==
LOC: ORPAIN 08:45
PROVIDERS: ATTEND Specialist
DX: M16.11 Unilateral primary osteoarthritis, right hip (principal)
CPT/HCPCS: 20610; 77002; J2250; J1030; J3010; Q9966; J2795

== ENCOUNTER → 2022-06-13 | Outpatient (CLI) | payer MEDICARE, BC ==
[2022-06-13 08:45] VITALS: BP 170/79; PULSE 59; RESP 18; TEMP 98.1
--- NOTE | 2022-06-13 09:25 | P.PAINPG ---
PQRS Measure Charge Sheet Comment: A 77 yr old male with a history of severe and chronic R Hip pain x 1 yr secondary to degenerative joint diseases without myelopathy presents today for evaluation s/p R Intraarticular Hip injection. Pt states he experienced 75% pain relief x 3 wks s/p procedure. Pain level is currently at 2 /10 in intensit y, constant, localized in his R hip, achy in character without radiation. Pain is provoked by standing for periods of 15 min or more. Pain is alleviated with heat, ice, PT w massage x 6 wks in Spring 2021, medications (Tyl), sitting, repositioning and rest. Interventional pain procedures completed include R Hip injection Patient is currently on Tyl Patient denies any side effects of the medication(s), denies excessive drowsiness or sleepiness, denies suicidal ideation and reports that the current pain medication is helping to control the pain and improve activities of daily living. Patient denies any motor or sensory deficits. Patient denies any fever or night sweats, denies any change in the bowel movements or urination. Physical Examination: -Constitutional: Cooperative. Not in acute distress . - Neurologic: Cranial nerve II to XII intact. No focal neurological deficits. - Psychatric: Alert & oriented x 3. Matching mood & appropriate affect. Judgment and insight intact. - Musculoskeletal: Cervical spine: Muscle bulk/ tone/ strength in the bilateral upper extremities normal Vertebral body tenderness to palpation over Spurling test positive Distraction test positive Facet loading test positive Thoracic spine Muscle bulk / tone/ strength in the bilateral paraspinal muscles normal Vertebral body tender to palpation over Facet loading test positive Lumbar spine: Motor bulk/ tone/ strength lower extremities , thigh and legs : 5/5 Deep tendon reflexes : Normal Knee Jerk. Normal Ankle Jerk . Vertebral body tenderness to palpation over Lumbar Facet Loading Test positive Straight Leg Raise: positive at 30 degrees right side/ left side Gaenslen's Test positive Sacral spine : Severe tenderness over the Sacroiliac joint: right side / left side Range of motion: Flexion of the lumbar spine <60 degrees Range of motion: Extension of the lumbar spine <20 degrees Gaenslen's Test positive Aníbal's Test positive Cristian test: positive right side / left side Thigh Thrust Test Sacral Thrust Test Assessment and plan: Chronic R Hip pain secondary to degenerative joint disease without myelopathy Pt exhibited sufficient and substantial pain relief w procedure. He will continue home pain mgmt modalities to modify pain and may return to the clinic on an as needed basis. Risks, benefits of procedure discussed and pt verbalized understanding. Denies anticoagulant use or medical history of diabetes. All patient questions answered I have spent less than 30 minutes on patient care today. Dr Buhs was available by phone for the evaluation of this patient. The time was used to review the medical records including relevant urine studies and Prescription history (MAPs), review of the available imaging, evaluation and examination of the patient, coordination of care with the medical staff and if applicable referring physicians, as well as creation of the medical record PQRS Narrative: Smoking Status Former smoker Hx Alcohol Use (MH) No Home Medications: Ambulatory Orders Aspirin EC [Ecotrin Low Dose] 81 mg PO DAILY #30 tablet. 10/22/17 Apixaban [Eliquis] 5 mg PO BID 01/14/18 Lansoprazole [Prevacid] 30 mg PO DAILY 12/20/20 Propafenone [Rythmol] 150 mg PO BID tab 10/20/21 Metoprolol Succinate (ER) [Toprol Xl] 12.5 mg PO HS 03/11/22 Pravastatin Sodium [Pravachol] 20 mg PO HS 03/11/22 Pregabalin [Lyrica] 50 mg PO HS 03/11/22 glipiZIDE 7 mg PO DAILY 03/11/22 Budesonide-Formot 160-4.5 Mcg [Symbicort 160-4.5 Mcg Inhaler] 2 puff INHALATION BID 05/21/22 Controlled Substance Measures - Controlled Substance Measures Is patient prescribed a controlled substance at discharge?: No
== END ==
LOC: PNWHC3 07:56
PROVIDERS: ATTEND Specialist
DX: M16.11 Unilateral primary osteoarthritis, right hip (principal); Z87.891 Personal history of nicotine dependence
CPT/HCPCS: 99211

== ENCOUNTER 2022-07-26 08:46 | Day surgery (SDC) | payer MEDICARE, BC ==
[2022-07-24 10:18] VITALS: BMI 31.8
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
[~2022-07-26 08:46] MED LIST changes: +DEXAMETHASONE SOD PHOSPHATE 4 MG/ML 1 ML VIAL IV ONE; +HYDROmorphone 0.5 MG/0.5 ML SYRINGE IVP PRN; +ONDANSETRON 4 MG/2 ML VIAL IVP ONE
[2022-07-26 09:41] LABS: Glucose,Whole Blood 163 mg/dL (70-110)
[2022-07-26] MEDS ORDERED: MIDAZOLAM 2 MG/2 ML VIAL IVP ONE (09:52)
[2022-07-26] MEDS ORDERED: PROPOFOL 10 MG/ML 20 ML VIAL IV ONE ×2 (10:53)
[2022-07-26] MEDS ORDERED: LIDOCAINE 2% INJ 20 MG/ML (2 ML VIAL) ONE (10:53)
[2022-07-26] MEDS ORDERED: DEXAMETHASONE SOD PHOSPHATE 4 MG/ML 1 ML VIAL ONE (10:53)
[2022-07-26] MEDS ORDERED: fentaNYL (PF) 50 MCG/ML 2 ML AMP ONE (10:53)
[2022-07-26] MEDS ORDERED: MIDAZOLAM 2 MG/2 ML VIAL ONE (10:53)
[2022-07-26] MEDS ORDERED: SUCCINYLCHOLINE CHLORIDE 200 MG/10 ML VIAL IV ONE (10:53)
[2022-07-26] MEDS ORDERED: EPINEPHrine (PF) 1 ML in SODIUM CHLORIDE 0.9% IRRIGATIO 3,000 ML IRRIGATION ONE ×8 (10:53)
[2022-07-26] MEDS ORDERED: ROPIVACAINE 5 MG/ML 30 ML VIAL ONE (10:53)
[2022-07-26] MEDS ORDERED: ROCURONIUM 10 MG/ML (5 ML VIAL) IV ONE (10:53)
--- NOTE | 2022-07-26 11:58 | P.OP ---
Date of Procedure: 07/26/22 Preoperative Diagnosis: Right shoulder impingement/possible rotator cuff tear Postoperative Diagnosis: Same in addition to 1 cm rotator cuff tear, posterior labral tear Procedure(s) Performed: Right shoulder arthroscopic subacromial decompression/rotator cuff repair/posterior labral debridement Implants: Arthrex 4.75 mm swivel lock anchor times one, 5.5 mm swivel lock anchor 1 Anesthesia: VICKIA, adilson Surgeon: Jonn Patel Customer Account Manager #1: Reji Schmidt Estimated Blood Loss (ml): 10 Pathology: none sent Condition: stable Disposition: PACU Indications for Procedure: The patient's a 77-year-old male presents with progressive right shoulder pain despite conservative measures. A discussion of the risks and benefits of operative intervention versus continued conservative measures was made with patient. He opted to proceed with surgery. Operative risks to include infection, neurovascular injury, development of blood clots, possible tendon rerupture, possible postoperative stiffness, possible persistence of symptoms an d need for subsequent procedures was discussed. Informed consent was obtained. Operative Findings: As below Description of Procedure: The patient was brought to the operating room, and after induction of general anesthesia was placed in a beachchair position. A preoperative interscalene block was placed for postoperative analgesia. I examined the right shoulder. There was no gross block to passive motion or gross glenohumeral instability. The right upper extremity was prepped and draped in normal fashion. The bony outlines the acromion, distal clavicle, and coracoid process were outlined with a skin marker. The glenohumeral joint was inflated with 50 mL of saline utilizing a spinal needle from posterior approach. A posterior portal was made through a 5 mm skin incision 1 cm medial and inferior to the posterior lateral border time. A blunt trocar was used to easily into the joint. Diagnostic arthroscopy was performed. An anterior portal was made just lateral to the coracoid process entering the joint above the subscapularis tendon. The subscapularis tendon appeared to be intact. Anterior labrum was intact. The inferior recess was inspected. The posterior labrum was torn and was debrided back to stable base with a motorized shaver. The biceps was inspected and was felt to be intact. On inspection the rotator cuff, a high-grade partial- thickness tear was noted involving the anterior aspect the supraspinatus. The arthroscope was placed into the subacromial space. A lateral portal was made 2 centimeters inferior to the anterior lateral border of the acromion. The soft tissue on the undersurface of the acromion was debrided with a motorized shaver and electrocautery clearly defining the anterior medial and lateral borders as well as the distal clavicle. An anterior inferior acromioplasty was performed with a motorized martha starting anterolateral, then extending this posteriorly, then extending this medially. I converted to a flat acromion and this was verified in the posterior and lateral viewing portals. The rotator cuff was inspected. The anterior supraspinatus tear was identified and the edges debrided with a motorized shaver back to stable base. The greater tuberosity was lightly decorticating with a shaver down to a bleeding bony surface. An accessory superior lateral portal was made just off the lateral edge of the acromion for anchor placement. A 4.75 mm swivel lock anchor preloaded with #2 fiber tape was then placed just off the articular surface with the appropriate starting awl. Good purchase was obtained. These fiber tapes were then passed the rotator cuff with a scorpion suture passer. A lateral row was created utilizing the sutures. A 5.5 mm swivel lock anchor was placed laterally. Good purchase was obtained. Final arthroscopic view showed adequate compression at the footprint. The arthroscope was then removed. The portals were closed with simple 3-0 nylon sutures. A sterile dressing was applied in addition to a sling. The patient was then awoken from general anesthesia and transferred to recovery room in good condition. Blood loss was estimated at 10 mL. No complications were incurred. Sponge and needle counts were correct in the case. Reji CARROLL assisted and the major components of the case to include arm positioning, anchor placement, and rotator cuff repair.
[2022-07-26 12:30] VITALS: TEMP 97
[2022-07-26] MEDS ORDERED: LACTATED RINGERS 1,000 ML IV ONE (13:24)
[2022-07-26 13:36] VITALS: RESP 18
[2022-07-26 14:05] VITALS: PULSE 79
[2022-07-26 14:16] VITALS: BP 160/76
--- NOTE | 2022-07-28 19:15 | P.ANPRN ---
Procedure Note - Anesthesia - Nerve Block Performed Right Interscalene Single Time Out Performed: Yes Date of Procedure: 07/26/22 Procedure Start Time: :51 Procedure Stop Time: :55 Location of Patient: PreOp Indication: Acute Post-Operative Pain, Requested by Surgeon Sedation Type: Sedate with meaningful contact maintained Preparation: Sterile Prep Position: Supine Needle Types: Pajunk Needle Gauge: 21 Ultrasound used to visualize needle placement: Yes Ultrasound used to observe medication spread: Yes Blood Aspirated: No Pain Paresthesia on Injection Noted: No Resistance on Injection: Normal Image Stored and Saved: Yes Events: Uneventful and Well Tolerated (Ropivacaine 0.5% 20 mL plus dexamethasone 4 mg)
== END 2022-07-26 14:32 | disposition home or self-care (01) ==
LOC: OR 08:46
PROVIDERS: ATTEND Orthopaedic Surgery
DX: M75.101 Unspecified rotator cuff tear or rupture of right shoulder, not specified as traumatic (principal); M75.41 Impingement syndrome of right shoulder; I48.91 Unspecified atrial fibrillation; J45.909 Unspecified asthma, uncomplicated; E11.9 Type 2 diabetes mellitus without complications; Z79.84 Long term (current) use of oral hypoglycemic drugs; I10 Essential (primary) hypertension; E78.5 Hyperlipidemia, unspecified; K21.9 Gastro-esophageal reflux disease without esophagitis; Z86.711 Personal history of pulmonary embolism; G47.30 Sleep apnea, unspecified; Z90.49 Acquired absence of other specified parts of digestive tract; Z98.890 Other specified postprocedural states; Z87.891 Personal history of nicotine dependence; Z81.8 Family history of other mental and behavioral disorders; Z79.01 Long term (current) use of anticoagulants; Z79.02 Long term (current) use of antithrombotics/antiplatelets; Z79.51 Long term (current) use of inhaled steroids; Z79.899 Other long term (current) drug therapy; G89.18 Other acute postprocedural pain; F41.9 Anxiety disorder, unspecified; F32.A Depression, unspecified
CPT/HCPCS: 29827; 29826; 64415; 76942; C1713 ×2; C1894; J2250; J0330; J1100; J0690; J2405; J0171; J3010; J2795; J2704; J1170; J2001

== ENCOUNTER → 2022-08-21 | Outpatient (CLI) | payer MEDICARE, BC ==
--- NOTE | 2022-08-25 03:05 | MR ---
EXAMINATION TYPE: MR hand LT wo con DATE OF EXAM: 08/21/2022 COMPARISON: None HISTORY: Soft tissue mass at base of left thumb, numbness/shock radiates into thumb. Marker placed. Multiplanar multiecho imaging of the left hand performed without contrast. There is a marker on the dorsum of the hand in the area of concern which is placed over the second ca rpometacarpal joint. The metacarpals are intact. There is some spurring at the first carpometacarpal joint. There is no granados bluxation. There are some small rounded areas of fluid signal in the waist of the scaphoid bone. No f racture line seen. There is some spurring at the dorsal aspect of the second carpometacarpal joint. T here is minor spurring also present at the third fourth and fifth carpometacarpal joints. There is no evidence for soft tissue mass. The flexor and extensor tendons appear intact. IMPRESSION: There is some spurring at the carpometacarpal joints. No soft tissue mass seen. Mild cystic changes in the waist of the scaphoid bone could relate to old healed fracture. No acute f racture seen.
--- NOTE | 2022-08-26 11:03 | MR ---
EXAMINATION TYPE: MR wrist LT wo con DATE OF EXAM: 08/21/2022 COMPARISON: Outside radiograph 07/08/2022 HISTORY: 77-year-old male R22.9, Soft tissue mass at base of left thumb, numbness/shock radiates into thumb. Marker placed. TECHNIQUE: Multiplanar, multisequence images of the left wrist were obtained without IV contrast. FINDINGS: The technologist indicates that the patient is unable to lay and flat. This results in unconventional planes of imaging and limits the evaluation. There is subchondral cystic change prominent within the scaphoid likely reflecting underlying degener ative change at the radiocarpal and triscaphe joint. Additional [id number] degenerative change first CMC joint. We note a type II hamate with some subchondral signal change at the apex of the hamate and correspond ing cartilage loss. Some additional subchondral cystic change noted within the capitate. There is a palpable marker placed along the dorsal radial aspect of the hand at the level of the CMC articulation particularly of the second finger. There is a focal overlying bony spur from the dorsal second CMC joint. No discrete soft tissue mass or sizable ganglion cyst is identified. Scattered mild tenosynovial fluid along the second, third, and fourth dorsal extensor tendon compartm ents. Borderline thickened appearance to the median nerve just beyond the distal wrist crease at 13 mm. Thi s can be correlated clinically. Some mild tenosynovial fluid along the extensor carpi ulnaris. No tendon subluxation or dislocation i s seen. There is a through thickness tear through the central disc of the TFC, coronal series 401 hao ge 9. Some ulnar-sided soft tissue swelling is also noted. Partial tears involving both dorsal and proximal portions of the scapholunate ligament. Mild radiocar pal joint effusion. IMPRESSION: 1. Exam limitations due to patient's inability to lay the hand flat. This results in unconventional p lanes of imaging. 2. Palpable marker along the dorsal radial aspect of the hand at the level of the CMC joint. There se ems to be a small focal bone spur from the dorsal aspect of the second CMC joint here. No discrete so ft tissue mass or sizable ganglion cyst is identified. 3. 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 Also, moderate OA suggested involving the r adioscaphoid joint. 4. Signal changes at the apex of the hamate bone suggests hamatolunate impingement. 5. Partial tears involving the dorsal and proximal portions of the scapholunate ligament. No sanjay li gamentous rupture. 6. Through thickness tear involving the central disc of the TFC with ulnar-sided soft tissue swelling .
== END | disposition home or self-care (01) ==
LOC: RADMRIMAIN 13:01
PROVIDERS: ATTEND Orthopaedic Surgery Hand Surgery
DX: S63.591A Other specified sprain of right wrist, initial encounter (principal); M18.11 Unilateral primary osteoarthritis of first carpometacarpal joint, right hand; R22.31 Localized swelling, mass and lump, right upper limb

== ENCOUNTER 2022-10-30 09:19 | Day surgery (SDC) | payer MEDICARE, BC ==
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
[~2022-10-30 09:19] MED LIST changes: -DEXAMETHASONE SOD PHOSPHATE 4 MG/ML 1 ML VIAL IV ONE; -HYDROmorphone 0.5 MG/0.5 ML SYRINGE IVP PRN; -LACTATED RINGERS 1,000 ML IV SCH; -LIDOCAINE 1% (10MG/ML) FOR IV START INTRADERMA PRN; -ONDANSETRON 4 MG/2 ML VIAL IVP ONE; +Pre Op ABX Message 1 EACH MISC MISCELLANE ONE
[2022-10-30] MEDS ORDERED: LACTATED RINGERS 1,000 ML IV ONE (09:39)
[2022-10-30] MEDS ORDERED: fentaNYL (PF) 50 MCG/ML 2 ML AMP IV PRN (09:47)
[2022-10-30] MEDS ORDERED: ONDANSETRON 4 MG/2 ML VIAL IVP PRN (09:47)
[2022-10-30] MEDS ORDERED: LACTATED RINGERS 1,000 ML IV SCH (09:47)
[2022-10-30] MEDS ORDERED: LIDOCAINE 1% (10MG/ML) FOR IV START INTRADERMA PRN (09:47)
[2022-10-30 10:09] LABS: Glucose,Whole Blood 137 mg/dL (70-110)
[2022-10-30] MEDS ORDERED: PROPOFOL 10 MG/ML 20 ML VIAL IV ONE (10:20)
[2022-10-30] MEDS ORDERED: SUCCINYLCHOLINE CHLORIDE 200 MG/10 ML VIAL IV ONE (10:20)
[2022-10-30] MEDS ORDERED: ePHEDrine 50 MG/ML 1 ML VIAL ONE (10:20)
[2022-10-30] MEDS ORDERED: MIDAZOLAM 2 MG/2 ML VIAL ONE (10:20)
[2022-10-30] MEDS ORDERED: fentaNYL (PF) 50 MCG/ML 2 ML AMP ONE (10:20)
[2022-10-30] MEDS ORDERED: LIDOCAINE 2% INJ 20 MG/ML (2 ML VIAL) ONE (10:20)
[2022-10-30] MEDS ORDERED: LIDOCAINE 1% INJ 10MG/ML (20 ML MDV) SQ ONE (10:45)
[2022-10-30] MEDS ORDERED: BUPIVACAINE (PF) 0.5% 30 ML VIAL SQ ONE (10:45)
[2022-10-30 11:34] VITALS: TEMP 97.4
[2022-10-30 11:49] VITALS: RESP 16
[2022-10-30 13:13] VITALS: BP 157/84; PULSE 58
--- NOTE | 2022-10-30 17:51 | P.OP ---
Date of Procedure: 10/30/22 Preoperative Diagnosis: 1.) Left hand soft tissue mass 2.) Left hand superficial radial nerve irritation Postoperative Diagnosis: 1.) Left hand soft tissue mass [id number] 2.) Left hand superficial radial nerve irritation Procedure(s) Performed: 1.) Left hand soft tissue mass excision, subfascial. [id number] 2.) Left hand superficial radial nerve neurolysis Anesthesia: GETA Surgeon: Rico Mark Global Risk Management Director #1: Reji Schmidt Estimated Blood Loss (ml): 0 Pathology: none sent (Hand soft tissue mass) Condition: stable Disposition: PACU Description of Procedure: This is a 77 year old male who presents today for surgical intervention regarding a left hand soft tissue mass that was causing significant irritation of the superficial sensory branch of the radial nerve after he had failed conservative treatment. Risks and benefits of surgery were discussed with the patient including bleeding, damage to surrounding tissue, infection, need for further surgery as well as risks of anesthesia including pulmonary embolism and even and the patient wished to proceed with surgical intervention. The patient was seen in the pre-operative area by myself. Consent and H&P were completed and updated. The correct extremity was marked in the pre-operative area by myself and all other questions were answered. Operative Narrative: The patient was brought to the operating room by the department of anesthesia. They remained on the portable stretcher and a rolling hand table was brought to the side of the operative extremity. Pre-operative time out was performed indicating the correct patient, procedure and laterality. All in the room agreed. Pre-operative antibiotics were given prior to skin incision. The patient was then drifted off to sleep by the department of anesthesia. A nonsterile tourniquet was then applied to the operative extremity and the left upper extremity was then prepped and draped in normal sterile fashion. The operative extremity was the exsanguinated with an esmarch bandage and the tourniquet was inflated to 250mmHg. Curvilinear incision was made over the area of maximal tenderness where patient had positive tinels signs which was marked in the pre-op area. Blunt dissection was taken down through subcutaneous tissues. The SSBRN was identified lying directly over the thumb EPL tendon. Just ulnar to the EPL tendon underlying the SSBRN was a 5mm multilobulated clear gelatinous mass that was rubbing on the nerve. This was carefully dissected out, excised and sent for pathology. The nerve appeared to be irritated and flattened at the site of contact over the mass with surrounding scarring present. The 2 main branches of the nerve involved were carefully dissected out and freed from surrounding scar tissue and adhesion that had developed from the mass. The nerve branches were now free of obstruction after mass removal. The wound was irrigated. Closure was performed with 4-0 monocryl suture followed by 4-0 nylon suture. A sterile dressing consisting of 4x4s, cast padding and clark wrap was applied. Tourniquet was let down and the hand had immediate perfusion. The patient was then woken by the department of anesthesia and transferred to PACU in stable condition. Reji CARROLL was present for the case to assist in major portions of the procedure and protection of vital neurovascular structure. Rico Mark D.O. Orthopedic Hand/Upper Extremity Surgeon
== END 2022-10-30 13:20 | disposition home or self-care (01) ==
LOC: OR 09:19
PROVIDERS: ATTEND Orthopaedic Surgery Hand Surgery
DX: G56.32 Lesion of radial nerve, left upper limb (principal); I48.91 Unspecified atrial fibrillation; J45.909 Unspecified asthma, uncomplicated; E11.9 Type 2 diabetes mellitus without complications; K21.9 Gastro-esophageal reflux disease without esophagitis; E78.5 Hyperlipidemia, unspecified; Z86.711 Personal history of pulmonary embolism; Z90.89 Acquired absence of other organs; Z95.5 Presence of coronary angioplasty implant and graft; Z87.891 Personal history of nicotine dependence; Z79.01 Long term (current) use of anticoagulants; Z79.899 Other long term (current) drug therapy; Z79.84 Long term (current) use of oral hypoglycemic drugs; Z90.49 Acquired absence of other specified parts of digestive tract; Z79.51 Long term (current) use of inhaled steroids
CPT/HCPCS: 26115; 64708; J2250; J0330; J2405; J2001 ×2; J3010; J2704; 88305

== ENCOUNTER → 2023-08-25 | Outpatient (CLI) | payer MEDICARE, BC ==
[2023-08-25 09:57] VITALS: BP 155/86; PULSE 76; RESP 15; TEMP 98.2
--- NOTE | 2023-08-25 13:59 | P.PAINPG ---
PQRS Measure Charge Sheet Comment: A 78 yr old male with a history of severe and chronic LBP x 3 yr secondary to DDD, spondylosis and facet arthropathy without myelopathy presents today for evaluation. Pain level is currently at 9 /10 in intensity, constant, localized in his lumbar spine, predominantly axial, throbbing in character without r adiation. Pt has had a BL RFA of the L3-L4, L4-L5, L5-S1 [place] [address] Cobb and he stated he experienced 75% pain relief x 2 yrs s/p procedure. Pain is provoked by bending, twisting, lifting. Pain is alleviated with alternating ice & heat, ice, PT w massage x 6 wks in Spring 2021, physician guided home stretches every morning since Spring 2021, medications, sitting, repositioning and rest. Oswestry axial pain score of 34. Interventional pain procedures completed include R Hip injection x1 Patient is currently on Tyl Patient denies any side effects of the medication(s), denies excessive drowsiness or sleepiness, denies suicidal ideation and reports that the current pain medication is helping to control the pain and improve activities of daily living. Patient denies any motor or sensory deficits. Patient denies any fever or night sweats, denies any change in the bowel movements or urination. Physical Examination: -Constitutional: Cooperative. Not in acute distress . - Neurologic: Cranial nerve II to XII intact. No focal neurological deficits. - Psychatric: Alert & oriented x 3. Matching mood & appropriate affect. Judgment and insight intact. - Musculoskeletal: Cervical spine: Muscle bulk/ tone/ strength in the bilateral upper extremities normal Vertebral body tenderness to palpation over Spurling test positive Distraction test positive Facet loading test positive Thoracic spine Muscle bulk / tone/ strength in the bilateral paraspinal muscles normal Vertebral body tender to palpation over Facet loading test positive Lumbar spine: Motor bulk/ tone/ strength lower extremities , thigh and legs : 5/5 Deep tendon reflexes : Normal Knee Jerk. Normal Ankle Jerk . Vertebral body tenderness to palpation Lumbar Facet Loading Test positive over BL L4-L5, L5-S1 Straight Leg Raise: positive at 30 degrees right side/ left side Gaenslen's Test positive Sacral spine : Severe tenderness over the Sacroiliac joint: right side / left side Range of motion: Flexion of the lumbar spine <60 degrees Range of motion: Extension of the lumbar spine <20 degrees Gaenslen's Test positive Aníbal's Test positive Cristian test: positive right side / left side Thigh Thrust Test Sacral Thrust Test Imaging: MRI noncontrast of the lumbar spine from 10/08/21 reviewed Assessment and plan: Chronic LBP secondary to L1 compression fracture, DDD, spondylosis and facet arthropathy without myelopathy Recommendation of BL RFA L4-L5, L5-S1. Exhibited optimal pain relief w prior RFA of the BL L4-L5, L5-S1. Risks, benefits of procedure discussed and pt verbalized understanding. Protocol for discontinuation/ continuation of medications fish procedure discussed. All patient questions answered I have spent less than 30 minutes on patient care today. Dr Bush was available by phone for the evaluation of this patient. The time was used to review the medical records including relevant urine studies and Prescription history (MAPs), review of the available imaging, evaluation and examination of the patient, coordination of care with the medical staff and if applicable referring physicians, as well as creation of the medical record PQRS Narrative: Smoking Status Former smoker Hx Alcohol Use (MH) No Home Medications: Ambulatory Orders Apixaban [Eliquis] 5 mg PO BID 01/14/18 Lansoprazole [Prevacid] 30 mg PO DAILY 12/20/20 Propafenone [Rythmol] 150 mg PO BID tab 10/20/21 Metoprolol Succinate (ER) [Toprol Xl] 12.5 mg PO HS 03/11/22 Pravastatin Sodium [Pravachol] 20 mg PO HS 03/11/22 Pregabalin [Lyrica] 50 mg PO HS 03/11/22 glipiZIDE 7 mg PO DAILY 03/11/22 Budesonide-Formot 160-4.5 Mcg [Symbicort 160-4.5 Mcg Inhaler] 2 puff INHALATION BID PRN 05/21/22 HYDROcodone/APAP 7.5-325MG [[place] 7.5-325] 1 tab PO Q6HR PRN 3 Days #21 tab 07/26/22 Controlled Substance Measures - Controlled Substance Measures Is patient prescribed a controlled substance at discharge?: No
== END ==
LOC: PNWHC3 09:12
PROVIDERS: ATTEND Specialist
DX: S32.018A Other fracture of first lumbar vertebra, initial encounter for closed fracture (principal); M54.50 Low back pain, unspecified; G89.29 Other chronic pain; M47.817 Spondylosis without myelopathy or radiculopathy, lumbosacral region; Z87.891 Personal history of nicotine dependence; X58.XXXA Exposure to other specified factors, initial encounter
CPT/HCPCS: 99211

== ENCOUNTER → 2023-11-17 | Outpatient (CLI) | payer MEDICARE, BC ==
[2023-11-17 09:49] VITALS: BP 142/78; PULSE 56; RESP 15; TEMP 98.6
--- NOTE | 2023-11-17 14:36 | P.PAINPG ---
Objective - Vital Signs Vital signs: Intake & Output 11/16/23 11/17/23 11/17/23 18:59 06:59 18:59 Weight 97.522 kg PQRS Measure Charge Sheet Comment: A 78 yr old male with a history of severe and chronic LBP x 3 yr secondary to DDD, spondylosis and facet arthropathy without myelopathy presents today for evaluation s/p BL RFA L3-L5. Pt states he experienced 50 % pain relief s/p procedure. Pain level is provoked at 8 /10 in intensity, constant, localized in his lumbar spine, predominantly axial, throbbing in character without radiation. Pain is provoked by standing from a sitting position. Pain is alleviated with alternating ice & heat, ice, PT w massage x 6 wks in Spring 2021, physician guided home stretches every morning since Spring 2021, medications, sitting, repositioning and rest. Oswestry axial pain score of 33. Interventional pain procedures completed include R Hip injection x1, BL RFA L3- L5 (Oct 2023) Patient is currently on Tyl Patient denies any side effects of the medication(s), denies excessive drowsiness or sleepiness, denies suicidal ideation and reports that the current pain medication is helping to control the pain and improve activities of daily living. Patient denies any motor or sensory deficits. Patient denies any fever or night sweats, denies any change in the bowel movements or urination. Physical Examination: -Constitutional: Cooperative. Not in acute distress . - Neurologic: Cranial nerve II to XII intact. No focal neurological deficits. - Psychatric: Alert & oriented x 3. Matching mood & appropriate affect. Judgment and insight intact. - Musculoskeletal: Cervical spine: Muscle bulk/ tone/ strength in the bilateral upper extremities normal Vertebral body tenderness to palpation over Spurling test positive Distraction test positive Facet loading test positive Thoracic spine Muscle bulk / tone/ strength in the bilateral paraspinal muscles normal Vertebral body tender to palpation over Facet loading test positive Lumbar spine: Motor bulk/ tone/ strength lower extremities , thigh and legs : 5/5 Deep tendon reflexes : Normal Knee Jerk. Normal Ankle Jerk . Vertebral body tenderness to palpation Lumbar Facet Loading Test positive over BL L4-L5, L5-S1 Straight Leg Raise: positive at 30 degrees right side/ left side Gaenslen's Test positive Sacral spine : Severe tenderness over the Sacroiliac joint: right side / left side Range of motion: Flexion of the lumbar spine <60 degrees Range of motion: Extension of the lumbar spine <20 degrees Gaenslen's Test positive Aníbal's Test positive Cristian test: positive right side / left side Thigh Thrust Test Sacral Thrust Test Imaging: MRI noncontrast of the lumbar spine from 10/08/21 reviewed Assessment and plan: Chronic LBP secondary to L1 compression fracture, DDD, spondylosis and facet arthropathy without myelopathy Recommendation of BL TFESI L4-L5 #1. May need a series f injections for optimal pain relief. Risks, benefits of procedure discussed and pt verbalized understanding. Protocol for discontinuation/ continuation of medications fish procedure discussed. All patient questions answered I have spent less than 30 minutes on patient care today. Dr Bush was available by phone for the evaluation of this patient. The time was used to review the medical records including relevant urine studies and Prescription history (MAPs), review of the available imaging, evaluation and examination of the patient, coordination of care with the medical staff and if applicable referring physicians, as well as creation of the medical record - Pain Location Bilateral Lower Back Non-Pharmacological Interventions: Heat, Inactivity, Position/Reposition Pharmacological Interventions: Epidural, PRN Medication PQRS Narrative: Smoking Status Former smoker Hx Alcohol Use (MH) No Home Medications: Ambulatory Orders Apixaban [Eliquis] 5 mg PO BID 01/14/18 Lansoprazole [Prevacid] 30 mg PO DAILY 12/20/20 Propafenone [Rythmol] 150 mg PO BID tab 10/20/21 Metoprolol Succinate (ER) [Toprol Xl] 12.5 mg PO HS 03/11/22 Pravastatin Sodium [Pravachol] 20 mg PO HS 03/11/22 Pregabalin [Lyrica] 50 mg PO HS 03/11/22 glipiZIDE 7 mg PO DAILY 03/11/22 Budesonide-Formot 160-4.5 Mcg [Symbicort 160-4.5 Mcg Inhaler] 2 puff INHALATION BID PRN 05/21/22 Multivitamin [Multivitamins Adult Gummies] 1 dose PO QAM 10/14/23 HYDROcodone/APAP 7.5-325MG [[place] 7.5-325] 1 tab PO Q4HR PRN 3 Days #15 tab 11/12/23 diazePAM [Valium] 5 mg PO DAILY PRN 1 Days #2 tab 11/17/23 Controlled Substance Measures - Controlled Substance Measures Is patient prescribed a controlled substance at discharge?: No
== END ==
LOC: PNWHC3 09:02
PROVIDERS: ATTEND Specialist
DX: S32.010A Wedge compression fracture of first lumbar vertebra, initial encounter for closed fracture (principal); M51.37 Other intervertebral disc degeneration, lumbosacral region; M47.817 Spondylosis without myelopathy or radiculopathy, lumbosacral region; X58.XXXA Exposure to other specified factors, initial encounter; Z87.891 Personal history of nicotine dependence
CPT/HCPCS: 99211

== ENCOUNTER 2023-12-02 09:21 | Day surgery (SDC) | payer MEDICARE, BC ==
[~2023-12-02 09:21] MED LIST changes: +LACTATED RINGERS 1,000 ML IV SCH; -Pre Op ABX Message 1 EACH MISC MISCELLANE ONE
[2023-12-02 09:53] LABS: Glucose,Whole Blood 130 mg/dL (70-110)
[2023-12-02 10:11] VITALS: TEMP 97.6
[2023-12-02] MEDS ORDERED: IOPAMIDOL M200 10 ML VIAL ONE (10:27)
[2023-12-02] MEDS ORDERED: methylPREDNISolone ACETATE 40 MG/ML 1 ML VIAL ONE (10:27)
--- NOTE | 2023-12-02 10:39 | P.PCN ---
Date of Procedure: 12/02/23 Procedure(s) Performed: PREOPERATIVE DIAGNOSIS: 1-Lumbar radiculopathy . 2-lumbar degenerative disc disease. 3-lumbar spondylosis with lumbar facet arthropathy without myelopathy POSTOPERATIVE DIAGNOSIS: 1-lumbar radiculopathy. 2-lumbar degenerative disc disease. 3-lumbar spondylosis with facet arthropathy without myelopathy PROCEDURE 1. Transforaminal epidural steroid injection under fluoroscopic guidance at bilateral L4-5 level. (Fluoroscopy images stored on file in the radiology Department ) 2. Lumbar epidurogram . ANESTHESIA: Local with 1% lidocaine 3 ml. EBL: Minimal PROCEDURE INDICATION: The patient with low back pain and radiculopathy symptoms unresponsive to conservative treatment. PROCEDURE DESCRIPTION / TECHNIQUE: The patient was seen and identified in the preoperative area. Risks, benefits, complications, and alternatives were discussed with the patient. The patient agreed to proceed with the procedure and signed the consent. IV was started, and vital signs were stable. Patient was taken to the OR and time out was completed. The patient was placed in the prone position on procedure table and a pillow was placed under the abdomen to reduce lumbar lordosis. The lumbosacral area was prepped and draped in the usual sterile fashion. Critical pause was taken. Vital signs were closely monitored during the procedure. Using oblique fluoroscopy, the chin of the ``Ricardo dog at Right L4-5 level was identified, and the skin and deeper tissues just below was localized with 1% lidocaine. Subsequently, a 22-gauge 5-inch spinal needle was advanced under a tunneled view fluoroscopic guidance just underneath the chin of the ``Ricardo dog at the right L4-5 Under lateral fluoroscopy, the needle was then advanced to the posterior border of the interforaminal space. After negative aspiration of CSF and blood and with no paresthesias, 1 mL Isovue 200 contrast dye was injected excellent epidurogram and outlining of the nerve root Subsequently, 3 mL of block solution containing 20 mg Depo-Medrol and 2 mL of 0.9% normal saline PF was injected. Needle was removed and the same procedure was repeated at the left L4-5 level. At the end of the procedure, skin was cleansed, and bandages were applied. COMPLICATIONS:none DISPOSITION / PLANS: The patient was placed in a supine position and transferred to the recovery area in a stable condition for observation. There was no evidence of lower extremity motor or sensory deficit after the procedure. Patient was discharged from the recovery room after meeting discharge criteria. Home discharge instructions were given to the patient by the staff. The patient was reexamined prior to discharge.
[2023-12-02 11:43] VITALS: BP 100/65; PULSE 61; RESP 20
--- NOTE | 2023-12-02 16:22 | FL ---
EXAMINATION TYPE: FL guided pain mgmt statistic DATE OF EXAM: 12/02/2023 FLUOROSCOPY Fluoroscopy time of 28 seconds was used during bilateral transforaminal lumbar epidural injections. 2 image/s document/s the procedure. [id number] mGcym2 DAP
== END 2023-12-02 11:05 | disposition home or self-care (01) ==
LOC: ORPAIN 09:21
PROVIDERS: ATTEND Specialist
DX: M51.16 Intervertebral disc disorders with radiculopathy, lumbar region (principal); M47.26 Other spondylosis with radiculopathy, lumbar region; E11.9 Type 2 diabetes mellitus without complications; I48.91 Unspecified atrial fibrillation; Z79.01 Long term (current) use of anticoagulants
CPT/HCPCS: 64483; Q9966; J1010

== ENCOUNTER → 2023-12-24 | Outpatient (CLI) | payer MEDICARE, BC ==
[2023-12-24 10:39] VITALS: BP 123/63; PULSE 76; RESP 15; TEMP 98.5
--- NOTE | 2023-12-24 15:49 | P.PAINPG ---
PQRS Measure Charge Sheet Comment: A 78 yr old male with a history of severe and chronic LBP x 3 yr secondary to DDD, spondylosis and facet arthropathy without myelopathy presents today for evaluation s/p BL TFESI L4-L5 #1. Pt states he experienced 0 % pain relief s/p procedure. Pain level is provoked at 10 /10 in intensity, constant, localized in his lumbar spine, predominantly axial, throbbing in character without radiation. Pain is provoked by standing from a sitting position. Pain is alleviated with alternating ice & heat, ice, PT w massage x 6 wks in Spring 2021, physician guided home stretches every morning since Spring 2021, medications, sitting, repositioning and rest. Oswestry axial pain score of 32. Interventional pain procedures completed include R Hip injection x1, BL RFA L3- L5 (Oct 2023), BL TFESI L4-L5 x1 (Nov 2023) Patient is currently on Tyl Patient denies any side effects of the medication(s), denies excessive drowsiness or sleepiness, denies suicidal ideation and reports that the current pain medication is helping to control the pain and improve activities of daily living. Patient denies any motor or sensory deficits. Patient denies any fever or night sweats, denies any change in the bowel movements or urination. Physical Examination: -Constitutional: Cooperative. Not in acute distress . - Neurologic: Cranial nerve II to XII intact. No focal neurological deficits. - Psychatric: Alert & oriented x 3. Matching mood & appropriate affect. Judgment and insight intact. - Musculoskeletal: Cervical spine: Muscle bulk/ tone/ strength in the bilateral upper extremities normal Vertebral body tenderness to palpation over Spurling test positive Distraction test positive Facet loading test positive Thoracic spine Muscle bulk / tone/ strength in the bilateral paraspinal muscles normal Vertebral body tender to palpation over Facet loading test positive Lumbar spine: Motor bulk/ tone/ strength lower extremities , thigh and legs : 5/5 Deep tendon reflexes : Normal Knee Jerk. Normal Ankle Jerk . Vertebral body tenderness to palpation L5 Lumbar Facet Loading Test positive over BL L4-L5, L5-S1 Straight Leg Raise: positive at 30 degrees right side/ left side Gaenslen's Test positive Sacral spine : Severe tenderness over the Sacroiliac joint: right side / left side Range of motion: Flexion of the lumbar spine <60 degrees Range of motion: Extension of the lumbar spine <20 degrees Gaenslen's Test positive Aníbal's Test positive Cristian test: positive right side / left side Thigh Thrust Test Sacral Thrust Test Imaging: MRI noncontrast of the lumbar spine from 10/08/21 reviewed Assessment and plan: Chronic LBP secondary to L1 compression fracture, DDD, spondylosis and facet arthropathy without myelopathy Recommendation of follow up w Dr Horn to explore additional treatment options. All patient questions answered I have spent less than 30 minutes on patient care today. Dr Bush was avail able by phone for the evaluation of this patient. The time was used to review the medical records including relevant urine studies and Prescription history (MAPs), review of the available imaging, evaluation and examination of the patient, coordination of care with the medical staff and if applicable referring physicians, as well as creation of the medical record PQRS Narrative: Smoking Status Former smoker Hx Alcohol Use (MH) No Home Medications: Ambulatory Orders Apixaban [Eliquis] 5 mg PO BID 01/14/18 Lansoprazole [Prevacid] 30 mg PO DAILY 12/20/20 Propafenone [Rythmol] 150 mg PO BID tab 10/20/21 Metoprolol Succinate (ER) [Toprol Xl] 12.5 mg PO HS 03/11/22 Pravastatin Sodium [Pravachol] 20 mg PO HS 03/11/22 glipiZIDE 7 mg PO DAILY 03/11/22 Budesonide-Formot 160-4.5 Mcg [Symbicort 160-4.5 Mcg Inhaler] 2 puff INHALATION BID PRN 05/21/22 Multivitamin [Multivitamins Adult Gummies] 1 dose PO QAM 10/14/23 HYDROcodone/APAP 7.5-325MG [[place] 7.5-325] 1 tab PO Q4HR PRN 3 Days #15 tab 11/12/23 diazePAM [Valium] 5 mg PO DAILY PRN 1 Days #2 tab 11/17/23 Controlled Substance Measures - Controlled Substance Measures Is patient prescribed a controlled substance at discharge?: No
== END ==
LOC: PNWHC3 09:03
PROVIDERS: ATTEND Specialist
DX: M48.56XA Collapsed vertebra, not elsewhere classified, lumbar region, initial encounter for fracture (principal); M47.816 Spondylosis without myelopathy or radiculopathy, lumbar region; Z87.891 Personal history of nicotine dependence
CPT/HCPCS: 99211

== ENCOUNTER → 2024-02-12 | Outpatient (CLI) | payer MEDICARE, BC ==
--- NOTE | 2024-02-12 13:11 | MR ---
EXAMINATION TYPE: MR lumbar spine wo con DATE OF EXAM: 02/12/2024 11:58 AM CLINICAL INDICATION:Male, 78 years old with history of M54.5 Lumbar pain; PHH, Low back pain into bot h thighs front and back, COMPARISON: None TECHNIQUE: Multi planar, multi sequence imaging was performed utilizing: T1-weighted, T2-weighted, a nd turbo inversion recovery imaging of the lumbar spine. IV Contrast: cc . (None if empty) FINDINGS: Alignment: The lumbar vertebral bodies have preserved heights and alignment. Cord: The conus medullaris and the distal spinal cord appear unremarkable with regards to their signa l intensity and morphology. Bones/Discs: Compression deformity to the L1 vertebral body with 25-50% height loss. No bony edema. M ild degeneration changes throughout the spine with osteophyte formation and facet joint arthropathy. Intervertebral disc signal is maintained. T12-L1: No evidence of significant spinal canal stenosis or neural foraminal stenosis. L1-L2: No evidence of significant spinal canal stenosis or neural foraminal stenosis. L2-L3: No evidence of significant spinal canal stenosis or neural foraminal stenosis. L3-L4: Disc bulge and facet joint arthropathy result in mild spinal canal and mild to moderate bilate ral neural foraminal stenosis. L4-L5: Disc bulge and facet joint arthropathy result in mild spinal canal and mild to moderate bilate ral neural foraminal stenosis. L5-S1: The disc has a rounded posterior morphology without significant spinal canal stenosis. Facet j oint arthropathy with mild bilateral neural foraminal stenosis. No significant spinal canal or neural foraminal stenosis in the remainder of the visualized levels. Other findings: None. IMPRESSION: 1. No definitive evidence of disc herniation or significant spinal canal stenosis. 2. Remote appearing compression deformities of L1 vertebral body without bony edema. 3. Fotu-so-cksanvym disc degeneration with associated osteoarthritic changes no neural foraminal stevie nosis worse at L3-L4 and L4-L5 with mild to moderate bilateral neural foraminal stenosis.
== END | disposition home or self-care (01) ==
LOC: RADMRIMAIN 10:56
PROVIDERS: ATTEND Orthopaedic Surgery
DX: M47.816 Spondylosis without myelopathy or radiculopathy, lumbar region (principal); M51.36 Other intervertebral disc degeneration, lumbar region
CPT/HCPCS: 72148

== ENCOUNTER → 2024-03-15 | Outpatient (CLI) | payer MEDICARE, BC ==
--- NOTE | 2024-03-15 13:44 | XR ---
EXAMINATION TYPE: XR chest 2V DATE OF EXAM: 03/15/2024 COMPARISON: 10/14/2021 HISTORY: Shortness of breath TECHNIQUE: Frontal and lateral views of the chest are obtained. FINDINGS: Scattered senescent parenchymal changes noted. Hyperinflation compatible with COPD. No evidence for infiltrate. No evidence for atelectasis. Heart size is stable. Mediastinal structures are stable and grossly unremarkable. No evidence for hilar prominence. Degenerative changes dorsal spine. IMPRESSION: 1. No evidence for acute pulmonary disease.
[2024-03-15 19:55] LABS: HCT 50.4 % (39.6-50.0); MCH 31.1 pg (27.0-32.0); MCHC 31.7 g/dL (32.0-37.0); MCV 98.1 FL (80.0-97.0); NRBC Per 100 WBC 0 X 10*3/uL (0.00-0.01); Platelet Count 203 X 10*3/uL (140-440); RBC 5.14 X 10*6/uL (4.40-5.60); WBC 4.77 X 10*3/uL (4.50-10.00)
[2024-03-15 20:00] LABS: ALT 19 U/L (10-49); AST 24 U/L (14-35); Albumin 4.2 g/dL (3.8-4.9); Albumin/Globulin Ratio 1.83 Ratio (1.60-3.17); Alkaline Phosphatase 48 U/L (41-126); BUN/Creat Ratio 15.69 Ratio (12.00-20.00); Blood Urea Nitrogen 20.4 mg/dL (9.0-27.0); Calcium 9.4 mg/dL (8.7-10.3); Chloride 105 mmol/L (96-109); Globulin 2.3 g/dL (1.6-3.3); Glucose 199 mg/dL (70-110); Potassium 4.8 mmol/L (3.5-5.5); Sodium 142 mmol/L (135-145); Total Protein 6.5 g/dL (6.2-8.2)
[2024-03-15 20:29] LABS: INR 1.01 sec (0.93-1.11); Prothrombin Time 10.9 sec (9.9-11.9)
== END | disposition home or self-care (01) ==
LOC: LABPAT 12:49
PROVIDERS: ATTEND Orthopaedic Surgery
DX: Z01.818 Encounter for other preprocedural examination (principal); M48.061 Spinal stenosis, lumbar region without neurogenic claudication; E11.9 Type 2 diabetes mellitus without complications; I10 Essential (primary) hypertension; I44.7 Left bundle-branch block, unspecified; R06.02 Shortness of breath; R94.31 Abnormal electrocardiogram [ECG] [EKG]; R00.1 Bradycardia, unspecified; Z79.01 Long term (current) use of anticoagulants
CPT/HCPCS: 36415; 71046; 80053; 85027; 85610; 93005

== ENCOUNTER → 2024-04-05 | Outpatient (CLI) | payer MEDICARE, BC | END | disposition home or self-care (01) | LOC: LABWHC1 09:55 | PROVIDERS: ATTEND Orthopaedic Surgery | CPT/HCPCS: 87070 ==

== ENCOUNTER 2024-04-12 06:12 | Day surgery (SDC) | payer MEDICARE, BC ==
[~2024-04-12 06:12] MED LIST changes: -LACTATED RINGERS 1,000 ML IV SCH; +ONDANSETRON 4 MG/2 ML VIAL IVP PRN; +TRANEXAMIC 1,000 MG/100ML-NACL 1,000 MG in SALINE 1 100ML.BAG IVPB PRN
--- NOTE | 2024-04-12 07:12 | P.PN ---
Progress Note - Text Progress Note Date: 04/12/24 H&P UPDATE: Pt s/e in PREOP area. H&P reviewed with pt. There are no significant changes. Risks and benefits discussed again with pt. He was willing to proceed with surgery today.
[2024-04-12 07:13] LABS: Glucose,Whole Blood 160 mg/dL (70-110)
[2024-04-12] MEDS ORDERED: HYDROmorphone 0.5 MG/0.5 ML SYRINGE IVP PRN (07:17)
[2024-04-12] MEDS: LACTATED RINGERS 1,000 ML BAG IV STA (07:17)
[2024-04-12] MEDS ORDERED: LACTATED RINGERS 1,000 ML IV SCH (07:17)
[2024-04-12] MEDS ORDERED: LIDOCAINE 1% (10MG/ML) FOR IV START INTRADERMA PRN (07:17)
[2024-04-12] MEDS ORDERED: METOCLOPRAMIDE 5 MG/ML 2 ML VIAL IVP PRN (07:17)
[2024-04-12] MEDS: IV FLUID CONTINUATION 1,000 ML IV ONE (07:18)
[2024-04-12] MEDS ORDERED: PROPOFOL 10 MG/ML 20 ML VIAL IV ONE (07:25)
[2024-04-12] MEDS ORDERED: TRANEXAMIC 1,000 MG/100ML-NACL PREMIX BAG ONE (07:25)
[2024-04-12] MEDS ORDERED: LIDOCAINE 1% INJ 10MG/ML (20 ML MDV) ONE (07:25)
[2024-04-12] MEDS ORDERED: ROCURONIUM 10 MG/ML (5 ML VIAL) IV ONE (07:25)
[2024-04-12] MEDS ORDERED: MIDAZOLAM 2 MG/2 ML VIAL ONE (07:25)
[2024-04-12] MEDS ORDERED: NEOSTIGMINE 1 MG/ML 10 ML VIAL ONE (07:25)
[2024-04-12] MEDS ORDERED: ePHEDrine 50 MG/ML 1 ML VIAL ONE (07:25)
[2024-04-12] MEDS ORDERED: GLYCOPYRROLATE 0.2 MG/ML 2 ML VIAL ONE (07:25)
[2024-04-12] MEDS ORDERED: SUCCINYLCHOLINE CHLORIDE 200 MG/10 ML VIAL IV ONE (07:25)
[2024-04-12] MEDS ORDERED: fentaNYL (PF) 50 MCG/ML 2 ML AMP ONE (07:25)
[2024-04-12] MEDS: ACETAMINOPHEN TAB 500 MG TAB PO PRN (07:26)
[2024-04-12] MEDS: ONDANSETRON 4 MG/2 ML VIAL IVP ONE (07:29)
[2024-04-12] MEDS: GABAPENTIN 300 MG CAP PO PRN (07:29)
[2024-04-12] MEDS: DEXAMETHASONE SOD PHOSPHATE 4 MG/ML 1 ML VIAL IV ONE (07:29)
[2024-04-12] MEDS: LIDOCAINE 2%-EPI 1:100,000 20 ML VIAL SQ ONE (07:53)
[2024-04-12] MEDS: BUPIVACAINE (PF) 0.5% 30 ML VIAL SQ ONE (07:53)
--- NOTE | 2024-04-12 08:27 | P.OP ---
Date of Procedure: 04/12/24 Preoperative Diagnosis: 1. L5-S1 FACET ARTHROSIS, SEVERE 2. L5-S1 SPONDYLOSIS WITHOUT RADICULOPATHY 3. LOW BACK PAIN Postoperative Diagnosis: 1. L5-S1 FACET ARTHROSIS, SEVERE 2. L5-S1 SPONDYLOSIS WITHOUT RADICULOPATHY 3. LOW BACK PAIN Procedure(s) Performed: 1. L5-S1 BILATERAL MEDIAL BRANCH TRANSECTION Implants: NONE Anesthesia: GETA Surgeon: Patrick Horn Button Bradder #1: Reji Schmidt (was present and assisted with all aspects of the case from position to closure. ) Estimated Blood Loss (ml): 10 IV fluids (ml): 900 Urine output (ml): 0 Pathology: none sent Condition: stable Disposition: PACU Indications for Procedure: Jerry Sanders is a 78 yo male presenting for evaluation of low back pain, pain with motion and facetogenic pain. It was my pleasure to have seen and examined Jerry Sanders. In our visit today we have had a chance to go over subjective complaints, physical examination findings and treatments including the natural course history without intervention and various interventional options. The patients imaging demonstrates the following findings: Severe facet arthrosis L5-S1 b/l as well as spondylosis, facet hypertrophy and overgrowth. Moderate stenosis overall without radicular sx. No fractures or lesions. Flattened LL. On a physical exam, Dominique Romero demonstrates the following findings: Pain with ROM of the lumbar spine which is limited secondary to the pain. Pain with back bending and sidebending and twisting Grinding sensation with motion in the low back TTP over the facet region of L5-S1 bilaterally. Positive injection findings on facet block with >50% relief of sx, transient, lasted 2-3 hrs. I have explained to the patient that as their condition progresses it will cause further neurological deficits and eventual paralysis. Based on the patients imaging, physical exam, and the rapid progression and disabling nature of their symptoms, at this time I recommend surgery in the form of a: Bilateral L5-S1 med ial branch transaction I discussed the risk and benefits of this procedure at length with Jerry Sanders.. The patient agreed to consider pursuing the procedure above mentioned. Prior to surgery, they should follow up with her PCP (Cardio, ID, IM etc) for clearance. Questions were invited and answered, and the patient wishes to proceed as outlined below. Currently, I am recommending: BILATERAL L5-S1 MEDIAL BRANCH TRANSECTION Description of Procedure: L5-S1 BILATERAL ENDO MBT The patient was seen and examined in the preoperative area. All preoperative protocols were followed. Informed consent was obtained, risks and benefits of the procedure were discussed at length. Risks including bleeding infection damage to the surrounding tissue and risk of reoperation were discussed with the patient. Risk of anesthesia up to and including was discussed with the patient. These are outlined in the risk review. They were willing to accept these risks and all of the risks of surgery. The patient was given a weight- based dose of antibiotics in the form of 2 g Ancef. The patient was seen and evaluated by the anesthesia team who deemed them fit for surgery. The site was marked, the patient was willing to proceed with the procedure. The patient was transferred to the operative suite by the Department of anesthesia. They were then drifted off to sleep by the department anesthesia and GETA was performed. The patient tolerated this well. Once confirmation of lines and ventilation the patient was transferred to a [prone Evangelist table very carefully]. All bony prominences including wrists, elbows, axilla, chest, hips, and thighs, and feet were padded very well. Special attention was paid to the genitalia and these were padded accordingly. SCDs were placed on bilateral lower extremities and were connected. Arms were well padded and placed [on arm boards up and out in the 90/90 position]. Once in position, again we confirmed good ventilation capabilities and that lines were running appropriately. The patient's lumbar spine was then exposed. 1010s were placed outlining the incision site. Standard alcohol was used to clean the incision site and allowed to dry. C-arm was used to biomark the patient and confirm level for incision which was marked with a skin marker. Operative briefing was performed with all teams and everyone in agreement to proceed. The patient was then prepped and draped in a normal sterile fashion. Timeout was then performed and all parties were in agreement with the procedure to be performed. 18-gauge needle and was then used to localize the left side L5-S1 facet joint. Lidocaine 2% with epi and Marcaine .25% w/o placed in this area. Skin jacque was then made and a trocar for the scope was entered. X-ray used to localize this area. Once this was confirmed a accessory portal was made and a trocar placed through here. We then used the ArthroCare wand to skeletonize the transverse process on the left-hand side at L5-S1 as well as sacral ala. This was then followed out medially until the L5-S1 facet joint medially and mamillary process was identified as well as the ligament in this area. Nerve was identified at L5-S1 level and visualized directly when it was transected. ArthroCare wand was then used to burn the area to retract the nerve ends. The scope was lavaged with pictures taken in this area and inspected there was no damage or issues and no bleeding. The scope was removed. This was then repeated on the contralateral side for L5-S1 MBT on the right side as well. Fluoroscopic localization was done, followed by local anesthetic. Skin nicks made, scope introduced and MBT done as described above. The scope was lavaged with pictures taken in this area and inspected there was no damage or issues and no bleeding. The scope was removed. The wounds were then cleaned and simple stitches were placed in the skin and they were glued. These were then dressed sterilely with Band-Aids. The patient was transferred back to their hospital bed atraumatically. Patient was then awakened and extubated by the department of anesthesia having tolerated the procedure very well with no complications. They were transferred to the postoperative care unit in stable condition.
[2024-04-12 08:48] VITALS: TEMP 97.7
--- NOTE | 2024-04-12 09:03 | FL ---
EXAMINATION TYPE: FL guidance operating room, XR lumbar spine 2 or 3V Intraoperative/procedural fluor oscopic services were provided. Total fluoroscopy time is 29.0 seconds with a total of 2 submitted im ages to PACS. Please see the operative/procedural note for further details. DAP: [id number] mGym2
[2024-04-12 11:20] VITALS: RESP 20
[2024-04-12 11:21] VITALS: BP 166/89; PULSE 59
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
== END 2024-04-12 11:12 | disposition home or self-care (01) ==
LOC: OR 06:12
PROVIDERS: ATTEND Orthopaedic Surgery
DX: M47.817 Spondylosis without myelopathy or radiculopathy, lumbosacral region
CPT/HCPCS: 72100; 86850; 86900; 86901

== ENCOUNTER → 2024-05-17 | Outpatient (CLI) | payer MEDICARE, BC ==
[2024-05-17 12:32] VITALS: BP 120/77; PULSE 69; RESP 16; TEMP 97.3
--- NOTE | 2024-05-17 15:27 | P.PAINPG ---
Objective - Vital Signs Vital signs: Intake & Output 05/16/24 05/17/24 05/17/24 18:59 06:59 18:59 Weight 106.594 kg PQRS Measure Charge Sheet Comment: A 78 yr old male with a history of severe and chronic LBP > 3 yr secondary to radiculopathy, spondylosis and facet arthropathy without myelopathy presents today for evaluation. Pain level is provoked at 10 /10 in intensity, constant, localized in his lumbar spine, predominantly axial, throbbing in character wi thout radiation. Pain is provoked by standing from a sitting position. Pain is alleviated with alternating ice & heat, ice, PT w massage x 6 wks in Spring 2021, physician guided home stretches every morning since Spring 2021, medications, sitting, repositioning and rest. Interventional pain procedures completed include R Hip injection x1, BL RFA L3- L5 (Oct 2023), BL TFESI L4-L5 x1 (Nov 2023), L5-S1 Transection (Mar 2024) Patient is currently on Tyl Patient denies any side effects of the medication(s), denies excessive drowsiness or sleepiness, denies suicidal ideation and reports that the current pain medication is helping to control the pain and improve activities of daily living. Patient denies any motor or sensory deficits. Patient denies any fever or night sweats, denies any change in the bowel movements or urination. Physical Examination: -Constitutional: Cooperative. Not in acute distress . - Neurologic: Cranial nerve II to XII intact. No focal neurological deficits. - Psychatric: Alert & oriented x 3. Matching mood & appropriate affect. Judgment and insight intact. - Musculoskeletal: Cervical spine: Muscle bulk/ tone/ strength in the bilateral upper extremities normal Vertebral body tenderness to palpation over Spurling test positive Distraction test positive Facet loading test positive Thoracic spine Muscle bulk / tone/ strength in the bilateral paraspinal muscles normal Vertebral body tender to palpation over Facet loading test positive Lumbar spine: Motor bulk/ tone/ strength lower extremities , thigh and legs : 5/5 Deep tendon reflexes : Normal Knee Jerk. Normal Ankle Jerk . Vertebral body tenderness to palpation L5 Lumbar Facet Loading Test positive over BL L4-L5 Straight Leg Raise: positive at 30 degrees right side/ left side Gaenslen's Test positive Sacral spine : Severe tenderness over the Sacroiliac joint: right side / left side Range of motion: Flexion of the lumbar spine <60 degrees Range of motion: Extension of the lumbar spine <20 degrees Gaenslen's Test positive Aníbal's Test positive Cristian test: positive right side / left side Thigh Thrust Test Sacral Thrust Test Imaging: MRI non contrast of the lumbar spine from 10/08/21 reviewed Assessment and plan: Chronic LBP secondary to L1 compression fracture, radiculopathy, spondylosis and facet arthropathy without myelopathy Recommendation of BL MBB L4-L5 #1. Risks, benefits of procedure discussed and pt verbalized understanding. Protocol for discontinuation/ continuation of medications fish procedure discussed. Minimal anesthesia including Fentanyl and Versed if clinically indicated. All patient questions answered I have spent less than 30 minutes on patient care today. Dr Bush was available by phone for the evaluation of this patient. The time was used to review the medical records including relevant urine studies and Prescription history (MAPs), review of the available imaging, evaluation and examination of the patient, coordination of care with the medical staff and if applicable referring physicians, as well as creation of the medical record PQRS Narrative: Smoking Status Former smoker Hx Alcohol Use (MH) No Home Medications: Ambulatory Orders Apixaban [Eliquis] 5 mg PO BID 01/14/18 Lansoprazole [Prevacid] 30 mg PO DAILY 12/20/20 Propafenone [Rythmol] 150 mg PO BID tab 10/20/21 Metoprolol Succinate (ER) [Toprol Xl] 12.5 mg PO HS 03/11/22 Pravastatin Sodium [Pravachol] 20 mg PO HS 03/11/22 glipiZIDE 7 mg PO DAILY 03/11/22 Budesonide-Formot 160-4.5 Mcg [Symbicort 160-4.5 Mcg Inhaler] 2 puff INHALATION BID PRN 05/21/22 Multivitamin [Multivitamins Adult Gummies] 1 dose PO QAM 10/14/23 Cyclobenzaprine [Flexeril] 5 mg PO TID #21 tablet 04/12/24 HYDROcodone/APAP 5-325MG [[place] 5-325] 1 tab PO Q6HR PRN #16 tab 04/12/24 Controlled Substance Measures - Controlled Substance Measures Is patient prescribed a controlled substance at discharge?: No
== END | disposition home or self-care (01) ==
LOC: PNWHC3 12:14
PROVIDERS: ATTEND Specialist
DX: M47.816 Spondylosis without myelopathy or radiculopathy, lumbar region (principal)
CPT/HCPCS: 99211

== ENCOUNTER → 2024-06-08 | Outpatient (CLI) | payer MEDICARE, BC ==
--- NOTE | 2024-06-08 16:03 | XR ---
EXAMINATION TYPE: XR KUB DATE OF EXAM: 06/08/2024 3:34 PM CLINICAL INDICATION: Male, 79 years old with history of R10.817 ABD TENDERNESS; [facility] COMPARISON: None. TECHNIQUE: One radiographic view of the abdomen was obtained. FINDINGS: The bowel gas pattern is nonspecific without dilated loops of small or large bowel. . Fecal material and gas are demonstrated throughout the colon and rectum. There is no evidence for organomegaly or pneumoperitoneum. The osseous structures are intact. No ab normal calcifications are present. Quadrant cholecystomy clips. Bilateral hip osteoarthrosis changes with osteophyte formation of the granados perior acetabulum and joint space narrowing. IMPRESSION: Nonspecific bowel gas pattern without radiographic evidence for acute process. [facility], , 06/08/2024 4:00 PM
[2024-06-08 19:23] LABS: Amylase 50 U/L (23-121); Lipase 22 U/L (14-60)
== END | disposition home or self-care (01) ==
LOC: LABWHC1 14:59
PROVIDERS: ATTEND Family Medicine
DX: R10.817 Generalized abdominal tenderness (principal)
CPT/HCPCS: 36415; 74018; 82150; 83690

== ENCOUNTER → 2024-07-06 | Day surgery (SDC) | payer MEDICARE, BC ==
[~2024-07-06] MED LIST changes: +LACTATED RINGERS 1,000 ML IV SCH; -ONDANSETRON 4 MG/2 ML VIAL IVP PRN; -TRANEXAMIC 1,000 MG/100ML-NACL 1,000 MG in SALINE 1 100ML.BAG IVPB PRN
[2024-07-06 11:32] VITALS: BP 157/83; PULSE 61; RESP 16; TEMP 97.6
[2024-07-06 11:38] LABS: Glucose,Whole Blood 120 mg/dL (70-110)
[2024-07-06] MEDS: IV FLUID CONTINUATION 1,000 ML IV ONE (11:38)
--- NOTE | 2024-07-06 12:52 | P.PN ---
Progress Note - Text Progress Note Date: 07/06/24 Is 79 years old male with a history of chronic and severe low back pain, diagnosed with lumbar spondylosis with lumbar facet arthropathy, previously in October 2023 we did RFA of the medial branch lumbar area at L4- 5 and L5-S1, will get 50% improvement of his pain level after the RFA, in March 2024 patient had transaction the medial branch at L5-S1 done by Dr. Horn, patient was referred to our pain clinic to have facet block at L4-5, and reviewed that the patient had radiofrequency the levels mentioned above done previously, is no reason to repeat the block at the same level, and I discussed with the patient and with Dr. Horn , that the best option for this patient is to have transection of the medial branch at L4-5, and will be seen by Dr. Horn, he will be scheduled to have the surgery by Dr. Horn in the near future
== END ==
LOC: ORPAIN 10:55
PROVIDERS: ATTEND Specialist
DX: Z53.8 Procedure and treatment not carried out for other reasons (principal); M47.816 Spondylosis without myelopathy or radiculopathy, lumbar region; G89.29 Other chronic pain

== ENCOUNTER 2024-09-10 10:04 | Inpatient (IN) | payer MEDICARE, BC ==
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
[2024-09-10] MEDS: SODIUM CHLORIDE 0.9% 1,000 ML IV STA ×2 (11:04→12:45)
[2024-09-10 11:10] LABS: Basophils % (A) 1 %; Eosinophils # (A) 0.3 k/uL (0-0.7); Eosinophils % (A) 5 %; HCT 49.2 % (39.0-53.0); HGB 16.7 gm/dL (13.0-17.5); Lymphocytes # (A) 0.8 k/uL (1.0-4.8); Lymphocytes % (A) 13 %; MCH 31.2 pg (25.0-35.0); MCHC 33.9 g/dL (31.0-37.0); MCV 92.1 fL (80.0-100.0); Mean Platelet Volume 9.5; Monocytes # (A) 0.4 k/uL (0-1.0); Monocytes % (A) 7 %; Neutrophils # (A) 4.9 k/uL (1.3-7.7); Neutrophils % (A) 74 %; Platelet Count 164 k/uL (150-450); RBC 5.34 m/uL (4.30-5.90); RDW 14.1 % (11.5-15.5); WBC 6.7 k/uL (3.8-10.6)
[2024-09-10 11:23] LABS: Appearance,Urine Cloudy (Clear); Bacteria,Urine Occasional /hpf; Bilirubin,Urine Negative (Negative); Blood,Urine Small (Negative); Color,Urine Yellow; Glucose,Urine (UA) Trace (Negative); Ketones,Urine Negative (Negative); Leukocyte Esterase,Urine Negative (Negative); Mucus,Urine Rare /hpf; Nitrite,Urine Negative (Negative); PH, Urine 5.5 (5.0-8.0); Protein,Urine 2+ (Negative); RBC,Urine 4 /hpf (0-5); Specific Gravity,Urine 1.014 (1.001-1.035); Squamous Epithelial Cell,Urine 2 /hpf (0-4); Urobilinogen,Urine <2.0 mg/dL (<2.0); WBC,Urine 7 /hpf (0-5)
[2024-09-10 11:24] LABS: INR 1.1 (<1.2); Partial Thromboplastin Time 34.8 sec (22.0-30.0); Prothrombin Time 12.1 sec (10.0-12.5)
--- NOTE | 2024-09-10 11:27 | XR ---
EXAMINATION TYPE: XR chest 2V DATE OF EXAM: 09/10/2024 11:22 AM COMPARISON: Chest x-ray March 15, 2024 CLINICAL INDICATION: Male, 79 years old with history of Weakness, TECHNIQUE: Frontal and lateral views of the chest are obtained. FINDINGS: There is some chronic parenchymal change bilaterally without suspicious focal air space op acity, pleural effusion, or pneumothorax seen. The cardiac silhouette size is within normal limits. The osseous structures are intact. IMPRESSION: Chronic changes without acute pulmonary process. [facility], , 09/10/2024 11:25 AM
[2024-09-10 11:29] LABS: ALT 120 U/L (4-49); AST 99 U/L (17-59); African American GFR (CKD) 22 (>60 ml/min/1.73 sqM); Albumin 3.9 g/dL (3.5-5.0); Alkaline Phosphatase 158 U/L (38-126); Anion Gap 20 mmol/L; Blood Urea Nitrogen 50 mg/dL (9-20); Calcium 9.4 mg/dL (8.4-10.2); Carbon Dioxide 18 mmol/L (22-30); Chloride 94 mmol/L (98-107); Glucose 117 mg/dL (74-99); Magnesium 2.2 mg/dL (1.6-2.3); Non-African American GFR(CKD) 19 (>60 ml/min/1.73 sqM); Phosphorus 6.8 mg/dL (2.5-4.5); Potassium 4.2 mmol/L (3.5-5.1); Sodium 132 mmol/L (137-145); Total Bilirubin 2.2 mg/dL (0.2-1.3)
[2024-09-10 11:35] LABS: NT-Pro-B-Type Natriuretic Pept 1470 pg/mL
[2024-09-10 12:01] LABS: Influenza A Not Detected (Not Detectd); Influenza B Not Detected (Not Detectd); RSV Not Detected (Not Detectd)
[2024-09-10] MEDS ORDERED: NALOXONE 0.4 MG/ML 1 ML VIAL IV PRN (12:16)
[2024-09-10] MEDS ORDERED: ONDANSETRON 4 MG TAB PO PRN (12:18)
[2024-09-10] MEDS ORDERED: FLUTICASONE NASAL 50MCG/SPRAY 16GM BTL EA NOSTRIL PRN (12:46)
--- NOTE | 2024-09-10 14:18 | CT ---
EXAMINATION TYPE: CT abdomen pelvis wo con CT DLP: 908.9 mGycm, Automated exposure control for dose reduction was used. DATE OF EXAM: 09/10/2024 1:56 PM COMPARISON: [facility] radiograph 06/08/2024, CT abdomen and pelvis 10/30/2017, 06/27/2016 CLINICAL INDICATION:Male, 79 years old with history of abdominal pain; low abd pain/achy all over TECHNIQUE: Standard CT of the abdomen and pelvis without IV or oral contrast. Lack of IV or oral co ntrast limits evaluation of solid and hollow organ viscera. Coronal and sagittal reformats were perfo rmed. FINDINGS: LOWER CHEST: Posterior dependent subsegmental atelectasis is noted. ABDOMEN LIVER: Unremarkable noncontrast appearance GALLBLADDER AND BILE DUCTS: The gallbladder is surgically absent. No biliary ductal dilatation. PANCREAS: Unremarkable noncontrast appearance SPLEEN: Unremarkable noncontrast appearance ADRENAL GLANDS: Unremarkable noncontrast appearance. KIDNEYS AND URETERS: No evidence of hydronephrosis or renal calculus. Bilateral renal cysts with larg est within the left kidney superior pole measuring up to 2.3 cm and largest within the right kidney e xophytically in the midportion measuring up to 4.9 cm. Bilateral perinephric fat stranding. No ureter al calculus is identified. PELVIS BLADDER: Unremarkable noncontrast appearance REPRODUCTIVE: Coarse calcifications of the prostate gland are identified. ABDOMEN & PELVIS STOMACH AND BOWEL: Stomach and duodenum are unremarkable. No focal bowel wall thickening or surroundi ng inflammatory changes. The appendix is not visualized. No significant inflammatory changes within t he right lower quadrant. No evidence of bowel obstruction. PERITONEUM: No evidence of pneumoperitoneum or free fluid. VASCULATURE: No evidence of aortic aneurysm. MUSCULOSKELETAL: No acute osseous abnormalities. Stable superior endplate compression deformity of th e L1 vertebral body. DISH of the visualized lower thoracic spine. LYMPH NODES: No gross evidence for lymphadenopathy. SOFT TISSUE/ABDOMINAL WALL: Unremarkable IMPRESSION: No CT evidence for acute abdominal/pelvic process within the limitations of a noncontrast exam. [facility], , 09/10/2024 2:15 PM
--- NOTE | 2024-09-10 14:19 | US ---
EXAMINATION TYPE: US kidneys/renal and bladder DATE OF EXAM: 09/10/2024 COMPARISON: CT same day CLINICAL INDICATION: Male, 79 years old with history of DEBBIE; DEBBIE TECHNIQUE: Grayscale imaging of the bilateral kidneys and urinary bladder: FINDINGS: EXAM MEASUREMENTS: Right Kidney: 13.4 x 6.7 x 6.8 cm Left Kidney: 13.0 x 6.3 x 6.2 cm Right Kidney: Slightly Enlarged. *Multiple anechoic areas seen, largest at mid: 5.7 x 5.0 x 3.9 cm. *Complex area seen laterally: 2.3 x 1.5 x 1.9 cm. *Tiny, hypoechoic area seen upper: 1.3 x 1.4 x 1.4 cm. Left Kidney: Multiple anechoic areas seen. *Complex area seen upper: 2.5 x 2.4 x 2.1 cm. Anechoic area- possible dilated upper collecting system: 1.3 x 0.8 x 1.7 cm. Bladder: Appears wnl Bilateral Jets seen: Yes IMPRESSION: No hydronephrosis is seen bilaterally. Several simple appearing thin-walled cysts throughout the bila teral kidneys are redemonstrated. [facility], , 09/10/2024 2:17 PM
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
[2024-09-10] MEDS ORDERED: DEXTROSE 50% SYRINGE 50 ML IVP PRN ×2 (15:48)
[2024-09-10 16:35] LABS: Glucose,Whole Blood 109 mg/dL (70-110)
[2024-09-10] MEDS: INSULIN ASPART (NovoLOG) 100 UNIT/ML VIAL SQ SCH (17:06)
[2024-09-10] MEDS: SYMBICORT 160-4.5 MCG INHALER INHALATION SCH (20:46)
[2024-09-10] MEDS ORDERED: APIXABAN 5 MG TAB PO SCH (21:00)
[2024-09-10] MEDS: PRAVASTATIN SODIUM 20 MG TAB PO SCH (21:19)
[2024-09-10] MEDS: PROPAFENONE 150 MG TAB PO SCH (21:20)
[2024-09-10] MEDS: CALCIUM CARBONATE 500 MG CHEWABLE PO PRN (21:20)
[2024-09-10] MEDS: AMITRIPTYLINE HCL 10 MG TAB PO SCH (21:20)
[2024-09-10] MEDS: APIXABAN 2.5 MG TABLET PO SCH (21:20)
[2024-09-10 21:38] LABS: Glucose,Whole Blood 174 mg/dL (70-110)
[2024-09-11 04:36] LABS: ALT 72 U/L (4-49); AST 44 U/L (17-59); African American GFR (CKD) 37 (>60 ml/min/1.73 sqM); Albumin 2.7 g/dL (3.5-5.0); Albumin/Globulin Ratio 1.1; Alkaline Phosphatase 112 U/L (38-126); Anion Gap 11 mmol/L; Blood Urea Nitrogen 46 mg/dL (9-20); Calcium 8.9 mg/dL (8.4-10.2); Carbon Dioxide 18 mmol/L (22-30); Chloride 107 mmol/L (98-107); Globulin 2.5 g/dL; Glucose 149 mg/dL (74-99); Magnesium 2.2 mg/dL (1.6-2.3); Non-African American GFR(CKD) 32 (>60 ml/min/1.73 sqM); Potassium 3.6 mmol/L (3.5-5.1); Sodium 136 mmol/L (137-145); Total Bilirubin 1.2 mg/dL (0.2-1.3); Total Protein 5.2 g/dL (6.3-8.2)
[2024-09-11 04:40] LABS: HCT 40.5 % (39.0-53.0); HGB 13.8 gm/dL (13.0-17.5); MCHC 34.2 g/dL (31.0-37.0); MCV 90.6 fL (80.0-100.0); Mean Platelet Volume 9.5; Platelet Count 167 k/uL (150-450); RBC 4.46 m/uL (4.30-5.90); RDW 13.9 % (11.5-15.5); WBC 4.4 k/uL (3.8-10.6)
[2024-09-11 05:44] LABS: Crenated RBC Present; Tear Drop Cells Present
[2024-09-11 06:44] LABS: Glucose,Whole Blood 121 mg/dL (70-110)
[2024-09-11] MEDS: METOPROLOL SUCCINATE (ER) 25 MG TAB.ER.24H PO SCH (08:05)
[2024-09-11] MEDS: FINASTERIDE 5 MG TAB PO SCH (08:05)
[2024-09-11] MEDS ORDERED: PANTOPRAZOLE 40 MG TABLET PO SCH (09:00)
[2024-09-11] MEDS ORDERED: metFORMIN 500 MG TAB PO SCH (09:00)
[2024-09-11] MEDS ORDERED: glipiZIDE 5 MG TAB PO SCH (09:00)
[2024-09-11] MEDS ORDERED: DAPAGLIFLOZIN PROPANEDIOL 10 MG TABLET PO SCH (09:00)
[2024-09-11 11:47] LABS: Glucose,Whole Blood 229 mg/dL (70-110)
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
--- NOTE | 2024-09-11 15:08 | P.PN ---
Subjective Progress Note Date: 09/11/24 Hospital Course: Patient is a very pleasant 79-year-old male with a past medical history of CAD, paroxysmal atrial fibrillation, hypertension, hyperlipidemia, previous PE, [id number]-feconqrna diabetes mellitus type 2, and GERD. He presented to the emergency department today secondary to progressive weakness, dizziness, nausea, and abdominal pain x 1 month. Patient reports he had influenza a last month and initially seemed to recover but approximately a week later began to develop the symptoms and they have progressively worsened. Patient reports he has attempted to follow-up in [facility] outpatient scheduled to undergo an ultrasound of his abdomen next week but states his weakness and dizziness have significantly worsened and he is now having difficulty even standing or ambulating a very short distance so he came to the hospital for evaluation. Upon arrival to our facility, patient underwent evaluation in the emergency department. Vital signs upon arrival show blood pressure 73/57, heart rate 95, respiratory rate 18, temp 98.1 F, and SpO2 of 97% on room air. EKG completed showing normal sinus rhythm at 94 bpm with no significant T wave or ST abnormalities showing no signs of acute ischemia upon personal review and interpretation. Chest x-ray negative for acute cardiopulmonary process. Labs completed and reviewed. CBC was unremarkable. Coagulation profile showing elevated PTT of 34.8 and D-dimer of 0.85 (D-dimer elevation normal for age correction). BMP showing hyponatremia with sodium of 132 and high anion gap metabolic alkalosis with chloride of 94, bicarb of 18, and anion gap of 20 and an acute kidney injury with BUN of 50, creatinine of 2.97, and GFR of 19 with baseline creatinine around 1.1 with most recent creatinine drawn 09/08/2024 of 1.5. Troponin 0.018 and proBNP 1470. Urinalysis showing positive for protein and trace glucose with 7 WBCs. Influenza A, influenza B, RSV, COVID PCR, and group A strep negative. Patient does endorse recent medication change as he was started on baclofen 10 mg 3 times daily as needed for his chronic neck and back pain. Patient admitted under our services with consultation to nephrology at this time. Physical exam: Patient seen and fully evaluated at bedside this morning. He reports feeling unchanged when compared to yesterday. Patient reports continued weakness and fatigue. He denies having any headache, lightheadedness, dizziness, chest pain, palpitations, shortness of breath, or any other complaints at this time. Perla ent urinating without difficulties and also reports normal bowel function. Patient continues to state that he is drinking plenty of water and his intake is adequate. Vital signs reviewed and stable. General: Nontoxic, no distress and appears stated age. Derm: Skin warm and dry, normal coloration for ethnicity. Head: Atraumatic, normocephalic and symmetric. Eyes: EOM's intact, no lid lag, and anicteric sclera Mouth: no lip lesions, mucus membranes moist Cardiovascular: regular rate and rhythm with normal S1S2, no murmur, positive posterior tibial pulses bilaterally, and cap refill < 2 seconds. Lungs: Respirations even, regular, and unlabored on room air. Lungs CTA bilaterally, no rhonchi, no rales, no wheezing, and no accessory muscle usage. Abdominal: soft, tenderness to right lower and left lower quadrant upon palpation, no guarding, no appreciable organomegaly Ext: ROM intact. No gross muscle atrophy, no edema, no contractures Neuro: Speech clear, face symmetrical and CN II-XII grossly intact with no noted focal neuro deficits Psych: Alert and oriented to person, place, time, and situation. Appropriate and pleasant affect. Assessment and Plan of Care: Acute kidney injury-suspect secondary to dehydration Hypotension High anion gap metabolic acidosis Transaminitis Generalized weakness Lower quadrant abdominal pain -Hypotension and renal function improving with IV fluid hydration.. Continue with 0.9% normal saline at 100 cc/h. -Transaminitis now resolved with IV fluid hydration. -Hold nephrotoxic medications including recently added baclofen along with Farxiga. -Nephrology following, reviewed documentation in chart. -Patient to remain on continuous telemetry monitoring -Orders placed for strict I's and O's and as needed bladder scans to monitor for retention/postvoid residual. -Consult placed to physical and Occupational Therapy for evaluation. -Maintain fall precautions orthostatic vital signs every shift. -Order placed for echocardiogram to evaluate EF as patient symptoms began shortly after influenza A infection rule out viral cardiomyopathy History of CAD Paroxysmal atrial fibrillation Hypertension Hyperlipidemia History of previous PE -Patient to continue cardiac medication regimen with Eliquis 2.5 mg twice daily per renal dosing, metoprolol 12.5 mg daily with parameters set to hold for systolic pressure less than 100, pravastatin 20 mg nightly, and Rythmol 150 mg twice daily. Pcx-acyeskw-omzayjaei diabetes mellitus -Hold Jardiance, glipizide, and metformin and placed patient on glycemic protocol with NovoLog sliding scale. -Hemoglobin A1c 6.9%. Coarse calcifications of prostate gland -Incidental finding on CT revealing coarse calcifications of the prostate gland. Recommend outpatient follow-up with urologist for further evaluation. Data and imaging reviewed: CT abdomen and pelvis completed showing no evidence for acute abdominal/pelvic process. Ultrasound kidneys/ureters/bladder showing no hydronephrosis reporting several simple appearing thin-walled cysts throughout bilateral kidneys redemonstrated. Labs reviewed. CBC unremarkable. BMP showing improvement of renal function with BUN of 46, creatinine 1.90, GFR of 32. Blood glucose 149. Hemoglobin A1c 6.9%. Liver profile showing elevated AST of 72 and low albumin of 2.7. TSH normal findings at 0.853. Vital signs reviewed. Blood pressure 135/78, heart rate 76, respiratory rate 16, temp 97.9 F, and SpO2 of 95% on room air CODE STATUS: Full code DVT prophylaxis: Eliquis Anticipated discharge date: Pending clinical course Anticipated discharge place: Home Patient was seen independently by Nurse Practitioner. This document was prepared using [employer] dictation software. Please allow for errors in mgmt consultant while rare they do occur. Wojciech Miles NP rendered care for this patient independently, reviewed the findings and plan as documented in the note above and agree with plan. I did not physically speak with or examine the patient on this date. Objective - Vital Signs Vital signs: Vital Signs Temp 97.9 F 09/11/24 07:22 Pulse 76 09/11/24 07:22 Resp 16 09/11/24 07:22 BP 135/78 09/11/24 07:22 Pulse Ox 95 09/11/24 07:22 FiO2 Intake & Output 09/10/24 09/11/24 09/11/24 18:59 06:59 18:59 Output Total 620 1750 400 Balance -620 -1750 -400 Weight 102.058 kg Output: Urine 620 1750 400 - Labs CBC & Chem 7: 09/11/24 03:19 09/11/24 03:19 Labs: Abnormal Lab Results - Last 24 Hours (Table) 09/10/24 09/10/24 09/10/24 Range/Units 10:46 10:46 10:46 Lymphocytes # 0.8 L (1.0-4.8) k/uL APTT 34.8 H (22.0-30.0) sec D-Dimer 0.85 H (<0.60) mg/L FEU Sodium (137-145) mmol/L Chloride (98-107) mmol/L Carbon Dioxide (22-30) mmol/L BUN (9-20) mg/dL Creatinine (0.66-1.25) mg/dL Glucose (74-99) mg/dL POC Glucose (mg/dL) (70-110) mg/dL Phosphorus (2.5-4.5) mg/dL Total Bilirubin (0.2-1.3) mg/dL AST (17-59) U/L ALT (4-49) U/L Alkaline Phosphatase (38-126) U/L Total Protein (6.3-8.2) g/dL Albumin (3.5-5.0) g/dL Urine Protein 2+ H (Negative) Urine Glucose (UA) Trace H (Negative) Urine Blood Small H (Negative) Urine WBC 7 H (0-5) /hpf Urine Bacteria Occasional H (None) /hpf Urine Mucus Rare H (None) /hpf 09/10/24 09/10/24 09/11/24 Range/Units 10:46 21:37 03:19 Lymphocytes # (1.0-4.8) k/uL APTT (22.0-30.0) sec D-Dimer (<0.60) mg/L FEU Sodium 132 L 136 L (137-145) mmol/L Chloride 94 L (98-107) mmol/L Carbon Dioxide 18 L 18 L (22-30) mmol/L BUN 50 H 46 H (9-20) mg/dL Creatinine 2.97 H 1.90 H (0.66-1.25) mg/dL Glucose 117 H 149 H (74-99) mg/dL POC Glucose (mg/dL) 174 H (70-110) mg/dL Phosphorus 6.8 H (2.5-4.5) mg/dL Total Bilirubin 2.2 H (0.2-1.3) mg/dL AST 99 H (17-59) U/L ALT 120 H 72 H (4-49) U/L Alkaline Phosphatase 158 H (38-126) U/L Total Protein 5.2 L (6.3-8.2) g/dL Albumin 2.7 L (3.5-5.0) g/dL Urine Protein (Negative) Urine Glucose (UA) (Negative) Urine Blood (Negative) Urine WBC (0-5) /hpf Urine Bacteria (None) /hpf Urine Mucus (None) /hpf 09/11/24 Range/Units 06:43 Lymphocytes # (1.0-4.8) k/uL APTT (22.0-30.0) sec D-Dimer (<0.60) mg/L FEU Sodium (137-145) mmol/L Chloride (98-107) mmol/L Carbon Dioxide (22-30) mmol/L BUN (9-20) mg/dL Creatinine (0.66-1.25) mg/dL Glucose (74-99) mg/dL POC Glucose (mg/dL) 121 H (70-110) mg/dL Phosphorus (2.5-4.5) mg/dL Total Bilirubin (0.2-1.3) mg/dL AST (17-59) U/L ALT (4-49) U/L Alkaline Phosphatase (38-126) U/L Total Protein (6.3-8.2) g/dL Albumin (3.5-5.0) g/dL Urine Protein (Negative) Urine Glucose (UA) (Negative) Urine Blood (Negative) Urine WBC (0-5) /hpf Urine Bacteria (None) /hpf Urine Mucus (None) /hpf
[2024-09-11] MEDS: SODIUM CHLORIDE 0.9% 1,000 ML IV SCH (15:13)
[2024-09-11 16:38] LABS: Glucose,Whole Blood 138 mg/dL (70-110)
[2024-09-11 20:10] LABS: Glucose,Whole Blood 173 mg/dL (70-110)
[2024-09-11] MEDS: ZOLPIDEM 5 MG TAB PO PRN (21:09)
[2024-09-12] MEDS: ACETAMINOPHEN TAB 325 MG TAB PO PRN (00:32)
[2024-09-12 06:22] LABS: Glucose,Whole Blood 130 mg/dL (70-110)
[2024-09-12 09:31] LABS: HCT 40.6 % (39.6-50.0); HGB 13.5 g/dL (13.0-17.0); MCH 30.2 pg (27.0-32.0); MCHC 33.3 g/dL (32.0-37.0); MCV 90.8 FL (80.0-97.0); Mean Platelet Volume 11.8 FL (9.5-12.2); NRBC Per 100 WBC 0 X 10*3/uL (0.00-0.01); Platelet Count 187 X 10*3/uL (140-440); RBC 4.47 X 10*6/uL (4.40-5.60); RDW 13.5 % (11.5-14.5); WBC 4.97 X 10*3/uL (4.50-10.00)
[2024-09-12 09:46] LABS: Magnesium 1.7 mg/dL (1.5-2.4)
--- NOTE | 2024-09-12 10:14 | CA ---
Transthoracic Echo Report Name: Jerry Sanders Age: 79 Gender: M : 1945 Exam Date: 09/11/2024 14:44 Exam Location: [facility] Ht (in): 72 Wt (lb): 225 Ordering Physician: Wojciech Miles Attending/Referring Phys: Motel Operator Ofelia Chahal RDCS Procedure CPT: Indications: eval EF s/t weakness and dizziness x 1 month Cardiac Hx: Technical Quality: Fair Contrast 1: Total Dose (mL): Contrast 2: Total Dose (mL): MEASUREMENTS (Male / Female) Normal Values 2D ECHO LV Diastolic Diameter PLAX 5.7 cm 4.2 - 5.9 / 3.9 - 5.3 cm LV Systolic Diameter PLAX 3.7 cm IVS Diastolic Thickness 1.2 cm 0.6 - 1.0 / 0.6 - 0.9 cm LVPW Diastolic Thickness 1.4 cm 0.6 - 1.0 / 0.6 - 0.9 cm LV Relative Wall Thickness 0.4 RV Internal Dim ED PLAX 2.0 cm LA Systolic Diameter LX 4.8 cm 3.0 - 4.0 / 2.7 - 3.8 cm LA Volume 65.2 cm??? 18 - 58 / 22 - 52 cm??? LA Volume Index 28.3 cm???/m??? 16 - 28 cm???/m??? M-MODE Aortic Root Diameter MM 3.3 cm LA Systolic Diameter MM 4.9 cm LA Ao Ratio MM 1.5 AV Cusp Separation MM 2.3 cm DOPPLER AI Peak Velocity 317.0 cm/s AI Peak Gradient 40.2 mmHg AI Pressure Half Time 1019.9 ms MV Area PHT 2.6 cm??? Mitral E Point Velocity 47.5 cm/s Mitral A Point Velocity 93.7 cm/s Mitral E to A Ratio 0.5 MV Deceleration Time 295.5 ms TR Peak Velocity 208.1 cm/s TR Peak Gradient 17.3 mmHg FINDINGS Left Ventricle Left ventricular ejection fraction is estimated at 50-55 %. Mildly increased septal wall thickness. No obvious regional wall motion abnormalities. Left ventricular cavity size normal. Right Ventricle Normal right ventricular size and function. Right Atrium Mild right atrial dilatation. Left Atrium Moderately increased left atrial diameter. Mildly increased left atrial volume. Mitral Valve Structurally normal mitral valve. Mild mitral regurgitation. No mitral stenosis. Aortic Valve Trileaflet aortic valve. Mild aortic regurgitation. No aortic stenosis. Tricuspid Valve Structurally normal tricuspid valve. Mild tricuspid regurgitation. No tricuspid stenosis. Pulmonic Valve Structurally normal pulmonic valve. No pulmonic stenosis. Trace pulmonic regurgitation. Pericardium No pericardial or pleural effusion. Aorta Normal size aortic root and proximal ascending aorta. CONCLUSIONS Normal LV function Mild aortic regurgitation Mild mitral regurgitation Previewed by: Dr. Shon Roque MD (Electronically Signed) Final Date: 12 September 2024 10:14
[2024-09-12] MEDS: MAGNESIUM SULFATE-D5W PMX 1 GM in DEXTROSE/WATER 1 100ML.BAG IVPB SCH (10:29)
[2024-09-12 11:08] LABS: ALT 50 U/L (10-49); AST 26 U/L (14-35); Albumin 3.1 g/dL (3.8-4.9); Albumin/Globulin Ratio 1.41 Ratio (1.60-3.17); Alkaline Phosphatase 92 U/L (41-126); Blood Urea Nitrogen 25.2 mg/dL (9.0-27.0); Carbon Dioxide 21.7 mmol/L (21.6-31.8); Chloride 108 mmol/L (96-109); Globulin 2.2 g/dL (1.6-3.3); Glucose 125 mg/dL (70-110); Potassium 3.3 mmol/L (3.5-5.5); Sodium 141 mmol/L (135-145); Total Bilirubin 0.8 mg/dL (0.3-1.2); Total Protein 5.3 g/dL (6.2-8.2)
[2024-09-12 11:40] LABS: Glucose,Whole Blood 194 mg/dL (70-110)
--- NOTE | 2024-09-12 13:04 | P.PN ---
Subjective Progress Note Date: 09/12/24 Patient seen in followup for DEBBIE. No new complaints and feeling better. Vital signs reviewed and stable. General: NAD, awake Head: Atraumatic, normocephalic and symmetric. Cardiovascular: regular rate and rhythm with normal S1S2, no edema Lungs: CTAB, no W/R/R Abdominal: soft, tenderness to right lower and left lower quadrant upon palpation, no guarding Objective - Vital Signs Vital signs: Vital Signs Temp 97.8 F 09/12/24 07:05 Pulse 65 09/12/24 07:05 Resp 17 09/12/24 07:05 BP 135/70 09/12/24 07:05 Pulse Ox 97 09/12/24 07:05 FiO2 Intake & Output 09/11/24 09/12/24 09/12/24 18:59 06:59 18:59 Intake Total 2380 780 Output Total 2325 600 Balance 55 180 Intake: Intake, IV Titration 1100 200 Amount Magnesium Sulfate-D5w Pmx 200 1 gm In Dextrose/Water 1 100ml.bag @ 100 mls/hr IVPB Q1H TISHA Rx#: [id number] Sodium Chloride 0.9% 1, 1100 000 ml @ 100 mls/hr IV . Q10H TISAH Rx#:[id number] Oral 1280 580 Output: Urine 2325 600 Other: Voiding Method Urinal - Labs CBC & Chem 7: 09/12/24 03:15 09/12/24 03:15 Labs: Abnormal Lab Results - Last 24 Hours (Table) 09/11/24 09/11/24 09/11/24 Range/Units 03:19 16:37 20:09 Potassium (3.5-5.5) mmol/L BUN/Creatinine Ratio (12.00-20.00) Ratio Glucose (70-110) mg/dL POC Glucose (mg/dL) 138 H 173 H (70-110) mg/dL Hemoglobin A1c 6.9 H (<=6.0) % ALT (10-49) U/L Total Protein (6.2-8.2) g/dL Albumin (3.8-4.9) g/dL Albumin/Globulin Ratio (1.60-3.17) Ratio 09/12/24 09/12/24 09/12/24 Range/Units 03:15 06:20 11:39 Potassium 3.3 L (3.5-5.5) mmol/L BUN/Creatinine Ratio 21.00 H (12.00-20.00) Ratio Glucose 125 H (70-110) mg/dL POC Glucose (mg/dL) 130 H 194 H (70-110) mg/dL Hemoglobin A1c (<=6.0) % ALT 50 H (10-49) U/L Total Protein 5.3 L (6.2-8.2) g/dL Albumin 3.1 L (3.8-4.9) g/dL Albumin/Globulin Ratio 1.41 L (1.60-3.17) Ratio Assessment and Plan Assessment: 1. Prerenal DEBBIE 2/2 hypotension. Baseline 1.0-1.2 mg/dL. Presented 3.0, improved to 1.2 today which is baseline. UA showed possible UTI. Good urine output. 2. Hypovolemic hyponatremia-Improved 3. Metabolic acidosis related to DEBBIE. 4. Generalized weakness suspect related to hypotension. 5. Hypotension likely volume depletion-Improved with IVF Plan: OK to discontinue IVF Can restart Jardiance Clear for discharge Replace potassium
[2024-09-12] MEDS: POTASSIUM CHLORIDE ER 20 MEQ TAB.ER PO STA (13:27)
--- NOTE | 2024-09-12 15:00 | P.PN ---
Subjective Progress Note Date: 09/12/24 Hospital Course: Patient is a very pleasant 79-year-old male with a past medical history of CAD, paroxysmal atrial fibrillation, hypertension, hyperlipidemia, previous PE, mud-bfazgig-myznlbfpz diabetes mellitus type 2, and GERD. He presented to the emergency department today secondary to progressive weakness, dizziness, nausea, and abdominal pain x 1 month. Patient reports he had influenza a last month and initially seemed to recover but approximately a week later began to develop the symptoms and they have progressively worsened. Patient reports he has attempted to follow-up in [facility] outpatient scheduled to undergo an ultrasound of his abdomen next week but states his weakness and dizziness have significantly worsened and he is now having difficulty even standing or ambulating a very short distance so he came to the hospital for evaluation. Upon arrival to our facility, patient underwent evaluation in the emergency department. Vital signs upon arrival show blood pressure 73/57, heart rate 95, respiratory rate 18, temp 98.1 F, and SpO2 of 97% on room air. EKG completed showing normal sinus rhythm at 94 bpm with no significant T wave or ST abnormalities showing no signs of acute ischemia upon personal review and interpretation. Chest x-ray negative for acute cardiopulmonary process. Labs completed and reviewed. CBC was unremarkable. Coagulation profile showing elevated PTT of 34.8 and D-dimer of 0.85 (D-dimer elevation normal for age correction). BMP showing hyponatremia with sodium of 132 and high anion gap metabolic alkalosis with chloride of 94, bicarb of 18, and anion gap of 20 and an acute kidney injury with BUN of 50, creatinine of 2.97, and GFR of 19 with baseline creatinine around 1.1 with most recent creatinine drawn 09/08/2024 of 1.5. Troponin 0.018 and proBNP 1470. Urinalysis showing positive for protein and trace glucose with 7 WBCs. Influenza A, influenza B, RSV, COVID PCR, and group A strep negative. Patient does endorse recent medication change as he was started on baclofen 10 mg 3 times daily as needed for his chronic neck and back pain. Patient admitted under our services with consultation to nephrology at this time. Physical exam: Patient seen and fully evaluated at bedside this morning. He reports continuing to feel slightly dizzy/lightheaded especially on standing. Orthostatic vitals were positive for orthostatic hypotension. Discussed with patient increase ambulation and out of bed today and awaiting PT/OT to evaluate for safe dischar ge. Vital signs reviewed and stable. General: Nontoxic, no distress and appears stated age. Derm: Skin warm and dry, normal coloration for ethnicity. Head: Atraumatic, normocephalic and symmetric. Eyes: EOM's intact, no lid lag, and anicteric sclera Mouth: no lip lesions, mucus membranes moist Cardiovascular: regular rate and rhythm with normal S1S2, no murmur, positive posterior tibial pulses bilaterally, and cap refill < 2 seconds. Lungs: Respirations even, regular, and unlabored on room air. Lungs CTA bilaterally, no rhonchi, no rales, no wheezing, and no accessory muscle usage. Abdominal: soft, tenderness to right lower and left lower quadrant upon palpation, no guarding, no appreciable organomegaly Ext: ROM intact. No gross muscle atrophy, no edema, no contractures Neuro: Speech clear, face symmetrical and CN II-XII grossly intact with no noted focal neuro deficits Psych: Alert and oriented to person, place, time, and situation. Appropriate and pleasant affect. Assessment and Plan of Care: Acute kidney injury-suspect secondary to dehydration Hypotension High anion gap metabolic acidosis Transaminitis Generalized weakness Lower quadrant abdominal pain -Hypotension and renal function improved with IV fluid hydration.. -Transaminitis resolved after IV fluid hydration. -Hold nephrotoxic medications including recently added baclofen along with Farxiga. -Nephrology following, reviewed documentation in chart. -Patient to remain on continuous telemetry monitoring -Continue I's and O's and as needed bladder scans to monitor for retention/postvoid residual. -Awaiting evaluation by physical and occupational therapist. -Maintain fall precautions. Orthostatic vital signs every shift. -Cardiogram was completed showing a preserved EF of 50 to 55% with mild aortic and mitral regurgitation. History of CAD Paroxysmal atrial fibrillation Hypertension Hyperlipidemia History of previous PE -Patient to continue cardiac medication regimen with Eliquis 2.5 mg twice daily per renal dosing, metoprolol 12.5 mg daily with parameters set to hold for systolic pressure less than 100, pravastatin 20 mg nightly, and Rythmol 150 mg twice daily. Fqt-yiqkogm-naiuobvfl diabetes mellitus -Hold Jardiance, glipizide, and metformin and placed patient on glycemic protocol with NovoLog sliding scale. -Hemoglobin A1c 6.9%. Coarse calcifications of prostate gland -Incidental finding on CT revealing coarse calcifications of the prostate gland. Recommend outpatient follow-up with urologist for further evaluation. Data and imaging reviewed: Labs reviewed. CBC unremarkable. BMP showing resolution of DEBBIE with BUN 25.2, creatinine of 1.2, and GFR of 61. Blood glucose 125. Patient with mild hypokalemia with potassium of 3.3, replaced with K-Dur and hypomagnesemia with magnesium of 1.7 replace with magnesium sulfate. Liver profile showing slightly elevated ALT of 50 and a low albumin of 3.1. Vital signs reviewed. Blood pressure 135/70, heart rate 65, respiratory rate 17, temp 97.8 F, and SpO2 of 97% on room air. CODE STATUS: Full code DVT prophylaxis: Eliquis Anticipated discharge date: Likely discharge home tomorrow morning, patient continues to have dizziness/lightheadedness upon standing awaiting PT/OT to eval to ensure safe discharge. Anticipated discharge place: Home Patient was seen independently by Nurse Practitioner. This document was prepared using [employer] dictation software. Please allow for errors in donkey engine firer/fireman while rare they do occur. Wojciech Miles NP rendered care for this patient independently, reviewed the findings and plan as documented in the note above and agree with plan. I did not physically speak with or examine the patient on this date. Objective - Vital Signs Vital signs: Vital Signs Temp 97.8 F 09/12/24 07:05 Pulse 65 09/12/24 07:05 Resp 17 09/12/24 07:05 BP 135/70 09/12/24 07:05 Pulse Ox 97 09/12/24 07:05 FiO2 Intake & Output 09/11/24 09/12/24 09/12/24 18:59 06:59 18:59 Intake Total 2380 Output Total 2325 Balance 55 Intake: Intake, IV Titration 1100 Amount Sodium Chloride 0.9% 1, 1100 000 ml @ 100 mls/hr IV . Q10H TISHA Rx#:[id number] Oral 1280 Output: Urine 2325 Other: Voiding Method Urinal - Labs CBC & Chem 7: 09/12/24 03:15 09/12/24 03:15 Labs: Abnormal Lab Results - Last 24 Hours (Table) 09/11/24 09/11/24 09/11/24 Range/Units 03:19 11:45 16:37 POC Glucose (mg/dL) 229 H 138 H (70-110) mg/dL Hemoglobin A1c 6.9 H (<=6.0) % 09/11/24 09/12/24 Range/Units 20:09 06:20 POC Glucose (mg/dL) 173 H 130 H (70-110) mg/dL Hemoglobin A1c (<=6.0) %
[2024-09-12 16:39] LABS: Glucose,Whole Blood 160 mg/dL (70-110)
[2024-09-12 20:18] LABS: Glucose,Whole Blood 159 mg/dL (70-110)
[2024-09-13 06:20] LABS: Glucose,Whole Blood 165 mg/dL (70-110)
[2024-09-13 07:37] VITALS: BP 158/81; PULSE 66; RESP 18; TEMP 98
[2024-09-13 10:02] LABS: African American GFR (CKD) 84 (>60 ml/min/1.73 sqM); Anion Gap 10 mmol/L; Blood Urea Nitrogen 18 mg/dL (9-20); Calcium 9.5 mg/dL (8.4-10.2); Carbon Dioxide 31 mmol/L (22-30); Chloride 99 mmol/L (98-107); Glucose 226 mg/dL (74-99); Magnesium 1.4 mg/dL (1.6-2.3); Non-African American GFR(CKD) 73 (>60 ml/min/1.73 sqM); Potassium 3.9 mmol/L (3.5-5.1); Sodium 140 mmol/L (137-145)
--- NOTE | 2024-09-13 11:36 | P.PN ---
Subjective Patient is seen in follow-up for acute kidney injury. Renal function continues to improve. No vomiting or diarrhea. Tolerating oral intake. Vital signs are stable. General: No acute distress. HEENT: Head exam is unremarkable. LUNGS: No audible rhonchi or wheezes. HEART: Rate and Rhythm are regular. ABDOMEN: Nontender. EXTREMITITES: No edema. Objective - Vital Signs Vital signs: Vital Signs Temp 98 F 09/13/24 06:44 Pulse 66 09/13/24 06:44 Resp 18 09/13/24 06:44 BP 158/81 09/13/24 06:44 Pulse Ox 97 09/13/24 06:44 FiO2 Intake & Output 09/12/24 09/13/24 09/13/24 18:59 06:59 18:59 Intake Total 1120 Output Total 1400 Balance -280 Intake: Intake, IV Titration 200 Amount Magnesium Sulfate-D5w Pmx 200 1 gm In Dextrose/Water 1 100ml.bag @ 100 mls/hr IVPB Q1H TISHA Rx#: [id number] Oral 920 Output: Urine 1400 Other: # Voids 2 - Labs CBC & Chem 7: 09/12/24 03:15 09/13/24 09:12 Labs: Abnormal Lab Results - Last 24 Hours (Table) 09/12/24 09/12/24 09/12/24 Range/Units 11:39 16:38 20:17 Carbon Dioxide (22-30) mmol/L Glucose (74-99) mg/dL POC Glucose (mg/dL) 194 H 160 H 159 H (70-110) mg/dL Magnesium (1.6-2.3) mg/dL 09/13/24 09/13/24 Range/Units 06:18 09:12 Carbon Dioxide 31 H (22-30) mmol/L Glucose 226 H (74-99) mg/dL POC Glucose (mg/dL) 165 H (70-110) mg/dL Magnesium 1.4 L (1.6-2.3) mg/dL Assessment and Plan Plan: Assessment: 1. Acute kidney injury secondary to vasomotor nephropathy. Improved. Creatinine 0.98 today. No hydronephrosis noted on CT. 2. Hypovolemic hyponatremia. Improved. 3. Metabolic acidosis secondary to acute kidney injury and IV fluids. Improved. 4. Hypotension secondary to hypovolemia. Resolved. 5. Diabetes mellitus. Plan: Encouraged oral intake. Avoid nephrotoxins. Follow-up outpatient 1 week postdischarge. Okay to resume Jardiance upon discharge.
[2024-09-13] MEDS: MAGNESIUM OXIDE 400 MG TAB PO STA (11:52)
[2024-09-13 11:54] LABS: Glucose,Whole Blood 168 mg/dL (70-110)
[2024-09-13] MEDS: MAGNESIUM SULFATE-D5W PMX 1 GM in DEXTROSE/WATER 1 100ML.BAG IVPB SCH (11:56)
--- NOTE | 2024-09-13 18:56 | P.DS ---
Providers Date of admission: 09/10/24 12:06 Expected date of discharge: 09/13/24 Attending physician: Jarod Grove MD Consults: 09/10/24 12:16 Consult Physician Stat Consulting Provider: Nikki Lyman Consult Reason/Comments: DEBBIE Do you want consulting provider notified?: Yes Primary care physician: Carloz [facility] Course: Discharge Diagnosis: Acute kidney injury- secondary to dehydration Hypotension, resolved with IV fluid hydration. High anion gap metabolic acidosis, resolved with IV fluid hydration Transaminitis, resolved with IV fluid hydration. Generalized weakness. Resolved. Lower quadrant abdominal pain, resolved. History of CAD Paroxysmal atrial fibrillation Hypertension Hyperlipidemia History of previous PE Tpr-ixwjbfl-eepxeohyt diabetes mellitus Hemoglobin A1c 6.9%. Coarse calcifications of prostate gland. Incidental finding on CT revealing coarse calcifications of the prostate gland. Recommend outpatient follow-up with urologist for further evaluation. Hospital Course: Patient is a very pleasant 79-year-old male with a past medical history of CAD, paroxysmal atrial fibrillation, hypertension, hyperlipidemia, previous PE, ibs-gvoioll-ucfbvngti diabetes mellitus type 2, and GERD. He presented to the emergency department today secondary to progressive weakness, dizziness, nausea, and abdominal pain x 1 month. Patient reports he had influenza a last month and initially seemed to recover but approximately a week later began to develop the symptoms and they have progressively worsened. Patient reports he has attempted to follow-up in [facility] outpatient scheduled to undergo an ultrasound of his abdomen next week but states his weakness and dizziness have significantly worsened and he is now having difficulty even standing or ambulating a very short distance so he came to the hospital for evaluation. Upon arrival to our facility, patient underwent evaluation in the emergency department. Vital signs upon arrival show blood pressure 73/57, heart rate 95, respiratory rate 18, temp 98.1 F, and SpO2 of 97% on room air. EKG completed showing normal sinus rhythm at 94 bpm with no significant T wave or ST abnormalities showing no signs of acute ischemia upon personal review and interpretation. Chest x-ray negative for acute cardiopulmonary process. Labs completed and reviewed. CBC was unremarkable. Coagulation profile showing elevated PTT of 34.8 and D-dimer of 0.85 (D-dimer elevation normal for age correction). BMP showing hyponatremia with sodium of 132 and high anion gap metabolic alkalosis with chloride of 94, bicarb of 18, and anion gap of 20 and an acute kidney injury with BUN of 50, creatinine of 2.97, and GFR of 19 with baseline creatinine around 1.1 with most recent creatinine drawn 09/08/2024 of 1.5. Troponin 0.018 and proBNP 1470. Urinalysis showing positive for protein and trace glucose with 7 WBCs. Influenza A, influenza B, RSV, COVID PCR, and group A strep negative. Patient does endorse recent medication change as he was started on baclofen 10 mg 3 times daily as needed for his chronic neck and back pain. Patient admitted under our services with consultation to nephrology at this time. Patient received IV fluid hydration and was evaluated by nephrology. Renal function and hypotension improved after IV fluid hydration. DEBBIE resolved with BUN 18, creatinine 0.98, and GFR of 73 on day of discharge. Patient reports improvement of weakness and ambulating in room without any difficulties. Patient reports feeling much better at this time and is medically optimized for discharge. Patient to follow-up outpatient with PCP in 1 to 2 days. Physical exam: Vital signs reviewed and stable. General: Nontoxic, no distress and appears stated age. Derm: Skin warm and dry, normal coloration for ethnicity. Head: Atraumatic, normocephalic and symmetric. Eyes: EOM's intact, no lid lag, and anicteric sclera Mouth: no lip lesions, mucus membranes moist Cardiovascular: regular rate and rhythm with normal S1S2, no murmur, positive posterior tibial pulses bilaterally, and cap refill < 2 seconds. Lungs: Respirations even, regular, and unlabored on room air. Lungs CTA bilaterally, no rhonchi, no rales, no wheezing, and no accessory muscle usage. Abdominal: soft, tenderness to right lower and left lower quadrant upon palpation, no guarding, no appreciable organomegaly Ext: ROM intact. No gross muscle atrophy, no edema, no contractures Neuro: Speech clear, face symmetrical and CN II-XII grossly intact with no noted focal neuro deficits Psych: Alert and oriented to person, place, time, and situation. Appropriate and pleasant affect. A total of 37 minutes of time were spent preparing this complex discharge summary. Pt was discharged on 09/13/2024 at 11:01 AM. Patient was seen independently by Nurse Practitioner. This document was prepared using [employer] dictation software. Please allow for errors in healthcare customer service while rare they do occur. Wojciech Jd, CONSTRUCTION ADMINISTRATIVE ASSISTANT rendered care for this patient independently, reviewed the findings and plan as documented in the note above. I did not physically speak with or examine the patient on this date. Patient Condition at Discharge: Stable Plan - Discharge Summary Discharge Rx Participant: No New Discharge Prescriptions: New Magnesium Oxide [Mag-Ox] 400 mg PO DAILY 30 Days #30 tablet Continue Apixaban [Eliquis] 5 mg PO BID Lansoprazole [Prevacid] 30 mg PO DAILY Propafenone [Rythmol] 150 mg PO BID tab Pravastatin Sodium [Pravachol] 20 mg PO HS Metoprolol Succinate (ER) [Toprol XL] 12.5 mg PO DAILY Finasteride [Proscar] 5 mg PO DAILY Fluticasone Propion/Salmeterol [Advair Hfa 115-21 Mcg Inhaler] 2 puff INHALATION RT-BID Ammonium Lactate Lotion [Lac-Hydrin 12% Lotion] 1 applic TOPICAL BID PRN PRN Reason: Dry Skin Fluticasone Nasal [place] [Flonase Nasal [place]] 1 spray EA NOSTRIL BID PRN PRN Reason: Allergy Symptoms Ondansetron [Zofran] 4 mg PO TID PRN PRN Reason: Nausea Amitriptyline HCl 10 mg PO HS Zolpidem [Ambien] 5 mg PO HS PRN PRN Reason: Insomnia glipiZIDE XL [Glucotrol XL] 10 mg PO DAILY Empagliflozin [Jardiance] 25 mg PO DAILY metFORMIN HCL 500 mg PO DAILY Discontinued Baclofen 10 mg PO TID PRN PRN Reason: Muscle Spasm Discharge Medication List Apixaban [Eliquis] 5 mg PO BID 01/14/18 [History] Lansoprazole [Prevacid] 30 mg PO DAILY 12/20/20 [History] Propafenone [Rythmol] 150 mg PO BID tab 10/20/21 [Rx] Metoprolol Succinate (ER) [Toprol XL] 12.5 mg PO DAILY 03/11/22 [History] Pravastatin Sodium [Pravachol] 20 mg PO HS 03/11/22 [History] Amitriptyline HCl 10 mg PO HS 07/05/24 [History] Finasteride [Proscar] 5 mg PO DAILY 07/05/24 [History] Ammonium Lactate Lotion [Lac-Hydrin 12% Lotion] 1 applic TOPICAL BID PRN 09/10/24 [History] Empagliflozin [Jardiance] 25 mg PO DAILY 09/10/24 [History] Fluticasone Nasal [place] [Flonase Nasal [place]] 1 spray EA NOSTRIL BID PRN 09/10/24 [History] Fluticasone Propion/Salmeterol [Advair Hfa 115-21 Mcg Inhaler] 2 puff INHALATION RT-BID 09/10/24 [History] Ondansetron [Zofran] 4 mg PO TID PRN 09/10/24 [History] Zolpidem [Ambien] 5 mg PO HS PRN 09/10/24 [History] glipiZIDE XL [Glucotrol XL] 10 mg PO DAILY 09/10/24 [History] metFORMIN HCL 500 mg PO DAILY 09/10/24 [History] Magnesium Oxide [Mag-Ox] 400 mg PO DAILY 30 Days #30 tablet 09/13/24 [Rx] Follow up Appointment(s)/Referral(s): Carloz Metzger DO [Primary Care Provider] - 1-2 days (office busy at time of discharge. Please call to schedule appointment) Patient Instructions/Handouts: Dehydration (DC), Acute Kidney Injury (DC) Activity/Diet/Wound Care/Special Instructions: Activity: As tolerated. Take breaks as needed. Diet: Heart healthy and carb consistent diet. Avoid salts, or foods with hidden salts such as canned or boxed foods and frozen dinners. Extra salt makes your heart work harder and traps the fluid in your body for longer. Special Instructions: Take all of your medications as directed and remember to keep all of your doctor's appointments and follow-up as needed. Thank you for allowing us to participate in your care, it was truly a pleasure having you for our patient!!! Discharge Disposition: HOME SELF-CARE
[2024-09-13] MEDS ORDERED: APIXABAN 5 MG TAB PO SCH (21:00)
== END 2024-09-13 13:55 | disposition home or self-care (01) | DRG 640 ==
LOC: EC 10:04 → 4SSUR 12:06
PROVIDERS: ADMIT Internal Medicine; ATTEND Internal Medicine
DX: E86.0 Dehydration (principal); N17.0 Acute kidney failure with tubular necrosis; E86.1 Hypovolemia; E87.4 Mixed disorder of acid-base balance; E87.20 Acidosis, unspecified; E83.39 Other disorders of phosphorus metabolism; I48.0 Paroxysmal atrial fibrillation; E11.9 Type 2 diabetes mellitus without complications; J45.909 Unspecified asthma, uncomplicated; I10 Essential (primary) hypertension; I08.3 Combined rheumatic disorders of mitral, aortic and tricuspid valves; E87.1 Hypo-osmolality and hyponatremia; Z11.52 Encounter for screening for COVID-19; E78.5 Hyperlipidemia, unspecified; I95.89 Other hypotension; R74.01 Elevation of levels of liver transaminase levels; F41.9 Anxiety disorder, unspecified; I25.10 Atherosclerotic heart disease of native coronary artery without angina pectoris; N42.89 Other specified disorders of prostate; R79.1 Abnormal coagulation profile; Z79.01 Long term (current) use of anticoagulants; Z79.84 Long term (current) use of oral hypoglycemic drugs; Z79.899 Other long term (current) drug therapy; Z86.711 Personal history of pulmonary embolism; Z87.891 Personal history of nicotine dependence; Z90.49 Acquired absence of other specified parts of digestive tract
CPT/HCPCS: 36415; 71046; 74176; 76770; 80048; 80053; 81001; 83036; 83605; 83735; 83880; 84100; 84443; 84484; 85025; 85027; 85379; 85610; 85730; 87636; 87651; 93005; 93306; 94640; 94760; 96360; 96361; 99285

== ENCOUNTER → 2024-10-16 | Outpatient (CLI) | payer MEDICARE, BC ==
[2024-10-17 06:42] LABS: Basophils # (A) 0.04 X 10*3/uL (0.00-0.10); Basophils % (A) 0.7 %; Eosinophils # (A) 0.18 X 10*3/uL (0.04-0.35); HCT 47.2 % (39.6-50.0); HGB 15.2 g/dL (13.0-17.0); Lymphocytes % (A) 35.2 %; MCHC 32.2 g/dL (32.0-37.0); MCV 96.1 FL (80.0-97.0); Mean Platelet Volume 12.1 FL (9.5-12.2); Monocytes # (A) 0.69 X 10*3/uL (0.20-1.00); Monocytes % (A) 11.6 %; NRBC Per 100 WBC 0 X 10*3/uL (0.00-0.01); Neutrophils # (A) 2.92 X 10*3/uL (1.80-7.70); Platelet Count 202 X 10*3/uL (140-440); RBC 4.91 X 10*6/uL (4.40-5.60); RDW 14.7 % (11.5-14.5); WBC 5.96 X 10*3/uL (4.50-10.00)
[2024-10-17 07:24] LABS: ALT 27 U/L (10-49); AST 21 U/L (14-35); Alkaline Phosphatase 49 U/L (41-126); BUN/Creat Ratio 22.27 Ratio (12.00-20.00); Blood Urea Nitrogen 24.5 mg/dL (9.0-27.0); Calcium 9.5 mg/dL (8.7-10.3); Carbon Dioxide 26.4 mmol/L (21.6-31.8); Chloride 106 mmol/L (96-109); Chol/HDL Ratio 3.33 Ratio; Globulin 2.5 g/dL (1.6-3.3); Glucose 171 mg/dL (70-110); LDL Cholesterol,Calculated 98.8 mg/dL (0.0-131.0); Magnesium 1.9 mg/dL (1.5-2.4); PSA Annual Screen 0.334 ng/mL (0.000-4.000); Potassium 4.8 mmol/L (3.5-5.5); Sodium 142 mmol/L (135-145); Total Bilirubin 0.8 mg/dL (0.3-1.2); Total Protein 6.5 g/dL (6.2-8.2)
[2024-10-17 08:25] LABS: Microalbumin Creatinine Ratio <10 mg/g Cr (0-30)
== END | disposition home or self-care (01) ==
LOC: LABWHC1 08:50
PROVIDERS: ATTEND Internal Medicine
DX: Z12.5 Encounter for screening for malignant neoplasm of prostate (principal); I10 Essential (primary) hypertension; E78.2 Mixed hyperlipidemia; N40.0 Benign prostatic hyperplasia without lower urinary tract symptoms
CPT/HCPCS: 80061; 80053; 84443; 83735; 85025; 82043; 82570; 36415; G0103

== ENCOUNTER → 2024-10-19 | Outpatient (CLI) | payer MEDICARE, BC ==
--- NOTE | 2024-10-19 09:41 | MR ---
MR MRCP INDICATION: Patient age:Male; 79 years old; Reason for study: E80.6 OTHER DISORDERS OF BILIRUBIN METABOLISM; PHH. COMPARISON: CT abdomen and pelvis 09/10/2024. TECHNIQUE: Multi planar, T2-weighted imaging with and without fat saturation and chemical shift imag ing was performed of the abdomen. Then, heavily T2 weighted imaging was utilized in order to study th e biliary system. Maximum intensity projection images were reconstructed from the original data of t he biliary tree. No Gadolinium given. FINDINGS: MRCP: The intrahepatic ducts have a normal appearance. The common bile duct at the level of the roman creatic head measures 7 mm in size. The common hepatic duct measures 8 mm in size. The pancreatic du ct is normal. The gallbladder is surgically absent. Abdomen: The spleen, adrenal glands, and pancreas have a normal noncontrast appearance. Punctate T2 h yperintense focus within the right hepatic lobe most consistent with a cyst. Bilateral T2 hyperintens e thin-walled cysts involving both kidneys. Largest in the right measures up to 5.9 cm. Largest on th e left measures up to 2.3 cm. IMPRESSION: 1. No evidence to suggest ductal stricture, choledocholithiasis, or biliary ductal dilatation. 2. Hepatic and renal cysts. 3. Postcholecystectomy changes. [facility], , 10/19/2024 9:39 AM
== END | disposition home or self-care (01) ==
LOC: RADMRIMAIN 08:17
PROVIDERS: ATTEND Internal Medicine
DX: E80.6 Other disorders of bilirubin metabolism (principal); N28.1 Cyst of kidney, acquired; K76.89 Other specified diseases of liver; Z90.49 Acquired absence of other specified parts of digestive tract
CPT/HCPCS: 74181